=== PATIENT | male | born 1955 | race Caucasian/White ===

== ENCOUNTER 2020-01-23 20:36 | Inpatient (IN) | payer BC, SELFPAY ==
[2020-01-23] VITALS (21 sets, daily range): BP systolic 121–160; BP diastolic 68–94; PULSE 50–65; RESP 15–20; TEMP 36.3; O2SAT 79–99
[2020-01-23 20:56] LABS: Basophils Absolute Auto 0.1 K/mm3 (0.0-0.1); Basophils Percent Auto 1.1 % (0.2-1.2); Eosinophils Absolute Auto 0.3 K/mm3 (0-0.3); Eosinophils Percent Auto 3.5 % (0-4.4); Hematocrit 44.3 % (42.0-52.0); Immature Granulocyte Absolute 0.03 K/mm3 (0.00-0.031); Immature Granulocyte Percent A 0.4 % (0-0.5); Lymphocytes Absolute Auto 2.13 K/mm3 (0.9-3.2); Lymphocytes Percent Auto 26.3 % (18.3-44.2); Mean Corpuscular HGB Conc 31.6 g/dl (32-36); Mean Corpuscular Hemoglobin 27.9 pg (26-34); Mean Corpuscular Volume 88.4 fl (80-100); Mean Platelet Volume 9.9 fl (7.4-10.4); Monocytes Absolute Auto 0.6 K/mm3 (0.1-0.6); Monocytes Percent Auto 7.9 % (2.6-8.5); Neutrophils Absolute Auto 4.9 K/mm3 (1.3-6.7); Neutrophils Percent Auto 60.8 % (45.5-73.1); Platelet Count Result 266 k/mm3 (150-375); Red Blood Count 5.01 M/mm3 (4.6-6.20); Red Cell Distribution Width 13.5 % (11.5-14.5); White Blood Count 8.1 K/mm3 (4.5-10.0)
--- NOTE | 2020-01-23 21:03 | ED.GENADULT ---
HPI - General Adult General Chief complaint: GI Bleed Stated complaint: bloody stools Time Seen by Provider: 01/23/20 20:40 Source: RN notes reviewed History of Present Illness HPI narrative: Patient presents emergency department from home for GI bleed. Patient states he has had 3 episodes of bright red diarrhea today. He denies having any abdominal pain with the symptoms denies any fevers or chills chest pain shortness of breath or any other symptoms denies any blood thinner use Related Data Home Medications Medication Instructions Recorded Confirmed atorvastatin 20 mg PO DAILY 01/23/20 diclofenac sodium 150 mg PO DAILY 01/23/20 Allergies Allergy/AdvReac Type Severity Reaction Status Date / Time No Known Allergies Allergy Unverified 07/12/12 19:27 Review of Systems Review of Systems: Narrative: Gen.: Denies fevers or chills ENT: Denies congestion Respiratory: Denies shortness of breath or cough CV: Denies chest pain or palpitations GI: Denies abdominal pain nausea, emesis or diarrhea GI bleed Musculoskeletal: Denies back pain or muscle pain Neuro: Denies numbness, tingling, weakness or focal weakness Skin: Denies rash Except as documented, all other systems reviewed and negative [facility] Past Medical History Medical History (Updated 01/23/20 @ 22:35 by Aldo Garnett DO) Hypercholesterolemia Social History Social History (Updated 01/23/20 @ 21:04 by Aldo Garnett DO) Smoking status: Never smoker Exam Narrative: Exam Narrative: APPEARANCE: No acute distress, nontoxic, resting in bed EYES: EOMI HEENT: Normocephalic, atraumatic, OMM RESPIRATORY: No respiratory distress Clear to auscultation bilaterally with no rhonchi wheezing or rales. CARDIOVASCULAR: Regular rate and rhythm without murmurs rubs or gallops. ABDOMINAL: Soft, nontender, nondistended, no rebound or guarding Rectal: Moderate amount of dark brown stool that is Hemoccult positive MUSCULOSKELETAl: Moves all extremities. No clubbing, cyanosis or edema. NEURO: Awake and alert. Following commands, speech normal, no focal deficits SKIN:: Warm, dry. No rashes lesions or abrasions PSYCHIATRIC: Normal affect/mood, Course Course Emergency Course: Discussed with Dr. Sun sensation work-up. This time recommends admission for observation with patient to be started on Zosyn for possible GI infection Discussed Dr. Way presentation work-up. Agrees with admission at this time Discussed with patient and family results of workup and diagnosis. Discussed need for admission. Patient and family understand and agree to current treatment plan Vital Signs Vital signs: Vital Signs Temperature 97.3 F L 01/23/20 20:39 Pulse Rate 51 L 01/23/20 20:39 Respiratory Rate 18 01/23/20 20:39 Blood Pressure 160/85 H 01/23/20 20:39 Pulse Oximetry 95 01/23/20 20:39 Temperature 97.3 F L 01/23/20 20:39 Pulse Rate 51 L 01/23/20 20:39 Respiratory Rate 18 01/23/20 20:39 Blood Pressure 160/85 H 01/23/20 20:39 Pulse Oximetry 95 01/23/20 20:39 Medical Decision Making Vital Signs Vital Signs: Vital Signs Temperature 97.3 F L 01/23/20 20:39 Pulse Rate 51 L 01/23/20 20:39 Respiratory Rate 18 01/23/20 20:39 Blood Pressure 160/85 H 01/23/20 20:39 Pulse Oximetry 95 01/23/20 20:39 Temperature 97.3 F L 01/23/20 20:39 Pulse Rate 51 L 01/23/20 20:39 Respiratory Rate 18 01/23/20 20:39 Blood Pressure 160/85 H 01/23/20 20:39 Pulse Oximetry 95 01/23/20 20:39 Lab Data Result diagrams: 01/23/20 20:49 01/23/20 20:49 Labs: Lab Results 01/23/20 01/23/20 01/23/20 Range/Units 20:49 20:49 20:49 WBC 8.1 (4.5-10.0) K/mm3 RBC 5.01 (4.6-6.20) M/mm3 Hgb 14.0 (14.0-18.0) g/dL Hct 44.3 (42.0-52.0) % MCV 88.4 (80-100) fl MCH 27.9 (26-34) pg MCHC 31.6 L (32-36) g/dl RDW 13.5 (11.5-14.5) % Plt Count 266 (150-375) k/mm3 MPV 9.9 (7
[2020-01-23 21:06] LABS: INR 0.9; Prothrombin Time 13.1 Seconds (11.1-14.7)
[2020-01-23 21:07] LABS: Alanine Aminotransferase 30 U/L (4-50); Albumin Level 4.3 g/dL (3.5-5.1); Alkaline Phosphatase 96 U/L (38-126); Anion Gap 9 mmol/L (8-16); Aspartate Amino Transferase 26 U/L (17-59); Bilirubin,Total 0.4 mg/dL (0.2-1.3); Blood Urea Nitrogen 24 mg/dL (9-20); Calcium 8.9 mg/dL (8.4-10.2); Carbon Dioxide 33 mmol/L (22-30); Chloride 99 mmol/L (98-107); Estimated CRCL calculation 76 ml/min; Estimated Glomerular Filt Rate > 60; Glucose 131 mg/dL (75-110); Partial Thromboplastin Time 30.2 SECONDS (22.3-36.8); Potassium 4.2 mmol/L (3.4-5.0); Sodium 141 mmol/L (137-145)
[2020-01-23 21:19] LABS: Lactic Acid Reflex 0.9 mmol/L (0.7-2.1)
[2020-01-23] MEDS: SODIUM CHLORIDE 0.9% IV 1,000 ML 100 ML IV CONT (23:35)
--- NOTE | 2020-01-23 23:56 | ADMGEN ---
This patient, Raul Kirby, was admitted to Medical Room 347-. Patient/family oriented to hospital policies and general routines including ID bracelet, bed and alarms, visiting hours, pain management, procedures, bathroom and other care routines, personal items, smoking policy, room service/diet, and visiting hours. Information on how to activate the Rapid Response Team has been discussed. Patient/Family are encouraged to report perceived risks to care and to ask questions if they do not understand what they are told or what they should do.
[2020-01-24 00:29] VITALS: BP 120/68; PULSE 53; RESP 16; TEMP 36.3; O2SAT 96
[2020-01-24 00:32] VITALS: BMI 39.9
--- NOTE | 2020-01-24 01:20 | PM.IMHP ---
H&P: HPI History of Present Illness Date/Time: 01/24/20 01:20 Chief complaint: GI bleed Narrative: This is a pleasant 64 year old morbidly obese male with known history of Diverticular disease, hyperlipidemia, and arthritis who presented to the hospital tonight with a complaint of #3 episodes of bright red rectal bowel movements. He denies any abdominal or rectal pain. He also denies any vomiting or hematemesis. He has no previous history of GI bleeding or peptic ulcer disease. His last colonoscopy was 6 years ago. He denies any aspirin or anticoagulant use. He does take diclofenac for his arthritis. On further questioning he also denies any headache, blurry vision, dizziness, chest pain, shortness of breath, syncope, cough, fevers, abdominal pain, dysuria, hematuria or focal neuroloigical deficits. Routine labs in the ER demonstrated a normal H/H. ER provider has consulted gastroenterology, Dr. Sun who has asked that we admit the patient to the hospital so he can evaluate him for possible endoscopy. No other complaints tonight. Review of Systems Review of Systems: All systems reviewed & are unremarkable except as noted in HPI and below PMFSH Past Medical History Medical History Arthritis Diverticular disease Hypercholesterolemia Surgical History Surgical History Hx of colonoscopy Social History Social History Smoking status: Never smoker Second hand tobacco smoke exposure: No Alcohol intake: never Substance use: never Gender identity (if verbalized by the patient): Male Spiritual care concerns: No Comments Family history is reviewed and negative for clotting disorders. Meds Home Medications and Allergies Home Medications Medication Instructions Recorded Confirmed Type atorvastatin 20 mg PO DAILY 01/23/20 01/24/20 History diclofenac sodium 75 mg PO BID 01/23/20 01/24/20 History Allergies Allergy/AdvReac Type Severity Reaction Status Date / Time No Known Allergies Allergy Verified 01/24/20 00:44 Vital Signs Vital Signs - 24 hr 01/23/20 20:39 01/23/20 20:49 01/23/20 20:50 Temperature 36.3 C L Pulse Rate 51 L 50 L 51 L Respiratory Rate 18 16 19 Blood Pressure 160/85 H 141/94 H Pulse Oximetry 95 79 L 91 01/23/20 21:02 01/23/20 21:15 01/23/20 21:16 Temperature Pulse Rate 54 L 52 L 52 L Respiratory Rate 17 18 17 Blood Pressure 127/68 Pulse Oximetry 99 97 98 01/23/20 21:30 01/23/20 21:33 01/23/20 21:46 Temperature Pulse Rate 65 54 L 58 L Respiratory Rate 17 17 18 Blood Pressure 127/86 133/86 Pulse Oximetry 98 99 96 01/23/20 21:47 01/23/20 22:00 01/23/20 22:01 Temperature Pulse Rate 55 L 62 57 L Respiratory Rate 17 19 15 Blood Pressure 131/86 Pulse Oximetry 97 92 92 01/23/20 22:15 01/23/20 22:16 01/23/20 22:30 Temperature Pulse Rate 62 61 55 L Respiratory Rate 20 18 16 Blood Pressure 121/86 Pulse Oximetry 96 97 93 01/23/20 22:31 01/23/20 22:53 01/23/20 23:01 Temperature Pulse Rate 56 L 64 63 Respiratory Rate 16 18 18 Blood Pressure 135/90 131/86 Pulse Oximetry 93 91 95 01/23/20 23:02 01/23/20 23:15 01/23/20 23:16 Temperature Pulse Rate 60 51 L 53 L Respiratory Rate 18 17 15 Blood Pressure 123/90 Pulse Oximetry 93 91 01/24/20 00:29 Temperature 36.3 C L Pulse Rate 53 L Respiratory Rate 16 Blood Pressure 120/68 Pulse Oximetry 96 Exam Const: General: cooperative, healthy appearing, no acute distress, alert and awake Nutritional Appearance: obese Orientation/consciousness: patient oriented x3 HENMT: Head: normal to inspection General nose exam: Normal external nose present Face and sinus: normal facial exam Mouth: Yes Normal oral and palatal mucosa present and Yes oropharynx normal Eyes: Pupils: Equal, round and reactive pupil
[2020-01-24 05:29] VITALS: BP 136/60; PULSE 50; RESP 16; TEMP 36.3; O2SAT 94
[2020-01-24 06:14] LABS: Basophils Absolute Auto 0.1 K/mm3 (0.0-0.1); Basophils Percent Auto 0.8 % (0.2-1.2); Eosinophils Absolute Auto 0.2 K/mm3 (0-0.3); Eosinophils Percent Auto 3.1 % (0-4.4); Hematocrit 39.8 % (42.0-52.0); Hemoglobin 12.7 g/dL (14.0-18.0); Immature Granulocyte Absolute 0.04 K/mm3 (0.00-0.031); Immature Granulocyte Percent A 0.5 % (0-0.5); Lymphocytes Absolute Auto 1.71 K/mm3 (0.9-3.2); Lymphocytes Percent Auto 23.1 % (18.3-44.2); Mean Corpuscular HGB Conc 31.9 g/dl (32-36); Mean Corpuscular Hemoglobin 27.6 pg (26-34); Mean Corpuscular Volume 86.5 fl (80-100); Mean Platelet Volume 10.4 fl (7.4-10.4); Monocytes Absolute Auto 0.6 K/mm3 (0.1-0.6); Monocytes Percent Auto 7.4 % (2.6-8.5); Neutrophils Absolute Auto 4.8 K/mm3 (1.3-6.7); Neutrophils Percent Auto 65.1 % (45.5-73.1); Platelet Count Result 242 k/mm3 (150-375); Red Cell Distribution Width 13.4 % (11.5-14.5); White Blood Count 7.4 K/mm3 (4.5-10.0)
[2020-01-24 07:41] LABS: Alanine Aminotransferase 27 U/L (4-50); Albumin Level 3.7 g/dL (3.5-5.1); Alkaline Phosphatase 87 U/L (38-126); Anion Gap 8 mmol/L (8-16); Aspartate Amino Transferase 24 U/L (17-59); Bilirubin,Total 0.5 mg/dL (0.2-1.3); Blood Urea Nitrogen 25 mg/dL (9-20); Calcium 8.5 mg/dL (8.4-10.2); Carbon Dioxide 30 mmol/L (22-30); Chloride 104 mmol/L (98-107); Estimated CRCL calculation 85 ml/min; Estimated Glomerular Filt Rate > 60; Glucose 120 mg/dL (75-110); Potassium 4.1 mmol/L (3.4-5.0); Sodium 142 mmol/L (137-145)
--- NOTE | 2020-01-24 09:08 | WPDGICN ---
Assessment and Plan Assessment and plan (1) GI bleed: Qualifiers: GI bleed type/associated pathology: unspecified gastrointestinal hemorrhage type Qualified Code(s): K92.2 - Gastrointestinal hemorrhage, unspecified Code(s): K92.2 - Gastrointestinal hemorrhage, unspecified Status: Acute Assessment and Plan: Patient appears to have abrupt lower GI bleeding. Most likely this is on the basis of diverticular disease. His hemoglobin remained stable at 12 suggesting less bleeding than it appears clinically. Internal hemorrhoids cannot be excluded. Plan is for colonoscopy tomorrow after preparation today. Continue monitor hemoglobin closely. Allow liquid diet as tolerated today. GI Consult Note Consult date/time: 01/24/20 09:08 HPI: Raul Kirby is a 64 year old male Seen in evaluation at the request of the emergency room. Patient in usual state of health. Yesterday past at 3 least 3 large bloody stools. He denies any abdominal pain. He has never had bleeding before. His current weight appetite bowel movements are normal. Family history is noncontributory. Review of Systems Review of Systems: All systems reviewed & are unremarkable except as noted in HPI and below PMFSH Past Medical History Medical History (Updated 01/24/20 @ 01:[address] MD) Arthritis Diverticular disease Hypercholesterolemia Surgical History Surgical History (Updated 01/24/20 @ 01:[address] MD) Hx of colonoscopy Social History Social History (Updated 01/23/20 @ 21:04 by Aldo Garnett DO) Smoking status: Never smoker Second hand tobacco smoke exposure: No Alcohol intake: never Substance use: never Gender identity (if verbalized by the patient): Male Spiritual care concerns: No Meds Home Medications and Allergies Home Medications Medication Instructions Recorded Confirmed Type atorvastatin 20 mg PO DAILY 01/23/20 01/24/20 History diclofenac sodium 75 mg PO BID 01/23/20 01/24/20 History Allergies Allergy/AdvReac Type Severity Reaction Status Date / Time No Known Allergies Allergy Verified 01/24/20 00:44 Vital Signs Vital Signs - 24 hr 01/23/20 20:39 01/23/20 20:49 01/23/20 20:50 Temperature 97.3 F L Pulse Rate 51 L 50 L 51 L Respiratory Rate 18 16 19 Blood Pressure 160/85 H 141/94 H Pulse Oximetry 95 79 L 91 01/23/20 21:02 01/23/20 21:15 01/23/20 21:16 Temperature Pulse Rate 54 L 52 L 52 L Respiratory Rate 17 18 17 Blood Pressure 127/68 Pulse Oximetry 99 97 98 01/23/20 21:30 01/23/20 21:33 01/23/20 21:46 Temperature Pulse Rate 65 54 L 58 L Respiratory Rate 17 17 18 Blood Pressure 127/86 133/86 Pulse Oximetry 98 99 96 01/23/20 21:47 01/23/20 22:00 01/23/20 22:01 Temperature Pulse Rate 55 L 62 57 L Respiratory Rate 17 19 15 Blood Pressure 131/86 Pulse Oximetry 97 92 92 01/23/20 22:15 01/23/20 22:16 01/23/20 22:30 Temperature Pulse Rate 62 61 55 L Respiratory Rate 20 18 16 Blood Pressure 121/86 Pulse Oximetry 96 97 93 01/23/20 22:31 01/23/20 22:53 01/23/20 23:01 Temperature Pulse Rate 56 L 64 63 Respiratory Rate 16 18 18 Blood Pressure 135/90 131/86 Pulse Oximetry 93 91 95 01/23/20 23:02 01/23/20 23:15 01/23/20 23:16 Temperature Pulse Rate 60 51 L 53 L Respiratory Rate 18 17 15 Blood Pressure 123/90 Pulse Oximetry 93 91 01/24/20 00:29 01/24/20 05:29 Temperature 97.3 F L 97.3 F L Pulse Rate 53 L 50 L Respiratory Rate 16 16 Blood Pressure 120/68 136/60 Pulse Oximetry 96 94 Exam Narrative: Exam Narrative: Physical exam reveals Vital Signs to be stable HEENT exam unremarkable lungs are clear to auscultation and percussion heart is without murmur or extra sounds. Abdominal exam bowel sounds are present soft nontender with no organomegaly. Digital external rectal exam normal. Results Labs CBC & Chem 7: 01/24/20 04:58 01/24/20 0
[2020-01-24] MEDS: SODIUM CHLORIDE 0.9% IV 1,000 ML 100 ML IV CONT ×2 (09:09→18:43)
[2020-01-24 09:23] LABS: Hematocrit 41.2 % (42.0-52.0); Hemoglobin 13.3 g/dL (14.0-18.0)
[2020-01-24] MEDS: PEG (High)/E-LYTE SOLN 4,000 ML BTL 4000 ML PO (11:30)
--- NOTE | 2020-01-24 13:38 | PM.IMPN ---
Progress Note: A&P Assessment and Plan (1) GI bleed: Qualifiers: GI bleed type/associated pathology: unspecified gastrointestinal hemorrhage type Qualified Code(s): K92.2 - Gastrointestinal hemorrhage, unspecified Code(s): K92.2 - Gastrointestinal hemorrhage, unspecified Status: Acute Assessment and Plan: Clear liquids Colon prep tonight NPO past midnight Continue to monitor Appreciate GI note. H&H stable. (2) Hypercholesterolemia: Code(s): E78.00 - Pure hypercholesterolemia, unspecified Status: Chronic Assessment and Plan: Continue Atorvastatin. Subjective Date/time seen: 01/24/20 13:38 I feel well. Review of Systems Review of Systems: Narrative: Presented to ED after having BRBPR x 1 day. Constitutional: Comments: no weight loss, no fevers, no rigors, no chills. Eyes: Comments: no visions changes. ENT: Comments: no ear ache, no throat pain, no nasal congestion, no nasal discharge. Cardiovascular: Comments: no chest pain, no leg swelling. Respiratory: Comments: No cough, no sputum production. Gastrointestinal: Gastrointestinal: Reports hematochezia Musculoskeletal: Comments: no muscle aches, no joint pain. Integumentary/Breasts: Comments: no rashes. Neurologic: Comments: no sensory motor deficit. Hematologic/Lymphatic: Comments: No LAP Exam Narrative: Exam Narrative: Lying in bed. Const: General: cooperative, healthy appearing, comfortable, alert, awake and Physically active Nutritional Appearance: average body habitus Orientation/consciousness: patient oriented x3 Limitations: no limitations HENMT: Head: normal to inspection and normocephalic Ears: hearing grossly normal bilaterally General nose exam: Normal external nose present Face and sinus: normal facial exam Mouth: Yes Normal oral and palatal mucosa present Eyes: General: appearance normal, both eyes and all related structures Pupils: Equal, round and reactive pupils present EOM: EOMs intact bilaterally Neck: Neck: full ROM and supple Resp: Effort & Inspection: normal respiratory effort Auscultation: clear to auscultation bilaterally Cardio: Rate: regular rate Rhythm: regular rhythm GI: Inspection: normal to inspection and other (Old surgical scar on epigastrium.) GI Palp: Yes Soft to palpation and Yes No hepatosplenomegaly present Auscultation: normal bowel sounds Skin: General skin exam: normal color Lesions: no lesions Rashes: no rashes Neuro: General: patient oriented x3 and CN's II-XI intact bilaterally Cranial nerves: Yes CN's II-XII intact bilaterally and Yes Bilaterally intact EOM present Cognition (Neuro): normal cognition Speech: normal speech Gait exam (Neuro): Normal gait present Motor exam (neuro): 5/5 motor strength present throughout Sensory Exam: normal sensation Extrem: General: full ROM and no pedal edema Objective Data Vital Signs Vital Signs: Vital Signs - 24 hr 01/23/20 20:39 01/23/20 20:49 01/23/20 20:50 Temperature 97.3 F L Pulse Rate 51 L 50 L 51 L Respiratory Rate 18 16 19 Blood Pressure 160/85 H 141/94 H Pulse Oximetry 95 79 L 91 01/23/20 21:02 01/23/20 21:15 01/23/20 21:16 Temperature Pulse Rate 54 L 52 L 52 L Respiratory Rate 17 18 17 Blood Pressure 127/68 Pulse Oximetry 99 97 98 01/23/20 21:30 01/23/20 21:33 01/23/20 21:46 Temperature Pulse Rate 65 54 L 58 L Respiratory Rate 17 17 18 Blood Pressure 127/86 133/86 Pulse Oximetry 98 99 96 01/23/20 21:47 01/23/20 22:00 01/23/20 22:01 Temperature Pulse Rate 55 L 62 57 L Respiratory Rate 17 19 15 Blood Pressure 131/86 Pulse Oximetry 97 92 92 01/23/20 22:15 01/23/20 22:16 01/23/20 22:30 Temperature Pulse Rate 62 61 55 L Respiratory Rate 20 18 16 Blood Pressure 121/86 Pulse Oximetry 96 97 93 01/23/20 22:31 01/23/20 22:53 01/23/20 23:01 Temperature Pulse Rate 56 L 64 63 Respiratory Rate 16 18 18 Blood Pressure 135/90 131/86
[2020-01-24 14:28] VITALS: BP 150/85; PULSE 52; RESP 16; TEMP 36.2; O2SAT 95
[2020-01-24 14:36] LABS: Hematocrit 40.7 % (42.0-52.0); Hemoglobin 13.1 g/dL (14.0-18.0)
[2020-01-24 19:51] VITALS: BP 146/96; PULSE 55; RESP 16; TEMP 36.2; O2SAT 98
[2020-01-25] VITALS (7 sets, daily range): BP systolic 104–151; BP diastolic 56–88; PULSE 50–57; RESP 14–21; TEMP 36.2–37; O2SAT 94–97
[2020-01-25] MEDS: SODIUM CHLORIDE 0.9% IV 1,000 ML 100 ML IV CONT (04:34)
[2020-01-25] MEDS: LACTATED RINGERS 1,000 ML 150 ML IV CONT (12:29)
--- NOTE | 2020-01-25 13:36 | WPDANESEPPF ---
Anes - Initial Pre Proc Eval Procedure: Operation Date: 01/25/20 14:30 Proposed Procedures p Colonoscopy - Shimon Sun MD Date/Time: 01/25/20 13:36 Surgeon: Rodolfo Way MD Pre Op Diagnosis: GI bleed Patient Data Age: 64 Gender: M Height: 5 ft 9 in Weight: 122.7 kg Last Vital Signs Temp 98.6 F 01/25/20 12:31 Pulse 50 L 01/25/20 12:31 Resp 20 01/25/20 12:31 BP 146/72 H 01/25/20 12:31 Pulse Ox 95 01/25/20 12:31 Allergies Allergy/AdvReac Type Severity Reaction Status Date / Time No Known Allergies Allergy Verified 01/24/20 00:44 Home Medications Medication Instructions Recorded Confirmed Type atorvastatin 20 mg PO DAILY 01/23/20 01/24/20 History diclofenac sodium 75 mg PO BID 01/23/20 01/24/20 History Laboratory Tests 01/24/20 14:19 Hgb 13.1 g/dL L g/dL (14.0-18.0) Hct 40.7 % L % (42.0-52.0) Patient hx anesthesia problems: none Family hx anesthesia problems: none PMFSH Past Medical History Medical History (Updated 01/24/20 @ 01:[address] MD) Arthritis Diverticular disease Hypercholesterolemia Surgical History Surgical History (Updated 01/24/20 @ 01:[address] MD) Hx of colonoscopy Social History Social History (Updated 01/23/20 @ 21:04 by Aldo Garnett DO) Smoking status: Never smoker Second hand tobacco smoke exposure: No Alcohol intake: never Substance use: never Gender identity (if verbalized by the patient): Male Spiritual care concerns: No Anes - Eval Final PreProcedure Day of Procedure 01/25/20 13:36 Patient weight: morbidly obese Heart: regular rate and rhythm Lungs: clear to auscultation Airway: Mallampati scale class III Neurological: alert and oriented Last oral intake: >/= 8 hours ASA classification: III Emergent: no Anesthetic plan: proceed Anesthesia type and monitoring: general GIVS and standard monitoring Informed Consent: The patient's anesthetic plan and its attendant risks and benefits were discussed with the patient/family/POA. Questions were solicited and answers provided to the satisfaction of the patient/family/POA.
--- NOTE | 2020-01-25 15:06 | PM.IMPN ---
Progress Note: A&P Assessment and Plan (1) Diverticular hemorrhage: Code(s): K57.31 - Diverticulosis of large intestine without perforation or abscess with bleeding Status: Acute Assessment and Plan: -colonoscopy 01/25/[address] Sun: diverticular bleed without perforation in the mid transverse colon, I reviewed images and report -recommendations advance diet to high-fiber diet regular consistency -trending hemoglobins q.12 hours until stable -hopefully the bleeding will stop spontaneously and hopefully we can avoid surgery (2) Hypercholesterolemia: Code(s): E78.00 - Pure hypercholesterolemia, unspecified Status: Chronic Assessment and Plan: Continue Atorvastatin. Additional Plan Diet: High-fiber regular consistency DVT prophylaxis: SCDs Code status: Full code Disposition: Pending clinical course, change to inpatient with active GI bleed Subjective Date/time seen: 01/25/20 15:06 Patient examined. Patient feels good, had bowel prep last night. He states he had some blood yesterday and with a bowel prep his stools became clear. This morning he had a bright red bloody bowel movement. Patient had colonoscopy by Dr. Sun today which found diverticular bleed. Patient will need a be observed until hemoglobin stable and bleeding stops. Diet advanced to high-fiber regular consistency. Patient denies fever, chills, lightheadedness, dizziness, chest pain, palpitations. He endorses bright red blood per rectum once this morning. Review of Systems Review of Systems: All systems reviewed & are unremarkable except as noted in HPI and below Exam Narrative: Exam Narrative: - GENERAL: Pleasant male in no acute distress - EYES: EOMI. Anicteric. - HENT: Moist mucous membranes. No scleral icterus. - LUNGS: Clear to auscultation bilaterally, no wheezing, rhonchi, or rales. - CARDIOVASCULAR: Regular rate and rhythm. No murmur. No JVD. - ABDOMEN: Soft, non-tender and non-distended. No palpable masses. - EXTREMITIES: No edema. Peripheral pulses 2+. Non-tender. - NEUROLOGIC: No focal neurological deficits. CN II-XII grossly intact. - PSYCHIATRIC: Awake, Alert and oriented x 3. Appropriate mood and affect. - SKIN: No rashes or lesions. Warm. - LYMPH: No cervical lymphadenopathy. Objective Data Vital Signs Vital Signs: Vital Signs - 24 hr 01/24/20 19:51 01/25/20 04:27 01/25/20 12:31 Temperature 36.2 C L 36.6 C 37.0 C Pulse Rate 55 L 55 L 50 L Respiratory Rate 16 16 20 Blood Pressure 146/96 H 125/64 146/72 H Pulse Oximetry 98 94 95 01/25/20 13:57 01/25/20 14:07 01/25/20 14:17 Temperature Pulse Rate 57 L 55 L 53 L Respiratory Rate 21 H 20 18 Blood Pressure 104/56 L 114/59 L 121/64 Pulse Oximetry 95 96 95 01/25/20 14:49 Temperature 36.2 C L Pulse Rate 50 L Respiratory Rate 16 Blood Pressure 136/78 Pulse Oximetry 97 Intake/Output Intake/Output: Intake & Output 01/22/20 01/23/20 01/24/20 01/25/20 23:59 23:59 23:59 23:59 Intake Total 3010 1700 Output Total 725 Balance 2285 1700 Meds/Results Medications: Active Medications Generic Name Dose Route Start Last Admin Trade Name Claytonq PRN Reason Stop Dose Admin Atorvastatin Calcium 20 mg 01/24/20 09:00 01/24/20 08:59 Atorvastatin 20 Mg Tablet PO Not Given DAILY HOLLY Sodium Chloride 1,000 mls @ 100 mls/hr 01/23/20 22:25 01/25/20 04:34 Normal Saline Iv IV CONT 100 mls/hr .Q10H HOLLY Administration Quality VTE Prophylaxis VTE prophylaxis: mechanical ordered
[2020-01-25 18:05] LABS: Hematocrit 39.5 % (42.0-52.0); Hemoglobin 12.6 g/dL (14.0-18.0)
[2020-01-26 06:00] VITALS: BP 138/58; PULSE 54; RESP 12; TEMP 36.6; O2SAT 95
[2020-01-26 06:16] LABS: Hematocrit 37.9 % (42.0-52.0); Hemoglobin 12.1 g/dL (14.0-18.0)
--- NOTE | 2020-01-26 08:21 | WPDANESPN ---
Anes - Prog Note Post-Op Date/Time: 01/26/20 08:21 Cardiovascular status: normal Respiratory status: normal Airway patency: baseline Mental status: baseline Post-Op hydration status: normal Vital Signs: Last Vital Signs Temp 36.6 C 01/26/20 06:00 Pulse 54 L 01/26/20 06:00 Resp 12 01/26/20 06:00 BP 138/58 L 01/26/20 06:00 Pulse Ox 95 01/26/20 06:00 Pain Score (VAS): 0 I/O: Intake & Output 01/25/20 01/26/20 01/26/20 23:59 07:59 15:59 Intake Total 1030 800 Output Total 475 1200 Balance 555 -400 Laboratory Tests 01/26/20 06:04 01/24/20 04:58 01/25/20 01/26/20 18:00 06:04 Hgb 12.6 L 12.1 L Hct 39.5 L 37.9 L Microbiology 01/23/20 21:55 Blood Blood Culture - Preliminary 01/23/20 21:55 Blood Blood Culture - Preliminary Post-procedural complaints: none Patient Feedback: Patient satisfied with anesthetic care.
[2020-01-26] MEDS: ATORVASTATIN 20 MG TABLET PO (09:19)
--- NOTE | 2020-01-26 09:43 | P.CONGI_ITS ---
Assessment and Plan Assessment and plan (1) Diverticular hemorrhage: Code(s): K57.31 - Diverticulosis of large intestine without perforation or abscess with bleeding Status: Acute Assessment and Plan: Patient has had lower GI bleeding attributed to diverticulosis. Hemoglobin has remained stable no transfusion has been required. Plan is to continue high- fiber diet early discharge advised. May want to consider follow-up CBC in a week. No surgery will be needed necessary. GI Consult Note Consult date/time: 01/26/20 09:43 HPI: Raul Kirby is a 64 year old male Feels comfortable today. Tolerating diet. No significant additional bleeding described. Patient denies abdominal pain. Review of Systems Review of Systems: All systems reviewed & are unremarkable except as noted in HPI and below PMFSH Past Medical History Medical History Arthritis Diverticular disease Hypercholesterolemia Surgical History Surgical History Hx of colonoscopy Social History Social History Smoking status: Never smoker Second hand tobacco smoke exposure: No Alcohol intake: never Substance use: never Gender identity (if verbalized by the patient): Male Spiritual care concerns: No Meds Home Medications and Allergies Home Medications Medication Instructions Recorded Confirmed Type atorvastatin 20 mg PO DAILY 01/23/20 01/24/20 History diclofenac sodium 75 mg PO BID 01/23/20 01/24/20 History Allergies Allergy/AdvReac Type Severity Reaction Status Date / Time No Known Allergies Allergy Verified 01/24/20 00:44 Vital Signs Vital Signs - 24 hr 01/25/20 12:31 01/25/20 13:57 01/25/20 14:07 Temperature 98.6 F Pulse Rate 50 L 57 L 55 L Respiratory Rate 20 21 H 20 Blood Pressure 146/72 H 104/56 L 114/59 L Pulse Oximetry 95 95 96 01/25/20 14:17 01/25/20 14:49 01/25/20 21:02 Temperature 97.2 F L 98 F Pulse Rate 53 L 50 L 52 L Respiratory Rate 18 16 14 Blood Pressure 121/64 136/78 151/88 H Pulse Oximetry 95 97 96 01/26/20 06:00 Temperature 97.8 F Pulse Rate 54 L Respiratory Rate 12 Blood Pressure 138/58 L Pulse Oximetry 95 Exam Narrative: Exam Narrative: Physical exam reveals Vital Signs to be stable. Lungs are clear. Heart without murmur. Abdomen benign soft nontender with no organomegaly. Results Labs CBC & Chem 7: 01/26/20 06:04 01/24/20 04:58 Labs: Short CBC 01/25/20 01/26/20 Range/Units 18:00 06:04 Hgb 12.6 L 12.1 L (14.0-18.0) g/dL Hct 39.5 L 37.9 L (42.0-52.0) %
--- NOTE | 2020-01-26 09:59 | PM.IMPN ---
Progress Note: A&P Assessment and Plan (1) Hypercholesterolemia: Code(s): E78.00 - Pure hypercholesterolemia, unspecified Status: Chronic Assessment and Plan: -Resume statin therapy (2) Diverticular hemorrhage: Code(s): K57.31 - Diverticulosis of large intestine without perforation or abscess with bleeding Status: Acute Assessment and Plan: -Seen on colonoscopy 01/25/[address] Sun, diverticular bleed starting in mid transverse colon. Patient is still having continuous bleeding episodes with hemoglobin slowly dropping down to 12.1. No transfusions indicated at this time his hemoglobin is above 7, no surgery indicated as well. Patient will likely be discharged later this evening or tomorrow morning. Additional Plan Diet: High-fiber regular consistency DVT prophylaxis: SCDs Code status: Full code Disposition: Home, waiting for hemoglobin to be stable Subjective Date/time seen: 01/26/20 09:59 Patient examined. Hemoglobin stable 12.1 this morning, slowly down trending from the 23rd. Will need to continue following until stable. Surgery is not indicated at this time and patient will continue on high-fiber diet. He still having active bleeding episodes. I have updated his daughter who is a nurse. Patient denies fever, chills, nausea, vomiting, diarrhea, abdominal pain, constipation. He endorses hematochezia that is still bright red blood. Review of Systems Review of Systems: All systems reviewed & are unremarkable except as noted in HPI and below Gastrointestinal: Gastrointestinal: Reports hematochezia Exam Narrative: Exam Narrative: - GENERAL: Pleasant male in no acute distress - EYES: EOMI. Anicteric. - HENT: Moist mucous membranes. No scleral icterus. - LUNGS: Clear to auscultation bilaterally, no wheezing, rhonchi, or rales. - CARDIOVASCULAR: Regular rate and rhythm. No murmur. No JVD. - ABDOMEN: Soft, non-tender and non-distended. No palpable masses. - EXTREMITIES: No edema. Peripheral pulses 2+. Non-tender. - NEUROLOGIC: No focal neurological deficits. CN II-XII grossly intact. - PSYCHIATRIC: Awake, Alert and oriented x 3. Appropriate mood and affect. - SKIN: No rashes or lesions. Warm. - LYMPH: No cervical lymphadenopathy. Objective Data Vital Signs Vital Signs: Vital Signs - 24 hr 01/25/20 12:31 01/25/20 13:57 01/25/20 14:07 Temperature 37.0 C Pulse Rate 50 L 57 L 55 L Respiratory Rate 20 21 H 20 Blood Pressure 146/72 H 104/56 L 114/59 L Pulse Oximetry 95 95 96 01/25/20 14:17 01/25/20 14:49 01/25/20 21:02 Temperature 36.2 C L 36.6 C Pulse Rate 53 L 50 L 52 L Respiratory Rate 18 16 14 Blood Pressure 121/64 136/78 151/88 H Pulse Oximetry 95 97 96 01/26/20 06:00 Temperature 36.6 C Pulse Rate 54 L Respiratory Rate 12 Blood Pressure 138/58 L Pulse Oximetry 95 Intake/Output Intake/Output: Intake & Output 01/23/20 01/24/20 01/25/20 01/26/20 23:59 23:59 23:59 23:59 Intake Total 3010 3493 1280 Output Total 684 034 7491 Balance 2285 3018 80 Meds/Results Medications: Active Medications Generic Name Dose Route Start Last Admin Trade Name Josie PRN Reason Stop Dose Admin Atorvastatin Calcium 20 mg 01/24/20 09:00 01/26/20 09:19 Atorvastatin 20 Mg Tablet PO 20 mg DAILY HOLLY Administration Labs Labs: Laboratory Results - last 24 hr 01/25/20 01/26/20 18:00 06:04 Hgb 12.6 L 12.1 L Hct 39.5 L 37.9 L Quality VTE Prophylaxis VTE prophylaxis: mechanical ordered
[2020-01-26 14:00] VITALS: BP 121/70; PULSE 49; RESP 16; TEMP 36.4; O2SAT 96
[2020-01-26 18:04] LABS: Hematocrit 40.1 % (42.0-52.0)
--- NOTE | 2020-01-26 18:16 | PM.DS ---
DS: Admitting Diagnosis Admitting Diagnosis Admitting Diagnosis: GI bleed DS: Discharge Diagnosis Discharge Diagnosis (1) Hypercholesterolemia: Code(s): E78.00 - Pure hypercholesterolemia, unspecified Status: Chronic Assessment and Plan: -Resume statin therapy (2) Diverticular hemorrhage: Code(s): K57.31 - Diverticulosis of large intestine without perforation or abscess with bleeding Status: Acute Assessment and Plan: Diverticular bleed seen on colonoscopy 01/25/[address] Sun, diverticular bleed starting in mid transverse colon. Hemoglobin has stabilized around 12-13. No blood transfusions or surgery were indicated as his bleeding was minimal. Patient stable for discharge home. DS: Summary Hospital Course Reason for hospitalization: GI bleed Hospital Course: Patient is a 64-year-old male past medical history of hyperlipidemia who presents to the ED with complaints of GI bleed. He had history of diverticulitis and known diverticulosis on previous colonoscopies. Patient's hemoglobin decreased from 14-12 been stabilized around 13 at time of discharge. Patient had colonoscopy on 01/25/[address] Sun who found likely source of diverticular bleed mid transverse colon. As patient's bleeding has slowed down, hemoglobin has stabilized around 13, patient is having no signs or symptoms of anemia, he is stable for discharge. Blood transfusions and surgery were not indicated as bleeding was minimal. I advised patient that if he starts getting lightheaded, dizziness, chest pain, shortness of breath that there may be signs of too much blood loss and to come back to hospital. I informed patient that diverticular bleeds can be recurrent. Patient understands that at some point in the future he may need surgery if the bleeding is too much. Patient should continue on a high-fiber diet at this time. Patient will follow-up with PCP in a week. Patient understands and agrees with plan. Patient's vitals stable, labs stable, patient is stable for discharge. Status at Discharge Functional status at discharge: independent ambulation Overall status at discharge: patient is back to baseline Time Spent with Patient Time attestation: Total time spent providing and/or coordinating discharge services:35 Time spent: Greater than 30 minutes Exam Narrative: Exam Narrative: - GENERAL: Pleasant male in no acute distress - EYES: EOMI. Anicteric. - HENT: Moist mucous membranes. No scleral icterus. - LUNGS: Clear to auscultation bilaterally, no wheezing, rhonchi, or rales. - CARDIOVASCULAR: Regular rate and rhythm. No murmur. No JVD. - ABDOMEN: Soft, non-tender and non-distended. No palpable masses. - EXTREMITIES: No edema. Peripheral pulses 2+. Non-tender. - NEUROLOGIC: No focal neurological deficits. CN II-XII grossly intact. - PSYCHIATRIC: Awake, Alert and oriented x 3. Appropriate mood and affect. - SKIN: No rashes or lesions. Warm. - LYMPH: No cervical lymphadenopathy. DS: Data Data Completed and Pending Labs on day of discharge: Labs from last 24 hours 01/26/20 01/26/20 17:58 06:04 Hgb 13.0 L 12.1 L Hct 40.1 L 37.9 L Preliminary micro results at discharge 01/23/20 21:55 Blood Culture - Preliminary Blood 01/23/20 21:55 Blood Culture - Preliminary Blood Discharge Plan Discharge Attending physician on discharge: Jade Aleman Consulting providers: Shimon Sun Discharging Clinician: Jade Aleman Anticipated Discharge Date/Time: 01/26/20 18:13 Patient Disposition: Home, Self-Care Activity: as tolerated Diet: high fiber Discharge Instructions: Will likely continue to have some bleeding which will hopefully stop on its own. If you start getting lightheaded, dizziness, chest pain, shortness of breath those are signs that your blood loss may be significant and you should come to hospital. If you get recurrent bleeding in the future you may need t
== END 2020-01-26 18:50 | disposition home or self-care (01) | DRG 379 ==
LOC: ANHED 22:36 → ANH3MED 22:52
PROVIDERS: Internal Medicine Gastroenterology; Admitting Provider Family Medicine; Emergency Provider Emergency Medicine; PCP Internal Medicine; Visit Provider Student in an Organized Health Care Education/Training Program
PROC: 0DJD8ZZ Inspection of Lower Intestinal Tract, Via Natural or Artificial Opening Endoscopic (ICD-10-PCS; CPT 45378; principal; 2020-01-25 14:30)
DX: K57.31 Diverticulosis of large intestine without perforation or abscess with bleeding (principal); E78.5 Hyperlipidemia, unspecified; M19.90 Unspecified osteoarthritis, unspecified site; E66.01 Morbid (severe) obesity due to excess calories; Z68.39 Body mass index [BMI] 39.0-39.9, adult; K64.8 Other hemorrhoids
CPT/HCPCS: 36415; 80053; 83605; 85014; 85018; 85025; 85610; 85730; 86850; 86900; 86901; 87040; 96361; 96365; 99285; A9270; G0378; J2543; J2704; J7030; J7120

== ENCOUNTER 2020-08-12 11:16 | Emergency (ER) | payer MEDICARE, SELFPAY ==
--- NOTE | ~2020-08-12 | XR_ITS ---
EXAMINATION: XR chest 2V EXAM DATE: 08/12/2020 11:34 INDICATION: choked on salad 2 days ago, now cough and cp. TECHNIQUE: Frontal and lateral projections of the chest obtained and reviewed. Comparison is made to prior examination from 2008. FINDINGS: There is sizable, but subsegmental right upper lobe airspace disease consistent with atele ctasis or pneumonia. Recommend 2-4 week follow-up exam to exclude any chronic underlying process. The lungs are otherwise clear. There are no pleural effusions. The cardiomediastinal silhouette is wit hin normal limits. There is no pneumothorax suspected. The bones and soft tissues are unremarkable. IMPRESSION: Subsegmental right upper lobe airspace disease consistent with atelectasis or pneumonia. Recommend 2-4 week follow-up exam to exclude any chronic underlying process. Reviewed, dictated and finalized at location A. IMPRESSION: Subsegmental right upper lobe airspace disease consistent with atel ectasis or pneumonia. Recommend 2-4 week follow-up exam to exclude any chronic underlying process.
[2020-08-12 11:25] VITALS: BP 142/86; PULSE 57; RESP 16; TEMP 36.8; O2SAT 96
--- NOTE | 2020-08-12 11:46 | ED.SOB ---
HPI - SOB/Dyspnea General Chief Complaint: Upper Respiratory Infection Stated Complaint: CHOKED/CHEST PAIN/COUGH Time Seen by Provider: 08/12/20 11:36 Source: patient, family and RN notes reviewed Mode of arrival: ambulatory Limitations: no limitations History of Present Illness HPI Narrative: 65-year-old male presents to the [facility] with complaints of intermittent coughing and shortness of breath since choking on a piece of salad 2 days ago. States he has had some right upper chest pain with deep breathing. Denies nausea vomiting or diarrhea. No fevers. MD elicited complaint: shortness of breath and cough Onset (ago): day(s) (2) Related Data Home Medications Medication Instructions Recorded Confirmed atorvastatin 20 mg PO DAILY 01/23/20 08/12/20 Allergies Allergy/AdvReac Type Severity Reaction Status Date / Time No Known Allergies Allergy Verified 08/12/20 11:48 Review of Systems Review of Systems: All systems reviewed & are unremarkable except as noted in HPI and below Constitutional: Constitutional: Reports no additional constitutional complaints, Denies chills and Denies fever(s) Eyes: Eyes: Reports no additional eye complaints ENT: Reports system reviewed and no additional complaints, except as documented, Denies dysphagia, Denies vertigo, Denies dizziness, Denies nasal congestion and Denies sore throat Cardiovascular: Cardiovascular: Reports no additional cardiovascular complaints, Denies chest pain, Denies rapid heart rate, Denies radiating jaw, neck or arm pain and Denies slow heart rate Respiratory: Respiratory: Reports as per HPI, Reports cough, Reports dyspnea and Reports wheezing Gastrointestinal: Gastrointestinal: Reports no additional gastrointestinal complaints, Denies abdominal pain, Denies diarrhea, Denies nausea and Denies vomiting Genitourinary: Genitourinary: Reports no additional male genitourinary complaints Musculoskeletal: Musculoskeletal: Reports no additional musculoskeletal complaints, Denies back pain, Denies myalgias and Denies muscle cramps Integumentary/Breasts: Skin/Breast: Reports system reviewed and no additional complaints, except as docu and Denies rash Neurologic: Reports system reviewed and no additional complaints, except as documented Psychiatric: Psychiatric: Reports no additional psychiatric complaints Hematologic/Lymphatic: Hematologic/Lymphatic: Reports no additional hematologic/lymphatic complaints PMFSH Past Medical History Medical History Arthritis Diverticular disease Hypercholesterolemia Surgical History Surgical History Hx of colonoscopy Social History Social History Smoking status: Never smoker Second hand tobacco smoke exposure: No Alcohol intake: never Substance use: never Gender identity (if verbalized by the patient): Male Spiritual care concerns: No Comments My past med Exam Const: General: healthy appearing, no acute distress and alert Nutritional Appearance: well nourished and obese Orientation/consciousness: patient oriented x3 Limitations: no limitations HENMT: Head: normal to inspection Ears: external ears normal General nose exam: Normal external nose present and Normal nares present Mouth: Yes lip normal Throat: posterior oropharynx normal and uvula midline Eyes: Conjunctivae: conjunctivae normal Pupils: Equal, round and reactive pupils present Neck: Neck: normal visual inspection, no lymphadenopathy and no meningeal signs Chest: Chest palpation & inspection: normal inspection of the chest and no tenderness Resp: Effort & Inspection: normal respiratory effort and no use of accessory muscles Auscultation: clear to auscultation bilaterally, no crackles, no rales, no rhonchi and no wheezes Cardio: Rate: regular rate Rhythm: regular rhythm GI: GI Palp: Yes
== END 2020-08-12 12:05 | disposition home or self-care (01) ==
PROVIDERS: Emergency Provider Nurse Practitioner; PCP Internal Medicine
DX: J18.1 Lobar pneumonia, unspecified organism (principal); M19.90 Unspecified osteoarthritis, unspecified site; E78.00 Pure hypercholesterolemia, unspecified
CPT/HCPCS: 71046; 99213; G0463

== ENCOUNTER 2020-08-16 07:22 | Outpatient (CLI) | payer MEDICARE, SELFPAY ==
--- NOTE | ~2020-08-16 | CT_ITS ---
EXAMINATION: CT diagnostic chest w con EXAM DATE: 08/16/2020 08:34 INDICATION: Pneumonia, Cough cough pneumonia x1wk, previous smoker. Symptoms one week, reportedly s tarted after choking on salad. TECHNIQUE: Spiral CT of the chest following intravenous injection of 75 mL Omnipaque 350. Axial, cor onal and sagittal images of the chest were reviewed. Coronal maximum intensity pixel images of chest reviewed. The dose-length product (DLP) for this examination was 807.01 mGy-cm. The exposure was t ailored according to patient size (auto mA exposure control), and iterative reconstruction (ASIR) was used as additional dose reduction technique. Correlation is made to abnormal chest x-ray 08/12/2020. FINDINGS: No central pulmonary emboli. There is been progression in the atelectasis, now the right u pper lobe is completely collapsed with some ipsilateral mediastinal shift. The right upper lobe bronc hus appears completely collapsed, with scattered occlusions of other segmental regions as well. Uncer tain whether or not this is from endobronchial debris or mass. Homogeneous enhancement, appearance is most consistent with postobstructive atelectasis but can't exclude superimposed infection. Mild narr owing of the bronchus intermedius, and lower lobe bronchi. Some small scattered right lower lobe grou ndglass opacities, nonspecific pneumonitis, but could be acute infectious process. There is no mediastinal, hilar or axillary lymphadenopathy. There is no pneumothorax. Heart jonny l in size. There is mild coronary arterial calcification, arterial sclerosis. There is hepatic armand atosis. Incompletely imaged right renal lesion, could be the cyst seen on ultrasound 2018. There is thoracic spondylosis without osteoblastic or osteolytic lesions identified. IMPRESSION: 1. Occluded right upper lobe bronchus with progression of complete collapse right upper lobe, probab ly postobstructive atelectasis. Differential diagnosis includes foreign body (particularly given hist ory above), cancer. 2. Nonspecific small amount of right lower lobe pneumonitis. 3. Hepatic steatosis. Reviewed, dictated and finalized at location B. IMPRESSION: 1. Occluded right upper lobe bronchus with progression of complete collapse ri ght upper lobe, probably postobstructive atelectasis. Differential diagnosis in cludes foreign body (particularly given history above), cancer. 2. Nonspecific small amount of right lower lobe pneumonitis. 3. Hepatic steatosis.
[2020-08-16 07:39] LABS: Basophils Absolute Auto 0.09 K/mm3 (0.00-0.10); Basophils Percent Auto 1.4 % (0.0-1.0); Eosinophils Absolute Auto 0.37 K/mm3 (0.02-0.50); Eosinophils Percent Auto 5.7 % (1.0-6.0); Hematocrit 45.2 % (37.0-46.0); Hemoglobin 14.4 g/dL (12.4-15.3); Immature Granulocyte Absolute 0.05 K/mm3 (0.00-0.00); Immature Granulocyte Percent A 0.8 % (0.0-0.0); Lymphocytes Percent Auto 23.1 % (18.0-42.0); Mean Corpuscular HGB Conc 31.9 g/dL (32.0-36.0); Mean Corpuscular Hemoglobin 27.3 pg (27.0-31.0); Mean Corpuscular Volume 85.6 fL (78.0-102.0); Mean Platelet Volume 9.8 fl (8.7-11.0); Monocytes Absolute Auto 0.48 K/mm3 (0.10-0.90); Monocytes Percent Auto 7.4 % (2.0-11.0); Neutrophils Percent Auto 61.6 % (50.0-70.0); Platelet Count Result 219 K/mm3 (150-420); Red Blood Count 5.28 M/mm3 (4.70-6.10); Red Cell Distribution Width 13.7 % (11.6-14.4); White Blood Count 6.5 K/mm3 (4.8-10.8)
[2020-08-16 07:47] LABS: Alanine Aminotransferase 27 U/L (16-63); Albumin Level 3.5 g/dL (3.4-5.0); Alkaline Phosphatase 101 U/L (46-116); Anion Gap 10 mmol/L (8-16); Aspartate Amino Transferase 12 U/L (15-37); Bilirubin,Total 0.5 mg/dL (0.00-1.00); Blood Urea Nitrogen 21 mg/dL (7-18); Calcium 8.9 mg/dL (8.5-10.1); Carbon Dioxide 26 mmol/L (21-32); Chloride 104 mmol/L (98-108); Cholesterol 219 mg/dL (0-200); Creatine Kinase 86 U/L (39-308); Estimated Glomerular Filt Rate 59; Glucose 142 mg/dL (70-99); HDL Direct 33 mg/dL (40-60); LDL Cholesterol Calculated 148 mg/dL (<130); Osmolality Calculated 295 mOsm/kg (285-295); Potassium 4.5 mmol/L (3.5-5.1); Sodium 140 mmol/L (136-145); Total Protein 7.1 g/dL (6.4-8.2); Triglycerides 192 mg/dL (0-150)
[2020-08-16 07:55] LABS: Add Urine Microscopic? NO; Appearance Urine Clear (Clear); Bilirubin Urine Negative (Negative); Blood Urine Negative (Negative); Color Urine Light Yellow (Yellow); Glucose Urine UA Negative (Negative); Ketones Urine Negative (Negative); Leukocyte Esterase Ur Negative (Negative); Nitrate Urine Negative (Negative); Protein Urine Negative (Negative); Urobilinogen Urine 0.2 mg/dL (0.2-1.0)
[2020-08-16 08:07] LABS: Creatinine Urine 99.66 mg/dL (40-278); MALB Creatinine Ratio 15.1 mg/g (0-30); Microalbumin Urine Random 15.1 mg/L
== END 2020-08-16 07:23 | disposition home or self-care (01) ==
PROVIDERS: PCP Internal Medicine; Visit Provider Internal Medicine
DX: E78.2 Mixed hyperlipidemia (principal); I10 Essential (primary) hypertension; E11.9 Type 2 diabetes mellitus without complications; J69.0 Pneumonitis due to inhalation of food and vomit; R05 Cough
CPT/HCPCS: 36415; 71260; 80053; 80061; 81003; 82043; 82550; 83036; 85025; Q9967

== ENCOUNTER 2021-03-01 09:01 | Outpatient (CLI) | payer MEDICARE, SELFPAY ==
[2021-03-01 10:30] LABS: Influenza A QL RT-PCR Negative (Negative); Influenza B QL RT-PCR Negative (Negative); SARS-CoV-2 RNA PCR Positive (Negative)
== END 2021-03-01 09:02 | disposition home or self-care (01) ==
LOC: CHSLAB 09:05
PROVIDERS: PCP Internal Medicine; Visit Provider Internal Medicine
DX: U07.1 COVID-19 (principal); J06.9 Acute upper respiratory infection, unspecified
CPT/HCPCS: 87502; C9803; U0003; U0005

== ENCOUNTER 2021-09-28 12:44 | Outpatient (CLI) | payer MEDICARE, SELFPAY ==
--- NOTE | ~2021-09-28 | CT_ITS ---
EXAMINATION: CT lung screening DATE: 09/28/2021 12:59 INDICATION: History of nicotine dependence TECHNIQUE: Computed tomography (CT) of the chest was performed without intravenous contrast. The dose -length product was 460.51 mGy-cm. Automated exposure control and iterative reconstruction technique were employed. COMPARISON: CT dated 08/16/2020 FINDINGS: There are calcified mediastinal and right hilar lymph nodes consistent with chronic granulo matous disease. Heart size normal. There is right lower lobe atelectasis. Mild atherosclerosis of the aorta and coronary arteries. Interval resolution of right upper lobe collapse. There are calcified g ranulomas in the spleen. There are a few small 1-2 mm nodules, likely benign. There is mild emphysema . Mild thoracic spondylosis. No pneumothorax. No endobronchial lesions. IMPRESSION: 1. Lung-RADS category 2: Benign appearance or behavior. Continue annual screening with noncontrast lo w-dose chest CT in 12 months. Reviewed, dictated and finalized at location A. IMPRESSION: 1. Lung-RADS category 2: Benign appearance or behavior. Continue annual screeni ng with noncontrast low-dose chest CT in 12 months.
== END 2021-09-28 12:45 | disposition home or self-care (01) ==
LOC: CHSIMG 12:46
PROVIDERS: PCP Internal Medicine; Visit Provider Internal Medicine
DX: Z12.2 Encounter for screening for malignant neoplasm of respiratory organs (principal); Z87.891 Personal history of nicotine dependence
CPT/HCPCS: 71271

== ENCOUNTER 2022-01-02 10:50 | Outpatient (CLI) | payer MEDICARE, SELFPAY ==
--- NOTE | ~2022-01-02 | XR_ITS ---
EXAM: XR shoulder RT min 2V DATE: 01/02/2022 11:46 HISTORY: DIFFUSE JOINT PAIN, PSORIATIC ARTHROPATHY . COMPARISON: None available. FINDINGS: Normal mineralization. No fracture or dislocation. No lytic or blastic lesion. Moderate le ft and mild right AC joint hypertrophy. Severe bilateral glenohumeral narrowing, sclerosis, and osteo phytosis. Amorphous calcification in the right posterior rotator cuff. Subacromial narrowing on the l eft as can be seen with rotator cuff pathology. No erosion or periosteal change. Calcified hilar node s. IMPRESSION: Severe bilateral glenohumeral osteoarthritis. Calcific rotator cuff tendinitis on the rig ht. Rotator cuff tear suspected in the left shoulder. Reviewed, dictated and finalized at location K. IMPRESSION: Severe bilateral glenohumeral osteoarthritis. Calcific rotator cuff tendinitis on the right. Rotator cuff tear suspected in the left shoulder.
--- NOTE | ~2022-01-02 | XR_ITS ---
EXAMINATION: XR shoulder LT min 2V DATE: 01/02/2022 11:46 INDICATION: Diffuse joint pain. Psoriatic arthropathy. TECHNIQUE: AP internally and externally rotated, AP oblique externally rotated and transscapular Y vi ews of the left shoulder were obtained. COMPARISON: None FINDINGS: Normal alignment. No acute fracture. There appears be subtle old fracture deformity at the proximal metadiaphyseal region. Severe osteoarthritis at the left glenohumeral joint characterized by nonunifo rm joint space narrowing and moderate-sized marginal osteophytes along the inferomedial humeral head. Moderate osteoarthritis at the left acromioclavicular joint. Noted is a bifid anterior left fourth r ib. Visualized portions of the upper lung zones are clear. Soft tissues are unremarkable. IMPRESSION: Severe left glenohumeral and moderate acromioclavicular osteoarthritis. Reviewed, dictated and finalized at location B.
--- NOTE | ~2022-01-02 | XR_ITS ---
EXAMINATION: XR wrist LT min 3V, XR wrist RT min 3V, XR hand RT min 3V, XR hand LT min 3V DATE: 01/02/2022 11:46 INDICATION: Psoriatic arthritis with diffuse joint pain TECHNIQUE: 1. Posteroanterior, ulnar deviation, oblique, and lateral views of the left wrist were obtained. 2. Dorsal palmar, oblique and lateral views of the left hand were obtained. 3. Posteroanterior, ulnar deviation, oblique, and lateral views of the right wrist were obtained. 4. Dorsal palmar, oblique and lateral views of the right hand were obtained. COMPARISON: None. FINDINGS: Alignment of the bilateral hands and wrists is normal. No fracture identified. Chondrocalcinosis at the bilateral triangular fibrocartilage complexes. Relatively symmetric polyarticular osteoarthritis at the bilateral hands and wrists, severe at the first carpal metacarpal joints, mild to moderate sev erity at at the bilateral first metacarpophalangeal and few of the distal interphalangeal joints and mild at the wrist, first carpometacarpal, the remaining interphalangeal joints and at the second and third metacarpophalangeal joints. A few nonspecific small lucencies along the margins of a few of the heads of the middle phalanges, one at the ulnar margin of the head of the left fourth middle phalanx which appears to demonstrate loss of the overlying cortex suspicious for an erosion. Remainder . Dem onstrate intact appearing cortices on the provided projections and remaining for degenerative cyst ve rsus possible erosions. No evident active osteolysis, at the bursitis or other findings to more speci fic for psoriatic arthritis. There does appear to be some nonspecific thickening of the soft tissues at the digits which can be seen with psoriasis but could also be related to body habitus. IMPRESSION: 1. Typical pattern of relatively symmetric polyarticular osteoarthritis at the bilateral hands and wr ists as detailed above, severe at the bilateral first carpal metacarpal joints. 2. A few nonspecific periarticular lucencies at the heads of a few of the middle phalanges which alejandro in equivocal for either erosions such as in the setting of psoriatic arthritis versus degenerative cy sts. Similarly there is some nonspecific diffuse swelling of the digits which could also be seen with psoriasis but could also be related to body habitus. Reviewed, dictated and finalized at location B. IMPRESSION: 1. Typical pattern of relatively symmetric polyarticular osteoarthritis at the bilateral hands and wrists as detailed above, severe at the bilateral first car pal metacarpal joints. 2. A few nonspecific periarticular lucencies at the heads of a few of the middl e phalanges which remain equivocal for either erosions such as in the setting o f psoriatic arthritis versus degenerative cysts. Similarly there is some nonspe cific diffuse swelling of the digits which could also be seen with psoriasis bu t could also be related to body habitus. IMPRESSION: 1. Typical pattern of relatively symmetric polyarticular osteoarthritis at the bilateral hands and wrists as detailed above, severe at the bilateral first car pal metacarpal joints. 2. A few nonspecific periarticular lucencies at the heads of a few of the middl e phalanges which remain equivocal for either erosions such as in the setting o f psoriatic arthritis versus degenerative cysts. Similarly there is some nonspe cific diffuse swelling of the digits which could also be seen with psoriasis bu t could also be related to body habitus.
--- NOTE | ~2022-01-02 | XR_ITS ---
EXAM: XR knee RT 3V, XR knee LT 3V DATE: 01/02/2022 11:48 HISTORY: DIFFUSE JOINT PAIN,PSORIATIC ARTHROPATHY . COMPARISON: None available. FINDINGS: Normal mineralization. No fracture or dislocation. No lytic or blastic lesion. Severe left and moderate right medial joint space narrowing. Loss of valgus alignment, worse in the left knee. M oderate bilateral tricompartmental osteophytosis. No erosion or periosteal change. Minimal basilar ca lcification. Ossified loose joint bodies in the right posterior joint recess. Chondrocalcinosis. IMPRESSION: Severe left and moderate right knee arthritis. Chondrocalcinosis, as can be seen in CPPD. Reviewed, dictated and finalized at location K. IMPRESSION: Severe left and moderate right knee arthritis. Chondrocalcinosis, a s can be seen in CPPD.
[2022-01-02 11:08] LABS: Basophils Absolute Auto 0.07 K/mm3 (0.00-0.10); Basophils Percent Auto 1.1 % (0.0-1.0); Eosinophils Absolute Auto 0.21 K/mm3 (0.02-0.50); Eosinophils Percent Auto 3.4 % (1.0-6.0); Hematocrit 43.7 % (37.0-46.0); Hemoglobin 13.9 g/dL (12.4-15.3); Immature Granulocyte Absolute 0.03 K/mm3 (0.00-0.00); Immature Granulocyte Percent A 0.5 % (0.0-0.0); Lymphocytes Absolute Auto 1.12 K/mm3 (1.10-4.50); Lymphocytes Percent Auto 17.9 % (18.0-42.0); Mean Corpuscular HGB Conc 31.8 g/dL (32.0-36.0); Mean Corpuscular Hemoglobin 27.9 pg (27.0-31.0); Mean Corpuscular Volume 87.8 fL (78.0-102.0); Monocytes Absolute Auto 0.49 K/mm3 (0.10-0.90); Monocytes Percent Auto 7.8 % (2.0-11.0); Neutrophils Absolute Auto 4.3 K/mm3 (1.7-7.2); Neutrophils Percent Auto 69.3 % (50.0-70.0); Platelet Count Result 229 K/mm3 (150-420); Red Blood Count 4.98 M/mm3 (4.70-6.10); Red Cell Distribution Width 13.4 % (11.6-14.4); White Blood Count 6.3 K/mm3 (4.8-10.8)
[2022-01-02 11:25] LABS: Alanine Aminotransferase 27 U/L (16-63); Albumin Level 3.7 g/dL (3.4-5.0); Alkaline Phosphatase 108 U/L (46-116); Anion Gap 6 mmol/L (8-16); Aspartate Amino Transferase 13 U/L (15-37); Bilirubin,Total 0.6 mg/dL (0.00-1.00); Blood Urea Nitrogen 22 mg/dL (7-18); CRP 0.6 mg/dL (0.0-0.9); Calcium 8.6 mg/dL (8.5-10.1); Carbon Dioxide 29 mmol/L (21-32); Chloride 105 mmol/L (98-108); Estimated Glomerular Filt Rate > 60; Glucose 159 mg/dL (70-99); Osmolality Calculated 296 mOsm/kg (285-295); Potassium 4.1 mmol/L (3.5-5.1); Sodium 140 mmol/L (136-145); Total Protein 7.2 g/dL (6.4-8.2)
[2022-01-02 12:13] LABS: Erythrocyte Sedimentation Rate 7 mm/hr (0-20)
[2022-01-02 12:55] LABS: Rheumatoid Factor Screen Negative (Negative)
[2022-01-06 14:04] LABS: Anti Cyclic Citrullinated Pept <16 Units (<20)
== END 2022-01-02 10:51 | disposition home or self-care (01) ==
PROVIDERS: PCP Internal Medicine; Visit Provider Internal Medicine
DX: M25.50 Pain in unspecified joint (principal)
CPT/HCPCS: 36415; 73030; 73110; 73130; 73562; 80053; 85025; 85652; 86038; 86140; 86200; 86430

== ENCOUNTER 2022-02-26 10:01 | Outpatient (CLI) | payer MEDICARE, SELFPAY ==
[2022-02-26 10:27] LABS: Basophils Absolute Auto 0.08 K/mm3 (0.00-0.10); Basophils Percent Auto 1.1 % (0.0-1.0); Eosinophils Absolute Auto 0.24 K/mm3 (0.02-0.50); Eosinophils Percent Auto 3.4 % (1.0-6.0); Hematocrit 43.5 % (37.0-46.0); Hemoglobin 13.6 g/dL (12.4-15.3); Immature Granulocyte Absolute 0.08 K/mm3 (0.00-0.00); Immature Granulocyte Percent A 1.1 % (0.0-0.0); Lymphocytes Absolute Auto 1.32 K/mm3 (1.10-4.50); Lymphocytes Percent Auto 18.9 % (18.0-42.0); Mean Corpuscular HGB Conc 31.3 g/dL (32.0-36.0); Mean Corpuscular Hemoglobin 27.4 pg (27.0-31.0); Mean Corpuscular Volume 87.5 fL (78.0-102.0); Mean Platelet Volume 9.7 fl (8.7-11.0); Monocytes Percent Auto 8.6 % (2.0-11.0); Neutrophils Absolute Auto 4.7 K/mm3 (1.7-7.2); Neutrophils Percent Auto 66.9 % (50.0-70.0); Platelet Count Result 198 K/mm3 (150-420); Red Blood Count 4.97 M/mm3 (4.70-6.10); Red Cell Distribution Width 14.1 % (11.6-14.4)
[2022-02-26 11:07] LABS: Alanine Aminotransferase 33 U/L (16-63); Albumin Level 3.6 g/dL (3.4-5.0); Alkaline Phosphatase 96 U/L (46-116); Anion Gap 7 mmol/L (8-16); Aspartate Amino Transferase 17 U/L (15-37); Bilirubin,Total 0.3 mg/dL (0.00-1.00); Blood Urea Nitrogen 16 mg/dL (7-18); CRP 0.5 mg/dL (0.0-0.9); Calcium 8.1 mg/dL (8.5-10.1); Carbon Dioxide 30 mmol/L (21-32); Chloride 105 mmol/L (98-108); Estimated Glomerular Filt Rate > 60; Glucose 124 mg/dL (70-99); Osmolality Calculated 296 mOsm/kg (285-295); Potassium 4.5 mmol/L (3.5-5.1); Sodium 142 mmol/L (136-145); Total Protein 6.6 g/dL (6.4-8.2)
[2022-02-26 11:23] LABS: Erythrocyte Sedimentation Rate 8 mm/hr (0-20)
== END 2022-02-26 10:02 | disposition home or self-care (01) ==
LOC: CHSLAB 10:05
PROVIDERS: PCP Internal Medicine
DX: M25.50 Pain in unspecified joint (principal)
CPT/HCPCS: 36415; 80053; 85025; 85652; 86140

== ENCOUNTER → 2022-04-03 15:06 | Outpatient (CLI) | payer MEDICARE, SELFPAY ==
--- NOTE | ~2022-04-03 | MR_ITS ---
MRI of the left shoulder Technique: Axial proton-density fat-sat images, coronal proton density fat-sat and T2 fat-sat images, and sagittal T1-weighted and T2 fat-sat images were acquired. Clinical History: Pain Findings: There is severe AC joint degenerative change, with [id number] subacromial spur prese nt. Coracoclavicular, coracoacromial, and coracohumeral ligaments are intact. There is advanced supraspinatus and infraspinatus tendinosis. Probable linear low-grade interstitial tear at the infraspinatus myotendinous junction region. No partial or full-thickness supraspinatus te ar identified. Subscapularis tendon is intact, with mild to moderate tendinosis. Tendon of the long h ead of the biceps is intact. There is degenerative attenuation and mild fraying of the labrum, without discrete, detached labral t ear. There is diffuse grade IV chondromalacia of the glenoid. There is extensive moderate to high-grade ch ondromalacia of the humeral head. Large inferomedial humeral head osteophyte present. Inferior glenoh umeral ligament is intact. Small glenohumeral joint effusion is present. Probable small intra-articul ar loose bodies are present within the fluid distended subscapularis recess of the joint. There is a large area of enthesopathic/cystic change at the greater tuberosity of the humerus. No muscle atrophy or edema identified. Impression: Advanced osteoarthritis of the glenohumeral joint, with small intra-articular loose bodies in the flu id distended subscapularis recess. Advanced rotator cuff tendinosis. Probable linear low-grade interstitial tear at the infraspinatus my otendinous junction. Degenerative attenuation of the labrum without discrete, detached labral tear. Advanced AC joint degenerative change. Reviewed, dictated and finalized at location . INIST MATE Impression: Advanced osteoarthritis of the glenohumeral joint, with small intra-articular l oose bodies in the fluid distended subscapularis recess. Advanced rotator cuff tendinosis. Probable linear low-grade interstitial tear a t the infraspinatus myotendinous junction. Degenerative attenuation of the labrum without discrete, detached labral tear. Advanced AC joint degenerative change.
--- NOTE | ~2022-04-03 | MR_ITS ---
MRI of the right shoulder Technique: Axial proton-density fat-sat images, coronal proton density fat-sat and T2 fat-sat images, and sagittal T1-weighted and T2 fat-sat images were acquired. Clinical History: Pain Findings: There is moderate AC joint degenerative change, with [id number] subacromial spur pre sent. Coracoclavicular, coracoacromial, and coracohumeral ligaments appear intact. There is a focal low-grade articular surface partial tear at the distal infraspinatus insertion anter iorly, measuring 7 mm in length. There is additional low-grade probable interstitial tear at the infr aspinatus tendon at the myotendinous junction region. There is advanced supraspinatus and infraspinat us tendinosis. No partial or full-thickness tear of the supraspinatus tendon identified. There is moderate to advanced subscapularis tendinosis without definite tear. Tendon of long head of the biceps is intact. There is probable extensive degenerative labral tearing, especially involving the superior labrum. There is extensive grade IV chondromalacia of the glenoid. Moderate to large inferomedial humeral hea d osteophyte present. Small glenohumeral joint effusion present. No fluid distention of the subacromi al/subdeltoid bursa. Inferior glenohumeral ligament is intact. No muscle atrophy or edema present. Th ere are several loose bodies in the subscapularis recess of the joint. Impression: 7 mm focal low-grade articular surface partial tear at the distal infraspinatus tendon insertion. Add itional low-grade interstitial tear at the infraspinatus myotendinous junction region. Diffuse moderate to severe rotator cuff tendinosis. Degenerative tearing of the labrum, especially the superior aspect. Moderate to severe glenohumeral joint degenerative change, as detailed above, with associated loose b odies in the subscapularis recess. Moderate AC joint degenerative change. Reviewed, dictated and finalized at [facility]. 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 Additional low-grade interstitial tear at the infraspinatus myotendinous junction region. Diffuse moderate to severe rotator cuff tendinosis. Degenerative tearing of the labrum, especially the superior aspect. Moderate to severe glenohumeral joint degenerative change, as detailed above, w ith associated loose bodies in the subscapularis recess. Moderate AC joint degenerative change.
== END ==
PROVIDERS: PCP Internal Medicine
DX: M19.012 Primary osteoarthritis, left shoulder (principal); M19.011 Primary osteoarthritis, right shoulder; M75.102 Unspecified rotator cuff tear or rupture of left shoulder, not specified as traumatic; M75.101 Unspecified rotator cuff tear or rupture of right shoulder, not specified as traumatic; S43.431A Superior glenoid labrum lesion of right shoulder, initial encounter; S46.811A Strain of other muscles, fascia and tendons at shoulder and upper arm level, right arm, initial encounter; X58.XXXA Exposure to other specified factors, initial encounter
CPT/HCPCS: 73221

== ENCOUNTER 2022-11-25 08:45 | Outpatient (CLI) | payer MEDICARE, SELFPAY ==
--- NOTE | ~2022-11-25 | CT_ITS ---
EXAMINATION:CT lung screening DATE: 11/25/2022 09:03 INDICATION: Personal history of tobacco dependence. Smoker who quit 3 years ago with 72 pack year his tory. TECHNIQUE: Computed tomography (CT) of the chest was performed without intravenous contrast. Automate d exposure control and iterative reconstruction technique were employed. The dose-length product (DLP ) was 394.59 mGy-cm. COMPARISON: Chest CT 09/28/2021 FINDINGS: There is mild emphysema. There is mild atelectasis bilaterally. A calcified right lung nodu le and calcified right hilar and mediastinal lymph nodes are consistent with old granulomatous diseas e. There is a stable 6 mm nodule in left lower lobe. No pleural effusion. The heart size is normal. T here are coronary artery calcifications. No pericardial effusion. There is bilateral gynecomastia. Ca lcifications in the spleen are consistent with old granulomatous disease. There is diffuse hepatic st eatosis. There is moderate thoracic spondylosis. IMPRESSION: 1. Lung-RADS category 2: Benign appearance or behavior. Continue annual screening with noncontrast lo w-dose chest CT in 12 months. Reviewed, dictated and finalized at location A. IMPRESSION: 1. Lung-RADS category 2: Benign appearance or behavior. Continue annual screeni ng with noncontrast low-dose chest CT in 12 months.
== END 2022-11-25 08:46 | disposition home or self-care (01) ==
LOC: CHSIMG 08:46
PROVIDERS: PCP Internal Medicine; Visit Provider Internal Medicine
DX: Z12.2 Encounter for screening for malignant neoplasm of respiratory organs (principal); Z87.891 Personal history of nicotine dependence
CPT/HCPCS: 71271

== ENCOUNTER 2022-12-10 08:15 | Outpatient (CLI) | payer MEDICARE, SELFPAY ==
[2022-12-10 08:30] LABS: Basophils Absolute Auto 0.09 K/mm3 (0.00-0.10); Basophils Percent Auto 1.3 % (0.0-1.0); Eosinophils Absolute Auto 0.26 K/mm3 (0.02-0.50); Eosinophils Percent Auto 3.9 % (1.0-6.0); Hematocrit 43.2 % (37.0-46.0); Hemoglobin 14.1 g/dL (12.4-15.3); Immature Granulocyte Absolute 0.05 K/mm3 (0.00-0.00); Immature Granulocyte Percent A 0.7 % (0.0-0.0); Lymphocytes Absolute Auto 1.26 K/mm3 (1.10-4.50); Lymphocytes Percent Auto 18.8 % (18.0-42.0); Mean Corpuscular HGB Conc 32.6 g/dL (32.0-36.0); Mean Corpuscular Volume 91.9 fL (78.0-102.0); Mean Platelet Volume 9.6 fl (8.7-11.0); Monocytes Absolute Auto 0.47 K/mm3 (0.10-0.90); Neutrophils Absolute Auto 4.6 K/mm3 (1.7-7.2); Neutrophils Percent Auto 68.3 % (50.0-70.0); Platelet Count Result 224 K/mm3 (150-420); Red Cell Distribution Width 13.8 % (11.6-14.4); White Blood Count 6.7 K/mm3 (4.8-10.8)
[2022-12-10 08:57] LABS: Alanine Aminotransferase 24 U/L (16-63); Albumin Level 3.7 g/dL (3.4-5.0); Alkaline Phosphatase 118 U/L (46-116); Anion Gap 9 mmol/L (8-16); Aspartate Amino Transferase 12 U/L (15-37); Bilirubin,Total 0.6 mg/dL (0.00-1.00); Blood Urea Nitrogen 18 mg/dL (7-18); CRP 0.6 mg/dL (0.0-0.9); Calcium 8.9 mg/dL (8.5-10.1); Carbon Dioxide 28 mmol/L (21-32); Chloride 101 mmol/L (98-108); Estimated Glomerular Filt Rate > 60; Glucose 142 mg/dL (70-99); Osmolality Calculated 289 mOsm/kg (285-295); Potassium 4.5 mmol/L (3.5-5.1); Sodium 138 mmol/L (136-145); Total Protein 6.5 g/dL (6.4-8.2)
[2022-12-10 09:31] LABS: Erythrocyte Sedimentation Rate 10 mm/hr (0-20)
== END 2022-12-10 08:16 | disposition home or self-care (01) ==
LOC: CHSLAB 08:18
PROVIDERS: PCP Internal Medicine; Visit Provider Internal Medicine Rheumatology
DX: L40.59 Other psoriatic arthropathy (principal)
CPT/HCPCS: 36415; 80053; 85025; 85652; 86140

== ENCOUNTER 2023-02-03 09:07 | Outpatient (RCR) | payer MEDICARE, SELFPAY ==
--- NOTE | 2023-02-03 09:10 | PTOPEVAL1 ---
Assessment and note entered by Daniel Dean Evaluation Information Assessment Status Evaluation Diagnosis s/p total shoulder arthroplasty, left shoulder OA Onset 12/18/22 Subjective Information Pt. reports that he underwent shoulder replacement on 12/18/22. He describes pain around the area of the biceps muscle. He reports that he has been doing pulleys at home. He reports that he still does not have the strength to lift the left arm overhead on his own. He states that his mobility is already improved compared to prior to surgery. He reports that his goal is to improve his strength in the left shoulder to be able to lift the arm overhead. Reported Pain Level Pain Score 1: Self Report Assessment PT Clinical Summary Pt. is a 67 year old male who enters the clinic 7 weeks post left shoulder arthroplasty. he presents with impaired strength, impaired ROM and pain on this date. Continued skilled PT is indicated in order to improve left u.e. function to allow for pt. to achieve his goal of overhead reaching. Plan of Care Interventions Electrical Stimulation,Hot Pack/Cold Pack,Manual Therapy,Neuro Re-education,Patient/Caregiver Educati,Therapeutic Activities,Therapeutic Exercise PT Services Indicated Yes Treatment Frequency and 2x/week x 10 visits Duration These treatments will address the objective and functional deficits as defined above. The patient will be advanced safely and appropriately in order for the patient to progress towards his/her prior level of function. Additional exercises will be introduced and as well as a comprehensive home exercise program upon discharge, if needed, ?to ensure carryover of functional gains achieved in the clinic. This treatment plan has been reviewed and agreement upon by the patient.
--- NOTE | 2023-02-03 09:12 | OPREHPOC ---
Outpatient Therapy Plan of Care This is a Multidisciplinary Plan of Care that may contain components documented by all disciplines (PT, OT, and ST.) PT Problem 1 PT Problem #1 Knowledge Deficit PT Goal 1 Goal Pt. will be independent with a HEP addressing shoulder ROM uatsdin Target Visit 2 PT Problem 2 PT Problem #2 Pain PT Goal 1 Goal Pt. will report pain levels at 1/10 at worst with all overhead activity. Target Visit 10 PT Problem 3 PT Problem #3 Impaired Range of Motion PT Goal 1 Goal Pt. will achieve 145 degrees active shoulder flexion against gravity on the left to improve overhead function. Target Visit 10 PT Problem 4 PT Problem #4 Impaired Strength PT Goal 1 Goal Pt. will present with ability to lift 3# object overhead in repitition with the left u.e. for 10 reps. Target Visit 10
--- NOTE | 2023-03-07 14:00 | OPREHPOC ---
Outpatient Therapy Plan of Care This is a Multidisciplinary Plan of Care that may contain components documented by all disciplines (PT, OT, and ST.) PT Problem 1 PT Problem #1 Knowledge Deficit PT Goal 1 Goal Pt. will be independent with a HEP addressing shoulder ROM orthodoxy Target Visit 2 Progress Met PT Problem 2 PT Problem #2 Pain PT Goal 1 Goal Pt. will report pain levels at 1/10 at worst with all overhead activity. Target Visit 18 Comment continue PT Problem 3 PT Problem #3 Impaired Range of Motion PT Goal 1 Goal Pt. will achieve 145 degrees active shoulder flexion against gravity on the left to improve overhead function. Target Visit 18 Comment progressing PT Problem 4 PT Problem #4 Impaired Strength PT Goal 1 Goal Pt. will present with ability to lift 3# object overhead in repitition with the left u.e. for 10 reps. Target Visit 18 Comment continue
--- NOTE | 2023-03-07 14:01 | PTOPREEVAL ---
Assessment and note entered by Alexandra Frye DPT Evaluation Information Assessment Status Re-evaluation Diagnosis s/p total shoulder arthroplasty, left shoulder OA Onset 12/18/22 Subjective Information Patient reports shoulder is improving. He reports reaching up and out to the side continue to cause him difficulty. He reports no difficulty with dressing or sleeping. RTMD 03/13/23 Reported Pain Level Pain Score 0: Self Report Assessment PT Clinical Summary Mr. Kirby has been seen for 10 visits of skilled PT. He is progressing appropriately at this time. He demonstrates improve ROM and strength of the L shoulder but continues to demonstrate deficits in full strength and ROM and ability to reach into cabinets for house hold tasks. She would benefit from continued skilled PT to address impairments and return to PLOF. Plan of Care Interventions Electrical Stimulation,Hot Pack/Cold Pack,Manual Therapy,Neuro Re-education,Patient/Caregiver Educati,Therapeutic Activities,Therapeutic Exercise PT Services Indicated Yes Treatment Frequency and continue 2x weekly for 8 visits Duration These treatments will address the objective and functional deficits as defined above. The patient will be advanced safely and appropriately in order for the patient to progress towards his/her prior level of function. Additional exercises will be introduced and as well as a comprehensive home exercise program upon discharge, if needed, ?to ensure carryover of functional gains achieved in the clinic. This treatment plan has been reviewed and agreement upon by the patient.
--- NOTE | 2023-03-24 09:51 | PCPTNOTE ---
Patient cancelled session due to weather conditions.
--- NOTE | 2023-04-04 11:46 | OPREHPOC ---
Outpatient Therapy Plan of Care This is a Multidisciplinary Plan of Care that may contain components documented by all disciplines (PT, OT, and ST.) PT Problem 1 PT Problem #1 Knowledge Deficit PT Goal 1 Goal Pt. will be independent with a HEP addressing shoulder ROM tenriism Target Visit 2 Progress Met PT Problem 2 PT Problem #2 Pain PT Goal 1 Goal Pt. will report pain levels at 1/10 at worst with all overhead activity. Target Visit 18 Progress Met Comment continue PT Problem 3 PT Problem #3 Impaired Range of Motion PT Goal 1 Goal Pt. will achieve 145 degrees active shoulder flexion against gravity on the left to improve overhead function. Target Visit 18 Progress Not Met Comment progressing PT Problem 4 PT Problem #4 Impaired Strength PT Goal 1 Goal Pt. will present with ability to lift 3# object overhead in repitition with the left u.e. for 10 reps. Target Visit 18 Progress Met Comment continue
--- NOTE | 2023-04-04 11:46 | PTOPDC ---
Assessment and note entered by JT File, PT Evaluation Information Assessment Status Discharge Diagnosis s/p total shoulder arthroplasty, left shoulder OA Onset 12/18/22 Subjective Information patient reports he is doing well. he reports he has no pain in the L shoulder. he reports he does still get fatigue with exercises/activities, but has been compliant with his HEP at home. he reports the MD has released him. he reports he would like to stop therapy today, and trial exercises only on his own at home. Reported Pain Level Pain Score 0: Self Report Assessment PT Clinical Summary mr. amaral presents to skilled PT for his 18th skilled therapy visit. he presents today with improved strength and subjective functional reports. he lacks full achievement of flexion goal , but is only 5 degrees away. he has met pain goal , strength goal, and hep goal. he continues to have tightness in the L shoulder with passive ER. he was educated to continue ER and other rom/ strengthening exercises at home. he will DC skilled PT this date to an independent HEP. Plan of Care PT Services Indicated Yes
== END 2023-04-04 14:17 | disposition home or self-care (01) ==
LOC: CHSPT 09:07
DX: Z47.1 Aftercare following joint replacement surgery (principal); M19.012 Primary osteoarthritis, left shoulder; Z96.612 Presence of left artificial shoulder joint
CPT/HCPCS: 97110; 97112; 97150; 97161; 97530

== ENCOUNTER 2023-04-25 09:56 | Outpatient (CLI) | payer MEDICARE, SELFPAY ==
[2023-04-25 10:58] LABS: Basophils Absolute Auto 0.05 K/mm3 (0.00-0.10); Basophils Percent Auto 0.9 % (0.0-1.0); Eosinophils Absolute Auto 0.14 K/mm3 (0.02-0.50); Eosinophils Percent Auto 2.5 % (1.0-6.0); Hematocrit 42.9 % (37.0-46.0); Hemoglobin 13.4 g/dL (12.4-15.3); Immature Granulocyte Absolute 0.03 K/mm3 (0.00-0.00); Immature Granulocyte Percent A 0.5 % (0.0-0.0); Lymphocytes Absolute Auto 0.55 K/mm3 (1.10-4.50); Lymphocytes Percent Auto 9.8 % (18.0-42.0); Mean Corpuscular HGB Conc 31.2 g/dL (32.0-36.0); Mean Corpuscular Volume 89.7 fL (78.0-102.0); Mean Platelet Volume 9.9 fl (8.7-11.0); Monocytes Absolute Auto 0.45 K/mm3 (0.10-0.90); Neutrophils Absolute Auto 4.4 K/mm3 (1.7-7.2); Neutrophils Percent Auto 78.3 % (50.0-70.0); Platelet Count Result 208 K/mm3 (150-420); Red Blood Count 4.78 M/mm3 (4.70-6.10); Red Cell Distribution Width 14.8 % (11.6-14.4); White Blood Count 5.6 K/mm3 (4.8-10.8)
[2023-04-25 11:16] LABS: Alanine Aminotransferase 40 U/L (16-63); Albumin Level 3.6 g/dL (3.4-5.0); Alkaline Phosphatase 126 U/L (46-116); Anion Gap 10 mmol/L (8-16); Aspartate Amino Transferase 18 U/L (15-37); Bilirubin,Total 0.6 mg/dL (0.00-1.00); Blood Urea Nitrogen 19 mg/dL (7-18); CRP 1.1 mg/dL (0.0-0.9); Calcium 8.5 mg/dL (8.5-10.1); Carbon Dioxide 29 mmol/L (21-32); Chloride 100 mmol/L (98-108); Estimated Glomerular Filt Rate > 60; Glucose 203 mg/dL (70-99); Osmolality Calculated 296 mOsm/kg (285-295); Potassium 4.2 mmol/L (3.5-5.1); Sodium 139 mmol/L (136-145); Total Protein 6.5 g/dL (6.4-8.2)
[2023-04-25 12:03] LABS: Erythrocyte Sedimentation Rate 7 mm/hr (0-20)
[2023-04-25 12:31] LABS: Cholesterol 155 mg/dL (0-200); HDL Direct 42 mg/dL (40-60); LDL Cholesterol Calculated 80 mg/dL (<130); Prostate Specific Antigen 1.6 ng/mL (< OR = 4.0); Triglycerides 164 mg/dL (0-150)
[2023-04-25 13:16] LABS: Hemoglobin A1C 6.8 % (<5.7)
== END 2023-04-25 09:57 | disposition home or self-care (01) ==
PROVIDERS: PCP Internal Medicine; Visit Provider Internal Medicine Rheumatology
DX: E11.65 Type 2 diabetes mellitus with hyperglycemia (principal); E78.5 Hyperlipidemia, unspecified; Z12.5 Encounter for screening for malignant neoplasm of prostate; Z79.899 Other long term (current) drug therapy
CPT/HCPCS: 36415; 80053; 80061; 83036; 84153; 85025; 85652; 86140; G0103

== ENCOUNTER 2023-09-04 13:55 | Emergency (ER) | payer MEDICARE, SELFPAY ==
--- NOTE | ~2023-09-04 | XR_ITS ---
2 VIEWS STERNUM Ordering provider: Daniel Oliver MD History: . FALL/HIT MID CHEST . Comparison: None. FINDINGS: BONES: No sternal fracture. JOINTS: Sternoclavicular joints is well maintained without dislocation. SOFT TISSUES: Normal. IMPRESSION: No acute osseous abnormality. Reviewed, dictated and finalized at location A.
--- NOTE | ~2023-09-04 | XR_ITS ---
XR_RIBSBI_CR Ordering provider: Daniel Oliver MD History: . FALL/HIT MID CHEST . Comparison: None. FINDINGS: BONES: No acute rib fracture. MEDIASTINUM: The cardiac silhouette is not enlarged. LUNGS: No effusions or infiltrates. No pneumothorax. SOFT TISSUES: Normal. Left shoulder arthroplasty. Right shoulder osteoarthritic changes. Degenerative changes of the spine. IMPRESSION: No acute osseous abnormality of the bilateral ribs. Reviewed, dictated and finalized at location A.
[2023-09-04 13:56] VITALS: BP 121/78; PULSE 60; RESP 18; TEMP 36.8; O2SAT 96
[2023-09-04 14:03] VITALS: BP 121/78; PULSE 60; RESP 18; TEMP 36.8; O2SAT 96
[2023-09-04] MEDS: TETANUS,DIPHTHERIA,AC PERTUSSIS ADULT 0.5 ML (ADACEL) IM (14:32)
--- NOTE | 2023-09-04 14:35 | PC.NURSE ---
PT HAS RETURNED FROM CT, DAUGHTER IS AT BEDSIDE. WOUNDS WERE CLEANED. WILL CONTINUE TO MONITOR.
--- NOTE | 2023-09-04 14:42 | ED.FALL ---
HPI - Fall General Chief Complaint: Fall Stated Complaint: fall injury Time Seen by Provider: 09/04/23 14:00 Source: patient Mode of arrival: ambulatory Limitations: no limitations History of Present Illness HPI Narrative: This is 68-year-old male that had a fall while he was moving around bricks and wheel barrel and fell into the wheelbarrow striking the the bridge of his nose causing a avulsion injury also causing pain and discomfort in his bilateral lower ribs and sternal area. Pain is not significant and patient comfortable with rest but does have increased pain levels with deep inspiration and movement. She has no bruising with palpation no shortness of breath. complaint: fall Onset (ago): hour(s) Fall from: standing Fall witnessed: yes, by family Related Data Home Medications Medication Instructions Recorded Confirmed atorvastatin 20 mg tablet 20 mg PO DAILY 01/23/20 09/04/23 folic acid 1 mg tablet 1 mg PO DAILY 09/04/23 09/04/23 losartan 50 mg tablet 50 mg PO DAILY 09/04/23 09/04/23 metformin 500 mg tablet,extended 2,000 mg PO DAILY 09/04/23 09/04/23 release 24 hr methotrexate sodium 2.5 mg tablet 15 mg PO WEEKLY 09/04/23 09/04/23 Allergies Allergy/AdvReac Type Severity Reaction Status Date / Time No Known Allergies Allergy Verified 09/04/23 14:01 Review of Systems Review of Systems: All systems reviewed & are unremarkable except as noted in HPI and below PMFSH Past Medical History Medical History Arthritis Diverticular disease Hypercholesterolemia Surgical History Surgical History Hx of colonoscopy Social History Social History Smoking status: Never smoker Second hand tobacco smoke exposure: No Alcohol intake: never Substance use: never Gender identity (if verbalized by the patient): Male Spiritual care concerns: No Exam Const: General: healthy appearing Nutritional Appearance: well nourished Orientation/consciousness: patient oriented x3 Limitations: no limitations HENMT: Other: Small avulsion injury just above the bridge of his nose. Neck: Neck: normal visual inspection, no lymphadenopathy and no meningeal signs Chest: Chest palpation & inspection: normal inspection of the chest and tenderness Resp: Effort & Inspection: normal respiratory effort Auscultation: clear to auscultation bilaterally Cardio: Rate: regular rate Rhythm: regular rhythm GI: GI Palp: Yes Soft to palpation Auscultation: normal bowel sounds Skin: Wounds: wounds noted Extrem: Other: Tenderness in the lower sternal area and bilateral rib area with palpation Course Course Emergency Course: patient declined pain medicine, had x-rays performed of bilateral ribs and sternum which showed no acute fractures. Vital Signs Vital signs: Vital Signs Oxygen Delivery Room Air 09/04/23 13:55 Temperature 36.8 C 09/04/23 14:03 Pulse Rate 60 09/04/23 14:03 Respiratory Rate 18 09/04/23 14:03 Blood Pressure 121/78 09/04/23 14:03 Pulse Oximetry 96 09/04/23 14:03 Oxygen Delivery Room Air 09/04/23 14:03 Critical Care Time Critical Care Time Critical Care Time: No Discharge Plan Discharge Clinical Impression: Rib pain, Abrasion Patient Disposition: Home, Self-Care Condition: Stable Instructions: Antibiotic Form, Abrasion (ED), Muscle Strain (ED) Additional Instructions: advised to take Tylenol or Motrin for pain and discomfort and follow up with primary if symptoms persist or worsen. Prescriptions: No Action losartan 50 mg tablet 50 mg PO DAILY methotrexate sodium 2.5 mg tablet 15 mg PO WEEKLY folic acid 1 mg tablet 1 mg PO DAILY metformin 500 mg tablet extended release 24 hr 2,000 mg PO DAILY atorvastatin 20 mg tablet 20 mg
== END 2023-09-04 14:50 | disposition home or self-care (01) ==
PROVIDERS: Emergency Provider Emergency Medicine; PCP Internal Medicine
DX: S00.31XA Abrasion of nose, initial encounter (principal); R07.81 Pleurodynia; Z23 Encounter for immunization; Z79.84 Long term (current) use of oral hypoglycemic drugs; Z79.899 Other long term (current) drug therapy; W18.39XA Other fall on same level, initial encounter
CPT/HCPCS: 71110; 71120; 90471; 90715; 99283

== ENCOUNTER 2023-11-28 08:00 | Outpatient (CLI) | payer MEDICARE, SELFPAY ==
[2023-11-28 08:27] LABS: Basophils Absolute Auto 0.06 K/mm3 (0.00-0.10); Basophils Percent Auto 0.9 % (0.0-1.0); Eosinophils Absolute Auto 0.23 K/mm3 (0.02-0.50); Eosinophils Percent Auto 3.6 % (1.0-6.0); Hematocrit 43.3 % (37.0-46.0); Hemoglobin 13.6 g/dL (12.4-15.3); Immature Granulocyte Absolute 0.02 K/mm3 (0.00-0.00); Immature Granulocyte Percent A 0.3 % (0.0-0.0); Lymphocytes Absolute Auto 0.95 K/mm3 (1.10-4.50); Mean Corpuscular HGB Conc 31.4 g/dL (32-36); Mean Corpuscular Hemoglobin 29.4 pg (27.0-31.0); Mean Corpuscular Volume 93.5 fL (78.0-102.0); Mean Platelet Volume 10.1 fl (8.7-11.0); Monocytes Percent Auto 7.9 % (2.0-11.0); Neutrophils Absolute Auto 4.57 K/mm3 (1.70-7.20); Neutrophils Percent Auto 72.3 % (50.0-70.0); Platelet Count Result 245 K/mm3 (150-420); Red Blood Count 4.63 M/mm3 (4.70-6.10); Red Cell Distribution Width 14.9 % (11.6-14.4); White Blood Count 6.3 K/mm3 (4.8-10.8)
[2023-11-28 08:28] LABS: Add Urine Microscopic? NO; Appearance Urine Clear (Clear); Bilirubin Urine Negative (Negative); Blood Urine Negative (Negative); Color Urine Light Yellow (Yellow); Glucose Urine UA Negative (Negative); Ketones Urine Negative (Negative); Leukocyte Esterase Ur Negative (Negative); Nitrate Urine Negative (Negative); Protein Urine Negative (Negative); Urobilinogen Urine 0.2 mg/dL (0.2-1.0)
[2023-11-28 08:42] LABS: Hemoglobin A1C 6.8 % (<5.7)
[2023-11-28 09:34] LABS: Erythrocyte Sedimentation Rate 10 mm/hr (0-20)
[2023-11-28 10:21] LABS: Alanine Aminotransferase 23 U/L (16-63); Albumin Level 3.6 g/dL (3.4-5.0); Alkaline Phosphatase 112 U/L (46-116); Anion Gap 7 mmol/L (4-12); Aspartate Amino Transferase 15 U/L (15-37); Bilirubin,Total 0.8 mg/dL (0.00-1.00); Blood Urea Nitrogen 16 mg/dL (7-18); CRP 0.7 mg/dL (0.0-0.9); Calcium 8.6 mg/dL (8.5-10.1); Carbon Dioxide 31 mmol/L (21-32); Chloride 105 mmol/L (98-108); Cholesterol 129 mg/dL (0-200); Creatine Kinase 218 U/L (39-308); Estimated Glomerular Filt Rate 59; Glucose 125 mg/dL (70-99); HDL Direct 35 mg/dL (40-60); LDL Cholesterol Calculated 72 mg/dL (<130); Osmolality Calculated 298 mOsm/kg (285-295); Potassium 4.8 mmol/L (3.5-5.1); Prostate Specific Antigen 1.9 ng/mL (< OR = 4.0); Sodium 143 mmol/L (136-145); Total Protein 6.7 g/dL (6.4-8.2); Triglycerides 108 mg/dL (0-150)
[2023-12-04 07:35] LABS: Testosterone Free 15.3 pg/mL (35.0-155.0); Testosterone Total 73 ng/dL (250-1100)
[2023-12-05 23:50] LABS: Estradiol, Ultrasensitive 24 pg/mL (< OR = 29)
== END 2023-11-28 08:01 | disposition home or self-care (01) ==
PROVIDERS: PCP Internal Medicine; Visit Provider Urology
DX: Z79.899 Other long term (current) drug therapy (principal); Z12.5 Encounter for screening for malignant neoplasm of prostate
CPT/HCPCS: 36415; 80053; 80061; 81003; 82550; 82670; 83036; 84153; 84402; 84403; 85025; 85652; 86140; G0103

== ENCOUNTER 2023-12-09 10:33 | Outpatient (CLI) | payer MEDICARE, SELFPAY ==
--- NOTE | ~2023-12-09 | XR_ITS ---
EXAMINATION: [id number]_[id number]_CR DATE: 12/09/2023 10:52 INDICATION: Chronic neck pain. TECHNIQUE: 4 views of cervical spine on 5 radiographs were obtained. COMPARISON: None. FINDINGS: There is kyphosis of cervical spine. There is 2 mm anterolisthesis of C4 on C5. Vertebral b marvin heights are normal. There is mildly decreased disc height at C4-C5, moderately decreased disc hei ght at C5-C6, and severely decreased disc height at C6-C7. There is multilevel severe facet joint ost eoarthritis. There is mild central canal stenosis at C4-C5, C5-C6, and C6-C7. No prevertebral soft ti ssue swelling. IMPRESSION: 1. Severe cervical spondylosis. Reviewed, dictated and finalized at location A.
== END 2023-12-09 10:34 | disposition home or self-care (01) ==
PROVIDERS: PCP Internal Medicine; Visit Provider Internal Medicine
DX: M54.2 Cervicalgia (principal); M43.02 Spondylolysis, cervical region
CPT/HCPCS: 72040

== ENCOUNTER 2023-12-15 10:04 | Outpatient (CLI) | payer MEDICARE, SELFPAY ==
--- NOTE | ~2023-12-15 | CT_ITS ---
CT Scan of the Chest without Contrast: Clinical Indication: Lung cancer screening, nicotine dependence Technique: Contiguous sections were acquired throughout the chest without intravenous contrast. Dose reduction technique was used on this scan by utilizing automated exposure control and iterative recon struction technique. The dose-length product (DLP) was 370.78 mGy-cm. COMPARISON: 11/25/2022 Findings: There is no evidence of any significant mediastinal, hilar or axillary lymphadenopathy. Coronary lexie ry calcium cages are present. Calcified right hilar lymph nodes present.. There is no evidence of pleural or pericardial effusion. Stable 5 mm pleural-based nodule superior segment left lower lobe. Linear scarring or atelectasis rig ht lower lobe is unchanged. Images through the upper abdomen reveal no abnormalities. Impression: Lung RADS 2: Benign appearance. 12 month follow-up screening CT advised. Reviewed, dictated and finalized at [facility]. Impression: Lung RADS 2: Benign appearance. 12 month follow-up screening CT advised.
== END 2023-12-15 10:05 | disposition home or self-care (01) ==
LOC: CHSIMG 10:06
PROVIDERS: PCP Internal Medicine; Visit Provider Internal Medicine
DX: Z12.2 Encounter for screening for malignant neoplasm of respiratory organs (principal); Z87.891 Personal history of nicotine dependence
CPT/HCPCS: 71271

== ENCOUNTER 2023-12-25 07:13 | Outpatient (CLI) | payer MEDICARE, SELFPAY ==
--- NOTE | ~2023-12-25 | MR_ITS ---
EXAMINATION: MR cervical spine wo con DATE: 12/25/2023 07:56 INDICATION: Neck pain. TECHNIQUE: Magnetic resonance imaging (MRI) of the cervical spine was performed without intravenous c ontrast. COMPARISON: Cervical spine MRI 08/07/2017 FINDINGS: There is 6 degrees dextrocurvature of cervicothoracic spine. There is kyphosis of cervical spine. There is 2 mm anterolisthesis of C4 on C5. Vertebral body heights are normal. There is mildly decreased disc height at C4-C5 and C5-C6 and moderately decreased disc height at C6-C7. The spinal co rd signal intensity is normal. The following disc levels are specifically discussed: C2-C3: The disc does not extend beyond the endplate margin. There is mild bilateral uncovertebral ashley nt osteoarthritis. There is severe bilateral facet joint osteoarthritis. There is mild left neural fo raminal stenosis. There is no central canal stenosis. C3-C4: The disc does not extend beyond the endplate margin. There is moderate right and mild left unc overtebral joint osteoarthritis. There is severe bilateral facet joint osteoarthritis. There is moder ate right and mild left neural foraminal stenosis. There is no central canal stenosis. C4-C5: There is a central protrusion. There is mild bilateral uncovertebral joint osteoarthritis. The re is severe bilateral facet joint osteoarthritis. There is mild bilateral neural foraminal stenosis. There is mild central canal stenosis with ventral indentation of the spinal cord. C5-C6: The disc is bulging. There is moderate and severe left uncovertebral joint osteoarthritis. The re is moderate bilateral facet joint osteoarthritis. There is moderate left neural foraminal stenosis . There is mild central canal stenosis with ventral indentation of the spinal cord. C6-C7: The disc is bulging. There is severe bilateral uncovertebral joint osteoarthritis. There is mo derate bilateral facet joint osteoarthritis. There is mild bilateral neural foraminal stenosis. There is mild central canal stenosis. C7-T1: The disc does not extend beyond the endplate margin. There is no uncovertebral joint osteoarth ritis. There is severe bilateral facet joint osteoarthritis. There is mild bilateral neural foraminal stenosis. There is no central canal stenosis. IMPRESSION: 1. Moderate cervical spondylosis, stable from 08/07/2017. Reviewed, dictated and finalized at location A.
== END 2023-12-25 07:14 | disposition home or self-care (01) ==
LOC: MICIMG 07:15
PROVIDERS: PCP Internal Medicine; Visit Provider Internal Medicine
DX: M47.812 Spondylosis without myelopathy or radiculopathy, cervical region (principal)
CPT/HCPCS: 72141

== ENCOUNTER 2024-01-02 09:54 | Outpatient (CLI) | payer MEDICARE, SELFPAY ==
[2024-01-02 10:08] LABS: Basophils Absolute Auto 0.06 K/mm3 (0.00-0.10); Basophils Percent Auto 0.9 % (0.0-1.0); Eosinophils Absolute Auto 0.26 K/mm3 (0.02-0.50); Eosinophils Percent Auto 3.7 % (1.0-6.0); Hematocrit 44.6 % (37.0-46.0); Hemoglobin 14.2 g/dL (12.4-15.3); Immature Granulocyte Absolute 0.03 K/mm3 (0.00-0.00); Immature Granulocyte Percent A 0.4 % (0.0-0.0); Lymphocytes Percent Auto 11.5 % (18.0-42.0); Mean Corpuscular HGB Conc 31.8 g/dL (32-36); Mean Corpuscular Hemoglobin 28.9 pg (27.0-31.0); Mean Corpuscular Volume 90.8 fL (78.0-102.0); Mean Platelet Volume 10.2 fl (8.7-11.0); Monocytes Absolute Auto 0.58 K/mm3 (0.10-0.90); Monocytes Percent Auto 8.3 % (2.0-11.0); Neutrophils Absolute Auto 5.25 K/mm3 (1.70-7.20); Neutrophils Percent Auto 75.2 % (50.0-70.0); Platelet Count Result 246 K/mm3 (150-420); Red Blood Count 4.91 M/mm3 (4.70-6.10); Red Cell Distribution Width 14.2 % (11.6-14.4)
[2024-01-02 10:45] LABS: Alanine Aminotransferase 30 U/L (16-63); Albumin Level 3.4 g/dL (3.4-5.0); Alkaline Phosphatase 119 U/L (46-116); Anion Gap 9 mmol/L (4-12); Aspartate Amino Transferase 14 U/L (15-37); Bilirubin,Total 0.6 mg/dL (0.00-1.00); Blood Urea Nitrogen 18 mg/dL (7-18); CRP 6.5 mg/dL (0.0-0.9); Calcium 8.8 mg/dL (8.5-10.1); Carbon Dioxide 28 mmol/L (21-32); Chloride 104 mmol/L (98-108); Estimated Glomerular Filt Rate 60; Glucose 126 mg/dL (70-99); Osmolality Calculated 295 mOsm/kg (285-295); Potassium 4.8 mmol/L (3.5-5.1); Sodium 141 mmol/L (136-145); Total Protein 6.8 g/dL (6.4-8.2)
[2024-01-02 11:11] LABS: Erythrocyte Sedimentation Rate 20 mm/hr (0-20)
== END 2024-01-02 09:55 | disposition home or self-care (01) ==
LOC: CHSLAB 09:56
PROVIDERS: PCP Internal Medicine; Visit Provider Internal Medicine Rheumatology
DX: Z79.899 Other long term (current) drug therapy (principal)
CPT/HCPCS: 36415; 80053; 85025; 85652; 86140

== ENCOUNTER 2024-01-15 08:32 | Outpatient (RCR) | payer MEDICARE, SELFPAY ==
--- NOTE | 2024-01-15 08:37 | OPREHPOC ---
Outpatient Therapy Plan of Care This is a Multidisciplinary Plan of Care that may contain components documented by all disciplines (PT, OT, and ST.) PT Problem 1 PT Problem #1 Knowledge Deficit PT Goal 1 Goal / Goal Update 1. independent and compliant with HEP Target Visit 6 PT Problem 2 PT Problem #2 Pain PT Goal 1 Goal / Goal Update 1. decrease pain at worst to 4/10 or less in the cervical spine Target Visit 12 PT Problem 3 PT Problem #3 Impaired Range of Motion PT Goal 1 Goal / Goal Update 1. improve active cervical flexion and extension to 40 degrees or better each 2. improve active cervical side bending to 20 degrees or better bilat 3. improve active cervical rotation to 45 degrees or better bilat Target Visit 12 PT Problem 4 PT Problem #4 Impaired Strength PT Goal 1 Goal / Goal Update 1. improve bilateral shoulder strength to 4+/5 or better overall 2. improve bilateral wire mesh knitter strength to 80lbs or better Target Visit 12 PT Problem 5 PT Problem #5 Impaired Functional Mobil PT Goal 1 Goal / Goal Update 1. NDI to display 10% or less functional deficits 2. patient to sleep through the night 4 nights a week Target Visit 12
--- NOTE | 2024-01-15 08:37 | PTOPEVAL1 ---
Assessment and note entered by JT File, PT Evaluation Information Assessment Status Evaluation ICD-10 Condition Codes (PT) Cervicalgia M54.2 Onset 09/01/23 Subjective Information patient reports he has been having pain since August of this year. he reports his neck got so stiff he was unable to turn his head at all. he reports he tried changing pillows that did not help with his pain or tightness. he reports some days and weeks it is better, and other days and weeks it is even worse. he reports he has really struggled to sleep the past month or more. he reports rolling side to side will really bother his neck. he reports he does not get any NTB in the arms or hands. he reports he did have an MRI of the neck. he reports he has not seen a specialist for this issue yet. Reported Pain Level Pain Score 1: Self Report Assessment PT Clinical Summary mr. amaral is a 68 yo man who presents to skilled PT services for evaluation and treatment of neck pain. he presents this date with signs and symptoms of cervical spondylosis/DDD. 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 he would benefit from continued skilled PT to address his objective/functional deficits and improve his functional activity performance/quality of life. Plan of Care Interventions Electrical Stimulation,Hot Pack/Cold Pack,Manual Therapy,Mechanical Traction,Neuro Re-education, Patient/Caregiver Educati,Therapeutic Activities, Therapeutic Exercise PT Services Indicated Yes Treatment Frequency and 3x weekly for 12 visits Duration These treatments will address the objective and functional deficits as defined above. The patient will be advanced safely and appropriately in order for the patient to progress towards his/her prior level of function. Additional exercises will be introduced and as well as a comprehensive home exercise program upon discharge, if needed, ?to ensure carryover of functional gains achieved in the clinic. This treatment plan has been reviewed and agreement upon by the patient.
--- NOTE | 2024-02-10 09:36 | OPREHPOC ---
Outpatient Therapy Plan of Care This is a Multidisciplinary Plan of Care that may contain components documented by all disciplines (PT, OT, and ST.) PT Problem 1 PT Problem #1 Knowledge Deficit PT Goal 1 Goal / Goal Update 1. independent and compliant with HEP Target Visit 6 Progress Met PT Problem 2 PT Problem #2 Pain PT Goal 1 Goal / Goal Update 1. decrease pain at worst to 4/10 or less in the cervical spine Target Visit 12 Progress Not Met PT Goal 2 Goal / Goal Update continue PT Problem 3 PT Problem #3 Impaired Range of Motion PT Goal 1 Goal / Goal Update 1. improve active cervical flexion and extension to 40 degrees or better each -met for extension, not met for flexion 2. improve active cervical side bending to 20 degrees or better bilat -not met 3. improve active cervical rotation to 45 degrees or better bilat -met on the right, not met on the left Target Visit 12 Progress Partially Met PT Goal 2 Goal / Goal Update continue PT Problem 4 PT Problem #4 Impaired Strength PT Goal 1 Goal / Goal Update 1. improve bilateral shoulder strength to 4+/5 or better overall 2. improve bilateral english horn player strength to 80lbs or better Target Visit 12 Progress Not Met PT Goal 2 Goal / Goal Update continue PT Problem 5 PT Problem #5 Impaired Functional Mobility PT Goal 1 Goal / Goal Update 1. NDI to display 10% or less functional deficits 2. patient to sleep through the night 4 nights a week Target Visit 12 Progress Not Met PT Goal 2 Goal / Goal Update continue
--- NOTE | 2024-02-10 09:37 | PTOPPROGNS ---
Assessment and note entered by Kathryn Salas, PT Evaluation Information Assessment Status Progress ICD-10 Condition Codes (PT) Cervicalgia M54.2 Onset 09/01/23 Subjective Information Raul Kirby reports his neck pain is getting better overall. He has no pain at rest today but does note tenderness when the left upper shoulder is touched. He also continues to have difficulty sleeping due to increased pain in the neck when he rolls over. He notes he sleeps better sitting up than he does laying down. Assessment PT Clinical Summary Raul Kirby has completed 10 skilled PT visits for cervical pain. He is reporting improved pain overall noting minimal pain the last few days. He does still have difficulty sleeping due to neck pain. He demonstrates improved cervical AROM but continues to have limitations and pain with left lateral flexion and left rotation. He demonstrates tension and tenderness in the left upper trapezius as well as decreased shoulder strength and posture. He will continue to benefit from skilled PT to further address ongoing limitations. Plan of Care Interventions Electrical Stimulation,Hot Pack/Cold Pack,Manual Therapy,Mechanical Traction,Neuro Re-education, Patient/Caregiver Education,Therapeutic Activities ,Therapeutic Exercise PT Services Indicated Yes Treatment Frequency and Continue skilled PT for 2 additional visits per Duration original POC. These treatments will address the objective and functional deficits as defined above. The patient will be advanced safely and appropriately in order for the patient to progress towards his/her prior level of function. Additional exercises will be introduced and as well as a comprehensive home exercise program upon discharge, if needed, ?to ensure carryover of functional gains achieved in the clinic. This treatment plan has been reviewed and agreement upon by the patient.
--- NOTE | 2024-02-17 11:56 | PTOPEVAL1 ---
Assessment and note entered by Alexandra Plascencia DPT Evaluation Information Assessment Status Discharge ICD-10 Condition Codes (PT) Cervicalgia M54.2 Onset 09/01/23 Subjective Information Patient reports he has improved since starting PT. He reports that stretching has helped the most to decrease pain. He reports that sleeping can be bothersome if he rolls over. He reports independence with HEP Reported Pain Level Pain Score 1: Self Report Assessment PT Clinical Summary Mr. Kirby has attended 12 visits of skilled PT and made good progress towards goals. 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 He reports some continued difficulty with sleeping but improvement since start of PT. He is independent with HEP and is appropriate for DC at this time. Plan of Care Interventions Electrical Stimulation,Hot Pack/Cold Pack,Manual Therapy,Mechanical Traction,Neuro Re-education, Patient/Caregiver Education,Therapeutic Activities ,Therapeutic Exercise PT Services Indicated No Treatment Frequency and DC to independent HEP Duration These treatments will address the objective and functional deficits as defined above. The patient will be advanced safely and appropriately in order for the patient to progress towards his/her prior level of function. Additional exercises will be introduced and as well as a comprehensive home exercise program upon discharge, if needed, ?to ensure carryover of functional gains achieved in the clinic. This treatment plan has been reviewed and agreement upon by the patient.
== END 2024-02-17 14:02 | disposition home or self-care (01) ==
LOC: CHSPT 08:32
PROVIDERS: Visit Provider Internal Medicine
DX: M54.2 Cervicalgia (principal); M47.812 Spondylosis without myelopathy or radiculopathy, cervical region; G89.29 Other chronic pain
CPT/HCPCS: 97012; 97014; 97110; 97140; 97161; G0283

== ENCOUNTER 2024-05-14 08:15 | Outpatient (CLI) | payer MEDICARE, SELFPAY ==
--- OUTSIDE RECORDS SUMMARY | 2024-05-14 08:28 | XMS_ITS | Encounter Summary ---
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
--- OUTSIDE RECORDS SUMMARY | 2024-05-14 08:28 | XMS_ITS | Clinical Summary ---
Author Organization [facility] Address [address] [place] [address] Care Team Providers Care Thread Tool Grinder Set Up Operator Name Role Phone Clarence Zabala MD Primary Care Provider [phone] Clarence Zabala MD Unavailable [phone] Allergies No known active allergies Medications atorvastatin (LIPITOR) 20 mg tabletIndication s:hyperlipidemia Take 1 tablet (20 mg total) by mouth every morning 8 Active metFORMIN (GLUCOPHAGE) 500 mg tabletIndication s:Prevention of Type 2 Diabetes Mellitus Take 2 tablets (1,000 mg total) by mouth 2 (two) times a day with meals Active ketoconazole (NIZORAL) 2 % shampoo Apply 1 Application topically 2 (two) times a week 3 Active folic acid (FOLVITE) 1 mg tablet Take 1 tablet (1,000 mcg total) by mouth nightly 3 Active losartan (COZAAR) 50 mg tabletIndication s:hypertension Take 1 tablet (50 mg total) by mouth every morning 3 Active methotrexate 2.5 mg tabletIndication s:psoriatic arthritis Take 6 tablets (15 mg total) by mouth every 7 days Takes on Wednesdays 3 Active acetaminophen (TYLENOL) 500 mg tablet Take 2 tablets (1,000 mg total) by mouth every 6 (six) hours 60 tablet 1 3 Active celecoxib (CeleBREX) 100 mg capsule Take 1 capsule (100 mg total) by mouth 2 (two) times a day 28 capsule 3 Active docusate sodium (COLACE) 100 mg capsuleIndicatio ns:constipation Take 1 capsule (100 mg total) by mouth 2 (two) times a day 30 capsule 1 3 Active traMADoL (ULTRAM) 50 mg tabletIndication s:Left shoulder pain, unspecified chronicity Take 1 tablet (50 mg total) by mouth every 6 (six) hours as needed for pain 30 tablet 3 Active ergocalciferol (VITAMIN D) 50,000 unit capsuleIndicatio ns:Vitamin D Deficiency Take 1 capsule (50,000 Units total) by mouth once a week 12 capsule 3 Active Active Problems Problem Noted Date Diagnosed Date 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 Acute hypoxemic respiratory failure likely due to temporary diaphragm/phrenic nerve paralysis - CT PE with LLL lobar collapse - Wean oxygen as tolerated - IS, pulmonary toilet - Today, SOB resolved, off oxygen, and moving air well on L side -Discharge home Postoperative respiratory complication Assessment & Plan (12/21/2022 9:43 AM CDT): -acute hypoxic respiratory failure due to diaphragmatic paralysis (temporary) due to LEFT plexus block causing LEFT phrenic nerve palsy -see above S/P shoulder replacement, left 12/18/2022 Assessment & Plan (12/21/2022 9:41 AM CDT): S/p arthoplasty on 12/18 - continue management of post-operative pain: celecoxib, oxycodone - ortho consult -[facility] JACKIE HTN (hypertension) 12/06/2022 HLD (hyperlipidemia) 12/06/2022 Type 2 diabetes mellitus 12/06/2022 Assessment & Plan (12/21/2022 9:41 AM CDT): A1c 7.0% 12/16 - Holding home metformin while inpatient, resume on discharge Class 3 severe obesity in adult 12/06/2022 Osteoarthritis of left shoulder 10/01/2022 Necrotizing granulomatous inflammation of lung 0 08/29/2020 Overview (08/29/2020): Added automatically from request for surgery [id number] Pneumothorax 08/17/2020 Overview (08/17/2020): Added automatically from request for surgery [id number] Resolved Problems Problem Noted Date Diagnosed Date Resolved Date Hyponatremia 12/20/2022 12/21/2022 Assessment & Plan (12/20/2022 3:49 PM CDT): Likely secondary to hypovolemic hyponatremia - Check urine sodium, osmolality - Gentle IVF - Repeat BMP in AM Surgical History Surgery Date Site/Laterality Comments HERNIA REPAIR KNEE ARTHROSCOPY Bilateral Multiple with last 2014 BRONCHOSCOPY COLONOSCOPY Medical History Medical History Date Comments Bradycardia HLD (hyperlipidemia) Former smoker Morbid obesity (HCC) DM2 (diabetes mellitus, type 2) (HCC) Glenohumeral arthritis HTN (hypertension) HLD (hyperlipidemia) 12/06/2022 Family History Medical History Relation Name Comments Stroke Brother Arthritis Father Family history of arthritis - (Added by TW Conv) Arthritis Mother Family history of arthritis - (Added by TW Conv) Diabetes Mother Family history of diabetes mellitus - (Added by TW Conv) Hypertension Mother Family history of hypertension - (Added by TW Conv) Anesthesia problems Neg Hx Relation Name Status Comments Brother Alive CVA age 70s Father Mother Social History Tobacco Use Types Packs/Day Years Used Date Smoking Tobacco: Former Cigarettes 1.5 42 1 968 - 2010 Smokeless Tobacco: Never Tobacco Cessation:Counseling Given: Not Answered AUDIT-C Answer Date Recorded Q1: How often do you have a drink containing alc ohol? 2-4 times a month 12/18/2022 Q2: How many drinks containi ng alcohol do you have on a typical day when you are drinking? 1 or 2 12/18/2022 Q3: How often do you have si x or more drinks on one occasion? Never 12/18/2022 Personal Safety Answer Date Recorded Have you ever been in or are you currently in a harmful physical or emotional relationship or is someone making you feel afraid or unsafe? Denies 12/20/2022 Sex and Gender Information Value Date Recorded Sex Assigned at Not on file Legal Sex Male 9:51 AM CDT Gender Identity Not on file Sexual Orientation Not on file Obstetrics History Last Filed Vital Signs Vital Sign Reading Time Taken Comments Blood Pressure 153/89 12/21/2022 7:23 AM CDT Pulse 63 12/21/2022 7:23 AM CDT Temperature 36.8 C (98.3 F) 12/21/2022 7:23 AM CDT Respiratory Rate 16 12/21/2022 7:23 AM CDT Oxygen Saturation 96% 12/21/2022 7:23 AM CDT Inhaled Oxygen Concentration - - Weight 127.1 kg (280 lb 1.6 oz) 12/20/2022 2:49 PM CDT Height 175.3 cm (5' 9.02 ) 12/20/2022 2:49 PM CD T Body Mass Index 41.34 12/20/2022 2:49 PM CDT Plan of Treatment Health Maintenance Due Date Last Done Comments Albumin Creatinine Ratio, Urine 1955 Colon Cancer Screening-Colonoscopy 1955 Depression Screening 1955 Hepatitis C Screening 1955 Prostate Cancer Screening-PSA 1955 Dilated Eye Exam 1955 Foot Exam 1955 Lipid Panel 1955 Hepatitis B Screening 1973 Abdominal Aortic Aneurysm (A AA) Screen 2020 Well Visit 65+ 2020 DTaP/Tdap/Td Vaccine (2 - Td or Tdap) 04/19/2020 04/19/2010 Hemoglobin A1C 06/07/2023 12/06/2022 Covid-19 Vaccine (4 - 2023-2 5 season) 2023 02/22/2021, 05/12/2020, 04/21/2020 Influenza Vaccine (#1) 2023 , 01/02/2022, 12/01/2019, Additional history exists Fall Risk Assessment 12/22/2023 12/21/2022 eGFR 12/22/2023 12/21/2022, 12/01, 12/19/2022, Additional history exists Pneumococcal vaccine 65+ (3 of 3 - PPSV23, PCV20 or PCV21) 04/20/2024 04/20/2019, 08/12/2018 Zoster Vaccine Completed 02/04/2020, 11/03, 09/09/2015 Medical Devices Implanted Type Area Boom Tender Device Identifier Shelf Expiration Date Model / Serial / Lot [employer] Simplex P Radiopaque Full Dose Cement Bone Sterile 6191-1-010 - Sna - [id number] Implanted:Qty: 1 on 12/18/2022 by Jl Encarnacion MD at [facility] Bone [employer]ement [employer] 05/01/2023 [id number] 10 / NA / [id number] Description:Implant Pause pe rformed [employer] Perform Cortiloc 40mm Peg Shoulder Large Component Glenoid [id number] - [id number] - [id number] Implanted:Qty: 1 on 12/18/2022 by Jl Encarnacion MD at [facility] Other - see comments Left: Shoulder [employer] [id number] 02/27/2027 [id number] / [id number] / Description:Implant Pause pe rformed [employer] Tray Stem Humeral Shoulder Reverse Aequalis Perform [id number] - Sna - [id number] Implanted:Qty: 1 on 12/18/2022 by Jl Encarnacion MD at [facility] Other - see comments Left: Shoulder [employer] [id number] 04/29/2027 [id number] / PAT / [id number] Description:Implant Pause pe rformed [employer] Projection Printer Perform Low Offset Modular Humeral Head Ti [id number] - Sna - [id number] Implanted:Qty: 1 on 12/18/2022 by Jl Encarnacion MD at [facility] Other - see comments Left: Shoulder [employer] [id number] 05/17/2027 [id number] / PAT / [id number] Description:Implant Pause pe rformed [employer] Head Perform Cocr Modular Humeral [id number] - Sna - [id number] Implanted:Qty: 1 on 12/18/2022 by Jl Encarnacion MD at [facility] Other - see comments Left: Shoulder [employer] [id number] 05/03/2027 [id number] / NA / [id number] Description:Implant Pause pe rformed Procedures Procedure Name Priority Date/Time Associated Diagnosis Comments EGFR Routine 12/21/2022 4:21 AM CDT HEMOGLOBIN A1C Routine 12/06/2022 10:31 AM CDT Preoperative testing Type 2 diabetes mellitus without complication, without long-term current use of insulin (HCC) from Last 3 Months or Most Recently Relevant to Health Maintenance Results * eGFR (12/21/2022 4:21 AM CDT) eGFR 74 mL/min/1. 73 m2 Comment: Interpretive Data Reference Interval Normal >/= 90 mL/min/1.73m2 Mildly decreased* 60 - 89 mL/min/1.73m2 Mildly to moderately decreased 45 - 59 mL/min/1.73m2 Moderately to severely decreased 30 - 44 mL/min/1.73m2 Severely decreased 15 - 29 mL/min/1.73m2 Kidney Failure < 15 mL/min/1.73m2 *Relative to young adult level Estimated glomerular filtration rate is determined by the 2020 CKD-EPI equation recommended by the National Kidney Foundation (A Unifying Approach to GFR Estimation: Recommendations of the NKF-ASK Task Force on Reassessing the Inclusion of Race in Diagnosing Kidney Disease, JASN 2020). The CKD-EPI equation should not be used for patients with unstable renal function and has not been validated in children and those over 70. Current interpretive data was last reviewed 2021. Blood 12/21/2022 4:21 AM CDT 12/21/2022 4:27 AM CDT us Wilber Vasquez MD LAB BLOOD ORDERABLES Final R esult [facility] [id number] [facility]. [address] [place] [address] * (ABNORMAL) Hemoglobin A1c (12/06/2022 10:31 AM CDT) Hgb A1C 7.0(H) 4.0 - 5.6 % TERESA DONNELLY Estimated Average Glucose 154 mg/dL TERESA DONNELLY Comment: The ADA recommends reporting an estimated Average Glucose (eAG) with all Hemoglobin A1c results using the equation derived from a study of 507 normal and diabetic adults. Minority populations were underrepresented and children were not included. (Diabetes Care 31:1277-9431, 2008). The eAG is not equivalent to a fasting glucose. Blood 12/06/2022 10:3 1 AM CDT 12/06/2022 11:05 AM CDT Melina Baer NP LAB BLOOD ORDERABLES Final Result [facility] [address] [facility]. [place] [address] from Last 3 Months or Most Recently Relevant to Health Maintenance Insurance MEDICARE [employer] SENIOR SUPPLEMENT MEDICARE T SENIOR SUPPLEMENT MEDICARE [employer] SENIOR SUPPLEMENT MEDICARE [employer] Advance Directives For more information, please contact: [phone] * Full Code (Latest Code Status on File) Date Activated Date Inactivated Comments 12/20/2022 2:42 PM 12/21/2022 4:22 PM * Full Code Date Activated Date Inactivated Comments 12/18/2022 2:54 PM 12/19/2022 8:56 PM Care Teams Thread Tool Grinder Set Up Operator Relationship Specialty Start Date End Date Clarence Zabala MD [address] [place] [address] PCP - General Internal Medicine 12/06/22 Clarence Zabala MD [address] [place] [address] 12/06/22
--- OUTSIDE RECORDS SUMMARY | 2024-05-14 08:28 | XMS_ITS | Data Portability ---
Author Organization [facility], [address] Neurology ([place]) Address [address] [address] Care Team Providers Care Auto Parts Salesperson Name Role Phone WILFRED AGUILERA Primary Care Provider Assessment Encounter Date Assessment Date Assessment LastModified by Organization Details LastModified Time 03/01/2024 03/01/2024 IMPRESSION: 1. Psoriatic arthritis, currently well controlled. 2. Plaque psoriasis, currently well controlled. 3. Osteoarthritis. PLAN: 1. DMARD labs to continue every 4 months as ordered. 2. Continue current methotrexate and folate dosing. 3. Encouraged patient to keep active with walking for 1 hour daily. 4. Followup visit in 1 year for recheck. aster [email or web address] Not available 03/01/2024 14:13:38 Plan of Treatment Reminders Order Date Submit Date Provider Last Modified By Organization Details Last Modified Time Details Appointments Establish ed Patient 15.EST 2024 10:15A M Dr. Emre White Not available Not available Not available Lab None recorded. Referral None recorded. Procedures None recorded. Surgeries None recorded. Imaging None recorded. Medication Orders None recorded. Patient TargetsNo targets recorded. Patient InstructionsNo instructions recorded. Reason for Referral None Reported. Problems Name Problem SNOMED Code Status Onset Date Resolution Date Notes Provider Name and Address Organization Details Recorded Time Psoriatic arthritis 872462595 Active 2023 Emre White MD [address] [place] [address], [phone] , [facility] 4 12:13:25 Plaque psoriasis 370436147 Active 2023 Emre White MD [address] [place] [address], [phone], [facility] 4 12:13:33 Degenerative joint disease involving multiple joints 547364718 Active 2023 Emre White MD [address] [facility], [place], [phone], [facility] 4 12:13:41 Problem Notes None recorded. Procedures Surgical History Date Name Laterality Status Provider Name and Address Organization Details Recorded Time Colonoscopy with biopsy completed Not Available Health Note 02/23/2024 12:11:25 Imaging Results None recorded. Procedure Notes None recorded. Medical Equipment None Reported. Medications Name Sig Start Date Stop Date Status Note LastModified by Organization Details LastModified Time losartan 50 mg tablet TAKE 1 TABLET BY MOUTH EVERY DAY active Not Available Not Available No t Available amoxicillin 500 mg capsule TAKE 4 CAPSULES BY MOUTH ONE HOUR PRIOR TO DENTAL APPOINTMENT active Not Available Not Available Not Available atorvastatin 20 mg tablet TAKE 1 TABLET BY MOUTH EVERY DAY active Not Available Not Available No t Available ketoconazole 2 % shampoo APPLY EVERY OTHER DAY TO SCALP X 5 MINUTES AND RINSE active Not Available Not Available No t Available methotrexate sodium 2.5 mg tablet ONCE WEEKLY, TAKE 6 TABLETS BY MOUTH active Not Available Not Available No t Available folic acid 1 mg tablet Take 1 tablet every day by oral route. 2023 active Not Available Not Available Not Avai albert metformin ER 500 mg tablet,exten ded release 24 hr TAKE 4 TABLETS BY MOUTH EVERY DAY WITH DINNER active Not Available Not Available No t Available Mounjaro 7.5 mg/0.5 mL subcutaneous pen injector Inject 7.5 mg every week by subcutaneou s route. active Not Available Not Available No t Available Vitals Date Recorded Body height Body mass index (BMI) Body weight Heart rate Oxygen saturation Oxygen saturation in Arterial blood by Pulse oximetry Pain severity - 0-10 verbal numeric rating [Score] - Reported Systolic blood pressure Diastolic blood pressure Provider Name and Address Organization Details Last Updated DateTime 4 177.8 cm 36.3 kg/m2 774311. 23 g 50 /min 95 % 95 % 0 126 mm[Hg] 70 mm[Hg] Edelmira Mac [facility] 4 11:38:09 Social History Question Answer Notes LastModified by Organizat ion Details LastModified Time Tobacco Smoking Status Former Smoker Not Available Health Note 02/23/2024 12:11:26 Do You Have An Advance Directive? No [email or web address] Information not available 02/23/2024 What Is Your Level Of Alcohol Consumption? None [email or web address] Information not available 02/23/2024 What Is Your Level Of Caffeine Consumption? Occasional [email or web address] Information not available 02/23/2024 Are You Currently Employed? 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 5-7 Times Per Week [email or web address] Information not available 02/23/2024 When Did You Quit Smoking? 04/03/2009 [email or web address] Information not available 02/23/2024 What Was The Date Of Your Most Recent Tobacco Screening? 03/01/2024 [email or web address] Information not available 02/23/2024 What Is Your Relationship Status? [email or web address] Information not available 02/23/2024 Do You Use Any Illicit Or Recreational Drugs? No [email or web address] Information not available 02/23/2024 Sex: Unknown Functional Status Question Answer Note LastModified by Organization D etails LastModified Time What is your exercise level? Moderate [email or web address] Information not available 02/23/2024 Mental Status None recorded. Family History Relationship Description Onset Age of this Age Resolved Age Notes LastModified by Organization Details LastModified Time Mother Arthritis [email or web address] Not available 02/23/2024 12:11:25 Mother Diabetes mellitus [email or web address] Not available 2023 12:11:25 Mother Hypertensive disorder [email or web address] Not available 2023 12:11:25 Sister Arthritis [email or web address] Not available 02/23/2024 12:11:25 Sister Family history of malignant neoplasm [email or web address] Not available 2023 12:11:25 Brother Arthritis [email or web address] Not availabl e 02/23/2024 12:11:25 Brother Hypertensive disorder [email or web address] Not available 2023 12:11:25 Brother Cerebrovascu lar accident [email or web address] Not available 12:11:25 Maternal Grandmother Diabetes mellitus [email or web address] Not available 2023 12:11:25 Father Hypercholest erolemia [email or web address] Not available 2023 12:11:25 Medical History Condition Response Anxiety Disorder N Diabetes Y Bleeding Disorder N Attention-deficit Hyperactivity Disorder N High Blood Pressure Y Arthritis Y Hyperlipidemia N Cancer N Thyroid Problems N Stroke N COPD N Depression N Asthma N Seizures N Anemia N Heart Disease N Fibromyalgia N Osteoporosis N Kidney Disease N Past Encounters Encounter ID Performer Location Encounter Start Date Encounter Closed Date Diagnosis/Indication Diagnosis SNOMED-CT Code Diagnosis ICD10 Code Diagnosis Note [id number] Emre White MD [address] Rheumatol ogy ([place]) [address] [place] [phone] 03/01/2024 11:25:31 03/01/2024 18:18:08 Psoriatic arthritis 567967808 L40.59 Plaque psoriasis 9266693 09 L40.0 Degenerati ve joint disease involving multiple joints 159696971 M15.9 Health Concerns Section Related Observation LastModified by Organization Detai ls LastModified Time None Recorded Concern Status LastModified by Organization Details LastModified Time None Recorded Advance Directives Directive N: Payers Encounter Date Sequence Insurance Name Policy Number Policy Frazier Covered Member ID Frazier Member ID Guarantor Name 03/01/2024 1 [place] Raul Stanley Mirta [id number] Raul Kirby 03/01/2024 2 [employer]ETNA (MEDICARE SUPPLEMENT) Raul Kirby [id number] Raul Lizeth Mirta Notes Date Note Type Note Provider Name and Address Organization Details Recorded Time 03/01/2024 text/html The patient is a 68-year-old gentleman with polyarticular psoriatic arthritis and osteoarthritis, as well as plaque psoriasis, who is here today for a followup visit. He continues on moderate dose methotrexate therapy and reports overall doing quite well. He tolerates the medication without postdosing headache, nausea, vomiting, stomatitis, cough, pleurisy, shortness of breath, chest pain or palpitations, GERD, melena or hematochezia, diarrhea or constipation. His appetite has been normal. No increased frequency of infections. He rates his pain level a 0/10 on a scale with no significant morning stiffness. He keeps very active on his feet. 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 He denies any issues with renal calculi, gross hematuria, bleeding from the nares or gums, numbness or tingling. His energy level is normal. Appetite is normal.aster Kirbytigre a 68 year oldmalepresenting for care. Emre White MD [address] [place] [address], [phone], [facility] 03/01/2024 20:54:46
--- OUTSIDE RECORDS SUMMARY | 2024-05-14 08:28 | XMS_ITS | Referral Summary ---
Author Organization [facility] Address [address] [place] [address] Care Team Providers Care Woodworking Shop Laborer Name Role Phone Clarence Zabala MD Primary Care Provider [phone] Clarence Zabala MD Unavailable [phone] Allergies No known active allergies Medications atorvastatin [...] (08/29/2020): Added automatically from request for surgery [id number] Pneumothorax 08/17/2020 Overview (08/17/2020): Added automatically from request for surgery [id number] Resolved Problems Problem Noted Date Diagnosed Date Resolved Date Hyponatremia 12/20/2022 12/21/2022 Assessment & Plan (12/20/2022 3:49 PM CDT): Likely secondary to hypovolemic hyponatremia - Check urine sodium, osmolality - Gentle IVF - Repeat BMP in AM Social History Tobacco Use Types Packs/Day Years Used Date Smoking Tobacco: Former Cigarettes 1.5 42 1 968 - 2009 Smokeless Tobacco: Never Tobacco Cessation:Counseling Given: Not [...] on file Sexual Orientation Not on file Last Filed Vital Signs Vital Sign Reading [...] 12/20/2022 2:49 PM CDT Plan of Treatment Not on file Medical Devices Implanted Type Area Vice President Fixed Income Device Identifier Shelf Expiration Date Model / Serial / Lot [employer] Simplex P Radiopaque Full Dose Cement Bone Sterile 6191-1-010 - Sna - [id number] Implanted:Qty: 1 on 12/18/2022 by Jl Encarnacion MD at [facility] Bone Cement [employer] 05/01/2023 6191-1-0 10 / NA / [id number] Description:Implant Pause pe rformed Next 2 [employer] Perform Cortiloc 40mm Peg Shoulder Large Component Glenoid [id number] - [id number] - [id number] Implanted:Qty: 1 on 12/18/2022 by Jl Encarnacion MD at [facility] Other - see comments Left: Shoulder Next 2 [employer] [id number] 02/27/2027 [id number] / [id number] / Description:Implant Pause pe rformed Next 2 [employer] Tray Stem Humeral Shoulder Reverse Aequalis Perform Dwx3ss - Sna - [id number] Implanted:Qty: 1 on 12/18/2022 by Jl Encarnacion MD at [facility] Other - see comments Left: Shoulder Next 2 [employer] [id number] 04/29/2027 [id number] / PAT / [id number] Description:Implant Pause pe rformed Next 2 [employer] Permastone Mechanic Perform Low Offset Modular Humeral Head Ti Zab110 - Sna - [id number] Implanted:Qty: 1 on 12/18/2022 by Jl Encarnacion MD at [facility] Other - see comments Left: Shoulder Next 2 [employer] [id number] 05/17/2027 [id number] / NA / [id number] Description:Implant Pause pe rformed Next 2 [employer] Head Perform Cocr Modular Humeral [id number] - Sna - [id number] Implanted:Qty: 1 on 12/18/2022 by Jl Encarnacion MD at [facility] Other - see comments Left: Shoulder Game Blisters [id number] 05/03/2027 [id number] / NA / [id number] Description:Implant Pause pe rformed Procedures Procedure [...] 4:21 AM CDT 12/21/2022 4:27 AM CDT Wilber Vasquez MD LAB BLOOD ORDERABLES Final R esult [facility] [address] [facility] [place] [address] * (ABNORMAL) Hemoglobin A1c (12/06/2022 [...] and children were not included. (Diabetes Care 31:8816-4801, 2008). The eAG is not equivalent to a fasting glucose. Blood 12/06/2022 10:3 1 AM CDT 12/06/2022 11:05 AM CDT Melina Baer NP LAB BLOOD ORDERABLES Final Result Performing Organization Address City/State/ZIP Co fl Phone Number [facility] [address] [facility] [place] [address] from Last 3 Months or Most Recently Relevant to Health Maintenance Insurance MEDICARE AETNA SENIOR SUPPLEMENT MEDICARE T SENIOR SUPPLEMENT MEDICARE AETNA SENIOR SUPPLEMENT MEDICARE AETNA Advance Directives For more information, please contact: [phone] * Full Code (Latest Code Status on File) Date Activated Date Inactivated Comments 12/20/2022 2:42 PM 12/21/2022 4:22 PM * Full Code Date Activated Date Inactivated Comments 12/18/2022 2:54 PM 12/19/2022 8:56 PM Care Teams Woodworking Shop Laborer Relationship Specialty Start Date End Date Clarence Zabala MD [address] [place] [address] PCP - General Internal Medicine 12/06/22 Clarence Zabala MD [address] [place] [address] 12/06/22
--- OUTSIDE RECORDS SUMMARY | 2024-05-14 08:28 | XMS_ITS ---
Author Organization [facility] Address [address] [facility] [address] [place], [place] [id number] Care Team Providers Care Kick Press Setter Name Role Phone CATALINA VAN Unavailable [phone] Elsi Zabala Unavailable Unavailable Allergies No Known Allergies REASON FOR VISIT *Possible ingrown nail Vital Signs Height 70.00 in 04/25/2023 Weight 280 lbs 04/25/2023 BMI 40.17 kg/m2 04/25/2023 Height-cm 177.80 cm 04/25/2023 Weight-kg 127.01 kg 04/25/2023 Encounters Encounter Location Date Provider Diagnosis [facility] [address] [place], [place] [id number] 04/25/2023 CATALINA VAN Ingrowing nail L60.0 ; Cellulitis of left toe L03.032 and Pain in left toe(s) M79.675 Assessments Encounter Date Diagnosis (ICD Code) Assessment Notes Treatment Notes Treatment Clinical Notes Section Notes 04/25/2023 Ingrowing nail (ICD-10 - L60.0) 04/25/2023 Cellulitis of left toe (ICD-10 - L03.032) 04/25/2023 Pain in left toe(s) (ICD-10 - M79.675) 04/25/2023 Other Slant Back Toenail: Following skin prep, the offending nail border was debrided without anesthesia. The patient was instructed on monitoring for infection or recurrence. Plan Of Treatment Treatment Notes Assessment Notes Other Slant Back Toenail: Following skin prep, the offending nail border was debrided without anesthesia. The patient was instructed on monitoring for infection or recurrence. Progress Notes * HERIBERTO, IVANDOB:1955 (68 yo M)Acc No.[id number]:04/25/2023 Patient: LILI UNGER Provider: Eliel Van DPM :1955 A ge:68 Y S ex:Male Date:04/25/2023 Address:[address] [place] [address], [place] [address] Subjective: * Chief Complaints: * 1 . *Possible ingrown nail. * HPI: H PI: New Complaint E stablished patient presents with a new complaint., Patient complains of an issue to the medial side of his left great toenail. He states he thinks it was ingrown and he clipped it out himself. It is doing much better, but he descided to keep his appoiuntment and have it looked at. Duration of problem is 2 weeks. P atient denies any injury. M A: sea. * ROS: G eneral / Constitutional: Patient denies c hills, fever. E ndocrine: Patient denies e xcessive thirst, frequent urination. ? C ardiovascular: Patient denies s hortness of breath, chest pain. S kin: Patient denies m ole changes. * Medical History: * Family History: F ather: PRN - Father: :: Arthritis,,known absent . M other: PRN - Mother: :: Arthritis,,known absent . * Social History: M igrated Social History: M igrated Social History: Smoking Status : Former tobacco user , History of tobacco use :. * Allergies: N .K.D.A. Objective: * Vitals: W t:280lbs, Wt-k.01 kg, Ht: 70.00 in, Ht-cm: 177.80 cm, BMI:40.17Index, Body Surface Area: 2.5. * Examination: P hysical Examination: Gen: T he patient is awake, alert, well developed, well groomed and well nourished. They are in no apparent distress. . Musc: F oot structure is normal. No abnormalities noted. Muscle strength is 5/5 to all joints bilaterally. There is no pain on palpation. . Derm: S kin is warm and dry, with no rashes, good skin turgor and normal hair distribution. The medial nail border is incurvated - left great toe. . Neuro: G rossly intact to light touch bilateral.. Vasc: D orsalis pedis and posterior tibial pulses 2+ bilaterally. No edema noted. Capillary fill time < 3 seconds to all digits. . Assessment: * Assessment: 1. I ngrowing nail - L60.0 (Primary) 2 . C ellulitis of left toe - L03.032 3 . P ain in left toe(s) - M79.675 Plan: * Treatment: * Billing Information: * Visit Code: 44490 Office Visit, Est Pt., Level 3. * Procedure Codes: * DISTRIBUTION AND EMERGENCY CLERK Sign off status: Completed true * Provider: Eliel Van DPM Date: 0 04/25/2023 Generated for Malinda singer/Atiya/Jasonsmitting on: 0 05/14/2024 08:28 AM CDT History and Physical Notes * HPI (History of Present Illness) Category Sub-Category Detail Notes Category Not es HPI New Complaint Established leena ent presents with a new complaint., Patient complains of an issue to the medial side of his left great toenail. He states he thinks it was ingrown and he clipped it out himself. It is doing much better, but he descided to keep his appoiuntment and have it looked at. Duration of problem is 2 weeks. Patient denies any injury. MA: sea Examination Category Sub-Category Detail Notes Category Not es Physical Examination Gen: The patient is awake, alert, well developed, well groomed and well nourished. They are in no apparent distress. Vasc: Dorsalis pedis and p osterior tibial pulses 2+ bilaterally. No edema noted. Capillary fill time < 3 seconds to all digits. Neuro: Grossly intact to li ght touch bilateral. Musc: Foot structure is no rmal. No abnormalities noted. Muscle strength is 5/5 to all joints bilaterally. There is no pain on palpation. Derm: Skin is warm and dry , with no rashes, good skin turgor and normal hair distribution. The medial nail border is incurvated - left great toe.
--- OUTSIDE RECORDS SUMMARY | 2024-05-14 08:28 | XMS_ITS | Patient Health Record ---
Author Organization [facility] Address [address] [place], [place] [id number] Care Team Providers Care Software Development Advisor Name Role Phone CATALINA GREENE Unavailable [phone] Elsi Zabala Unavailable Unavailable Allergies No Known Allergies Reason For Referral No Information Plan Of Treatment No Information Insurance Providers Payer Name Payer Address Payer Phone Subscriber Number Group Number Insured Name Patient Relationship to Insured Coverage Start Date Coverage End Date Medicare Part B [place] [address] [place] [phone] [id number] LILI LOUIS Self - patient is the insured [employer] [facility] [address] [address] [place] [address] [phone] [id number] LILI LOUIS Self - patient is the insured
--- OUTSIDE RECORDS SUMMARY | 2024-05-14 08:28 | XMS_ITS | Clinical Summary ---
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 Gender Identity Not on file Sexual Orientation Not on file Last Filed Vital Signs Vital Sign Reading Time Taken Comments Blood Pressure 132/82 11/23/2015 3:52 PM CDT Pulse 58 11/23/2015 3:52 PM CDT Temperature - - Respiratory Rate - - Oxygen Saturation - - Inhaled Oxygen Concentration - - Weight 124.7 kg (275 lb) 11/23/2015 3:52 PM CDT Height 177.8 cm (5' 10 ) 11/23/2015 3:52 PM CDT Body Mass Index 39.46 11/23/2015 3:52 PM CDT Plan of Treatment Health Maintenance Due Date Last Done Comments Colorectal Cancer Screening Colonoscopy (10 Years) 1955 Hepatitis C 1973 DTaP, Tdap and Td Vaccines ( 1 - Tdap) 1974 Zoster Vaccines (1 of 2) 2005 Pneumococcal Vaccine: 65+ Ye ars (1 of 1 - PCV) 2020 COVID-19 Vaccine ( - 2023-2 5 season) 2023 Influenza Adult (#1) 2023 RSV Immunization or 60+ Years (1 - 1-dose 75+ series) 2030 Meningococcal B Vaccine Aged Out No l onger eligible based on patient's age to complete this topic Meningococcal Vaccine Aged Out No maynor lindsey eligible based on patient's age to complete this topic RSV Immunizations Under 20 Months Aged Out No longer eligible based on patient's age to complete this topic
[2024-05-14 09:07] LABS: Add Urine Microscopic? NO; Appearance Urine Clear (Clear); Bilirubin Urine Negative (Negative); Blood Urine Negative (Negative); Color Urine Yellow (Yellow); Glucose Urine UA Negative (Negative); Ketones Urine Negative (Negative); Leukocyte Esterase Ur Negative (Negative); Nitrate Urine Negative (Negative); Protein Urine Negative (Negative); Specific Grav Ur 1.015 (1.010-1.020); pH Urine 6.5 (5.0-8.0)
[2024-05-14 09:15] LABS: Hematocrit 43.9 % (37.0-46.0); Hemoglobin 13.8 g/dL (12.4-15.3); Mean Corpuscular HGB Conc 31.4 g/dL (32-36); Mean Corpuscular Hemoglobin 27.8 pg (27.0-31.0); Mean Corpuscular Volume 88.3 fL (78.0-102.0); Platelet Count Result 229 K/mm3 (150-420); Red Blood Count 4.97 M/mm3 (4.70-6.10); Red Cell Distribution Width 16.8 % (11.6-14.4); White Blood Count 5.8 K/mm3 (4.8-10.8)
[2024-05-14 09:37] LABS: Alanine Aminotransferase 18 U/L (16-63); Albumin Level 3.8 g/dL (3.4-5.0); Alkaline Phosphatase 103 U/L (46-116); Anion Gap 10 mmol/L (4-12); Aspartate Amino Transferase < 10 U/L (15-37); Bilirubin,Total 0.8 mg/dL (0.00-1.00); Blood Urea Nitrogen 17 mg/dL (7-18); CRP 0.5 mg/dL (0.0-0.9); Calcium 8.9 mg/dL (8.5-10.1); Carbon Dioxide 28 mmol/L (21-32); Chloride 106 mmol/L (98-108); Cholesterol 111 mg/dL (0-200); Creatine Kinase 108 U/L (39-308); Estimated Glomerular Filt Rate 59; Glucose 94 mg/dL (70-99); HDL Direct 40 mg/dL (40-60); LDL Cholesterol Calculated 62 mg/dL (<130); Osmolality Calculated 299 mOsm/kg (285-295); Potassium 4.4 mmol/L (3.5-5.1); Sodium 144 mmol/L (136-145); Total Protein 6.8 g/dL (6.4-8.2); Triglycerides 45 mg/dL (0-150)
[2024-05-14 09:40] LABS: Hemoglobin A1C 5.7 % (<5.7)
[2024-05-14 12:09] LABS: Erythrocyte Sedimentation Rate 5 mm/hr (0-20)
[2024-05-17 17:38] LABS: Red Blood Cell Folate 429 ng/mL RBC (>280)
== END 2024-05-14 08:16 | disposition home or self-care (01) ==
LOC: CHSLAB 08:18
PROVIDERS: PCP Internal Medicine; Visit Provider Internal Medicine Rheumatology
DX: I10 Essential (primary) hypertension (principal); E78.2 Mixed hyperlipidemia; E11.65 Type 2 diabetes mellitus with hyperglycemia; L40.50 Arthropathic psoriasis, unspecified
CPT/HCPCS: 36415; 80053; 80061; 81003; 82550; 82747; 83036; 85027; 85652; 86140

== ENCOUNTER 2024-06-08 09:52 | Outpatient (CLI) | payer MEDICARE, SELFPAY ==
[2024-06-08 10:20] LABS: Hematocrit 42.8 % (37.0-46.0); Hemoglobin 13.6 g/dL (12.4-15.3)
--- OUTSIDE RECORDS SUMMARY | 2024-06-08 10:56 | XMS_ITS | Encounter Summary ---
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
--- OUTSIDE RECORDS SUMMARY | 2024-06-08 10:56 | XMS_ITS | Referral Summary ---
Author Organization [facility] Address [address] [address] Care Team Providers Care Cloth Cutter Name Role Phone Clarence Zabala MD Primary Care Provider [phone] Clarence Zabala MD Unavailable [phone] Allergies No known active allergies Medications atorvastatin [...] (08/29/2020): Added automatically from request for surgery [id number] Pneumothorax 08/17/2020 Overview (08/17/2020): Added automatically from request for surgery [id number] Resolved Problems Problem Noted Date Diagnosed Date [...] on file Medical Devices Implanted Type Area Jet Worker Device Identifier Shelf Expiration Date Model / Serial / Lot [employer] Simplex P Radiopaque Full Dose Cement Bone Sterile 6191-1-010 - Sna - [id number] Implanted:Qty: 1 on 12/18/2022 by Jl Encarnacion MD at [facility] Bone Cement [employer] 05/01/2023 6191-1-0 10 / NA / [id number] Description:Implant Pause pe rformed [employer] Perform Cortiloc 40mm Peg Shoulder Large Component Glenoid [id number] - [id number] - [id number] Implanted:Qty: 1 on 12/18/2022 by Jl Encarnacion MD at [facility] Other - see comments Left: Shoulder [employer] [id number] 02/27/2027 [id number] / [id number] 1 / Description:Implant Pause pe rformed [employer] Tray Stem Humeral Shoulder Reverse Aequalis Perform Dwx3ss - Sna - [id number] Implanted:Qty: 1 on 12/18/2022 by Jl Encarnacion MD at [facility] Other - see comments Left: Shoulder [employer] [id number] 04/29/2027 DWX3SS / PAT / [id number] Description:Implant Pause pe rformed [employer] Sanitary Landfill Operator Perform Low Offset Modular Humeral Head Ti Ooo809 - Sna - [id number] Implanted:Qty: 1 on 12/18/2022 by Jl Encarnacion MD at [facility] Other - see comments Left: Shoulder [employer] [id number] 05/17/2027 [id number] / NA / [id number] Description:Implant Pause pe rformed [employer] Head Perform Cocr Modular Humeral Nle2819 - Sna - [id number] Implanted:Qty: 1 on 12/18/2022 by Jl Encarnacion MD at [facility] Other - see comments Left: Shoulder [email or web address] [id number] 05/03/2027 [id number] / NA / [id number] 1 Description:Implant Pause pe rformed Procedures Procedure [...] MD LAB BLOOD ORDERABLES Final R esult [facility] [address] [facility] Department [place] [address] * (ABNORMAL) Hemoglobin A1c (12/06/2022 [...] and children were not included. (Diabetes Care 31:4548-4280, 2008). The eAG is not equivalent to a fasting glucose. Blood 12/06/2022 10:3 1 AM CDT 12/06/2022 11:05 AM CDT Melina Baer NP LAB BLOOD ORDERABLES Final Result Performing Organization Address City/State/ZIP Co fl Phone Number [facility] [address] [facility] [place] [address] from Last 3 Months or Most Recently Relevant to Health Maintenance Insurance MEDICARE AETNA SENIOR SUPPLEMENT MEDICARE T SENIOR SUPPLEMENT MEDICARE AETNA SENIOR SUPPLEMENT MEDICARE AETNA Advance Directives For more information, please contact: [phone] * Full Code (Latest Code Status on File) Date Activated Date Inactivated Comments 12/20/2022 2:42 PM 12/21/2022 4:22 PM * Full Code Date Activated Date Inactivated Comments 12/18/2022 2:54 PM 12/19/2022 8:56 PM Care Teams Cloth Cutter Relationship Specialty Start Date End Date Clarence Zabala MD [address] [place] [address] PCP - General Internal Medicine 12/06/22 Clarence Zabala MD [address] [place] [address] 12/06/22
--- OUTSIDE RECORDS SUMMARY | 2024-06-08 10:56 | XMS_ITS | Data Portability ---
Author Organization [facility], [address] Neurology ([place]) Address [address] [address] Care Team Providers Care Shoe Turner Name Role Phone WILFRED AGUILERA Primary Care [...] instructions recorded. Reason for Referral None Reported. Results Created Date Observation Date Name Description Value Unit Range Abnormal Flag Note LastModifiedBy Organization Detail LastModifiedTime Result Notes None recorded. Problems Name Problem SNOMED Code Status Onset Date Resolution Date Notes Provider Name and Address Organization Details Recorded Time Psoriatic arthritis 697294574 Active 2023 Emre White MD [address] [place], [address], [facility] 12:13:25 Plaque psoriasis 055724667 Active 2023 Emre White MD [address] [place] [address], [address], [facility] 4 12:13:33 Degenerative joint disease involving multiple joints 521825888 Active 2023 Emre White MD [address] [place] [address], [address], [facility] 4 12:13:41 Problem Notes None recorded. Procedures [...] active Not Available Not Available Not Avai lable metformin ER 500 mg tablet,exten ded release [...] Updated DateTime 4 177.8 cm 36.3 kg/m2 929045. 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 [email or web address] Information not available 02/23/2024 How Many [...] available 2023 12:11:25 Medical History Condition Response Diabetes Y Anxiety Disorder N Bleeding Disorder N Attention-deficit Hyperactivity Disorder N High Blood Pressure Y Arthritis Y Hyperlipidemia N Cancer N Stroke N Thyroid Problems N Asthma N Depression N COPD N Anemia N Seizures N Heart Disease N Fibromyalgia N Osteoporosis N Kidney Disease N Past Encounters Encounter ID Performer Location Encounter Start Date Encounter Closed Date Diagnosis/Indication Diagnosis SNOMED-CT Code Diagnosis ICD10 Code Diagnosis Note [id number] Emre White MD [address] [place] [address] Rheumatol ogy ([place]) [address] [place] [address],[address] [place] [address] 03/01/2024 11:25:31 03/01/2024 18:18:08 Psoriatic arthritis 891345819 L40.59 Plaque psoriasis 3799411 09 L40.0 Degenerati ve joint disease involving multiple joints 690312595 M15.9 Health Concerns Section Related Observation LastModified by Organization Detai ls LastModified Time None Recorded Concern Status LastModified by Organization Details LastModified Time None Recorded Advance Directives Directive N: Payers Encounter Date Sequence Insurance Name Policy Number Policy Frazier Covered Member ID Frazier Member ID Guarantor Name 03/01/2024 1 [place] Raul Kirby [id number] Raul Kirby 03/01/2024 2 AETNA (MEDICARE SUPPLEMENT) Raul Kirby [id number] Raul Kirby Notes Date Note Type Note Provider Name [...] on his feet. 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 He denies any issues with renal calculi, gross hematuria, bleeding from the nares or gums, numbness or tingling. His energy level is normal. Appetite is normal.aster Alvarez a 68 year oldmalepresenting for care. Emre White MD [address] [place] [address], [address], [facility] 03/01/2024 20:54:46
--- OUTSIDE RECORDS SUMMARY | 2024-06-08 10:56 | XMS_ITS | Clinical Summary ---
Author Organization [facility] Address [address] [address] Care Team Providers Care Superintendent Electric Power Name Role Phone Clarence Zabala MD Primary Care Provider [phone] Clarence Zabala MD Unavailable [phone] Allergies No known active allergies Medications atorvastatin [...] (08/29/2020): Added automatically from request for surgery [id number] Pneumothorax 08/17/2020 Overview (08/17/2020): Added automatically from request for surgery [id number] Resolved Problems Problem Noted Date Diagnosed Date [...] 11/03, 09/09/2015 Medical Devices Implanted Type Area Reporting Consultant Device Identifier Shelf Expiration Date Model / Serial / Lot [employer] Simplex P Radiopaque Full Dose Cement Bone Sterile 6191-1-010 - Sna - [id number] Implanted:Qty: 1 on 12/18/2022 by Jl Encarnacion MD at [facility] Bone Cement [employer] 05/01/2023 6191-1-0 10 / NA / [id number] Description:Implant Pause pe rformed [employer] Perform Cortiloc 40mm Peg Shoulder Large Component Glenoid [id number] - [id number] - [id number] Implanted:Qty: 1 on 12/18/2022 by Jl Encarnacion MD at [facility] Other - see comments Left: Shoulder [employer] [id number] 02/27/2027 [id number] / [id number] 1 / Description:Implant Pause pe rformed [employer] Tray Stem Humeral Shoulder Reverse Aequalis Perform Dwx3ss - Sna - [id number] Implanted:Qty: 1 on 12/18/2022 by Jl Encarnacion MD at [facility] Other - see comments Left: Shoulder [employer] [id number] 04/29/2027 DWX3SS / PAT / [id number] 5 Description:Implant Pause pe rformed [employer] Erection Shop Supervisor Perform Low Offset Modular Humeral Head Ti Bpi635 - Sna - [id number] Implanted:Qty: 1 on 12/18/2022 by Jl Encarnacion MD at [facility] Other - see comments Left: Shoulder [employer] [id number] 05/17/2027 [id number] / PAT / [id number] 4 Description:Implant Pause pe rformed [employer] Head Perform Cocr Modular Humeral Dnf1433 - Sna - [id number] Implanted:Qty: 1 on 12/18/2022 by Jl Encarnacion MD at [facility] Other - see comments Left: Shoulder [employer] [id number] 05/03/2027 [id number] / NA / [id number] 1 Description:Implant Pause pe rformed Procedures Procedure [...] MD LAB BLOOD ORDERABLES Final R esult [facility] [id number] [facility]. [place] [address] * (ABNORMAL) Hemoglobin A1c (12/06/2022 [...] and children were not included. (Diabetes Care 31:4642-2842, 2008). The eAG is not equivalent to a fasting glucose. Blood 12/06/2022 10:3 1 AM CDT 12/06/2022 11:05 AM CDT Melina Baer NP LAB BLOOD ORDERABLES Final Result [facility] [id number] [facility]. [place] [address] from Last 3 Months or Most Recently Relevant to Health Maintenance Insurance MEDICARE AETNA SENIOR SUPPLEMENT MEDICARE T SENIOR SUPPLEMENT MEDICARE AETNA SENIOR SUPPLEMENT MEDICARE AETNA Advance Directives For more information, please contact: [phone] * Full Code (Latest Code Status on File) Date Activated Date Inactivated Comments 12/20/2022 2:42 PM 12/21/2022 4:22 PM * Full Code Date Activated Date Inactivated Comments 12/18/2022 2:54 PM 12/19/2022 8:56 PM Care Teams Superintendent Electric Power Relationship Specialty Start Date End Date Clarence Zabala MD [address] [place] [address] PCP - General Internal Medicine 12/06/22 Clarence Zabala MD [address] [place] [address] 12/06/22
--- OUTSIDE RECORDS SUMMARY | 2024-06-08 10:56 | XMS_ITS | Patient Health Record ---
Author Organization [facility] Address [address] [place], [place] [address] Care Team Providers Care Security Auditor Name Role Phone CATALINA GREENE Unavailable [phone] Elsi Zabala Unavailable Unavailable Allergies No Known Allergies Reason For Referral No Information Social History Tobacco Use: Social History Observation Description Date Details (start date - stop date) Former Smoker NA - NA Tobacco Control (Standard) Question Answer Notes Tobacco use: Former smoker Plan Of Treatment No Information Insurance Providers Payer Name Payer Address Payer Phone Subscriber Number Group Number Insured Name Patient Relationship to Insured Coverage Start Date Coverage End Date Medicare Part B [place] [address] [place] [phone] [id number] LILI LOUIS Self - patient is the insured AETNA [facility] [address] [address] [place] [address] [id number] LILI LOUIS Self - patient is the insured
--- OUTSIDE RECORDS SUMMARY | 2024-06-08 10:56 | XMS_ITS ---
Author Organization [facility] Address [address] [facility] [address] [place], [place] [address] Care Team Providers Care Food Service Hotel Runner Name Role Phone RAMONA CATALINA Unavailable [phone] Elsi Zabala Unavailable Unavailable Allergies No Known Allergies REASON FOR VISIT *Possible ingrown nail Social History Tobacco Use: Social History Observation Description Date Details (start date - stop date) Former Smoker NA - NA Tobacco Control (Standard) Question Answer Notes Tobacco use: Former smoker Vital Signs Height 70.00 in 04/25/2023 Weight 280 lbs 04/25/2023 BMI 40.17 kg/m2 04/25/2023 Height-cm 177.80 cm 04/25/2023 Weight-kg 127.01 kg 04/25/2023 Encounters Encounter Location Date Provider Diagnosis [facility] [address] [place], [place] [id number] 04/25/2023 CATALINA VAN Ingrowing nail L60.0 ; [...] for infection or recurrence. Progress Notes * RICK LOUISOB:1955 (69 yo M)Acc No.[id number]:04/25/2023 Patient: LILI UNGER Provider: Eliel Van DPM :1955 A ge:68 Y S ex:Male Date:04/25/2023 [facility] Subjective: * Chief Complaints: * * Possible ingrown nail * HPI: H PI: New Complaint E [...] m ole changes. * Medical History: * Surgical History: * Hospitalization/Major Diagno stic Procedure: * Family History: F ather: PRN - Father: :: Arthritis,,known absent . M other: PRN - Mother: :: Arthritis,,known absent . * Social History: T obacco Use: T obacco Control (Standard) T obacco use: F ormer smoker M igrated Social History: M igrated Social History: Smoking Status : Former tobacco user , History of tobacco use :. * Medications: N one * Allergies: N .K.D.A.no[Allergies Verified] Objective: * Vitals: W t:280lbs, Wt-k.01 kg, [...] . C ellulitis of left toe - L03.032? 3. P ain in left toe(s) - M79.675 Plan: * Treatment: * Immunizations: Immunization record has been reviewed and updated. * Procedure Codes: * Billing Information: * Visit Code: 84659 Office Visit, Est Pt., Level 3. * Procedure Codes: * Sign off status: Completed true * Provider: Eliel Van DPM Date: 0 04/25/2023 Generated for Malinda singer/Atiya/eTransmitting on: 0 06/08/2024 10:56 AM CDT History and Physical Notes * [...]
--- OUTSIDE RECORDS SUMMARY | 2024-06-08 10:56 | XMS_ITS | Clinical Summary ---
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
[2024-06-08 11:10] LABS: Prostate Specific Antigen 2.4 ng/mL (< OR = 4.0)
== END 2024-06-08 09:53 | disposition home or self-care (01) ==
LOC: CHSLAB 09:56
PROVIDERS: PCP Internal Medicine
DX: E29.1 Testicular hypofunction (principal); N42.9 Disorder of prostate, unspecified
CPT/HCPCS: 36415; 82670; 84153; 84402; 84403; 85014; 85018

== ENCOUNTER 2024-12-03 08:08 | Outpatient (CLI) | payer MEDICARE, SELFPAY ==
--- OUTSIDE RECORDS SUMMARY | 2024-12-03 08:14 | XMS_ITS | Clinical Summary ---
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 Gender Identity Not on file Sexual Orientation Not on file Last Filed Vital Signs Vital Sign Reading Time Taken Comments Blood Pressure 132/82 11/23/2015 3:52 PM CDT Pulse 58 11/23/2015 3:52 PM CDT Temperature - - Respiratory Rate - - Oxygen Saturation - - Inhaled Oxygen Concentration - - Weight 124.7 kg (275 lb) 11/23/2015 3:52 PM CDT Height 177.8 cm (5' 10) 11/23/2015 3:52 PM CDT Body Mass Index 39.46 11/23/2015 3:52 PM CDT Plan of Treatment Health Maintenance Due Date Last Done Comments Colorectal Cancer Screening Colonoscopy (10 Years) 1955 Hepatitis C 1973 DTaP, Tdap and Td Vaccines ( 1 - Tdap) 1974 Pneumococcal Vaccine: 50+ Ye ars (1 of 1 - PCV) 2005 Zoster Vaccines (1 of 2) 2005 COVID-19 Vaccine ( - 2023-2 5 season) 2024 RSV Immunization or 60+ Years (1 - [...]
--- OUTSIDE RECORDS SUMMARY | 2024-12-03 08:14 | XMS_ITS | Clinical Summary ---
Author Organization [facility] Address [address] [address] Care Team Providers Care Chain Sales Consultant Name Role Phone Clarence Zabala MD Primary Care Provider [phone] Clarence Zabala MD Unavailable [phone] Allergies No known active allergies Medications atorvastatin [...] (08/29/2020): Added automatically from request for surgery [id number] Pneumothorax 08/17/2020 Overview (08/17/2020): Added automatically from request for surgery [id number] Resolved Problems Problem Noted Date Diagnosed Date [...] obesity (HCC) DM2 (diabetes mellitus, type 2) Glenohumeral arthritis HTN (hypertension) HLD (hyperlipidemia) 12/06/2022 [...] 2:49 PM CDT Height 175.3 cm (5' 9.02) 12/20/2022 2:49 PM CD T Body Mass [...] Tdap) 04/19/2020 04/19/2010 Hemoglobin A1C 06/07/2023 12/06/2022 Fall Risk Assessment 12/22/2023 12/21/2022 eGFR 12/22/2023 12/21/2022, 12/01, 12/19/2022, Additional history exists Pneumococcal vaccine 65+ (3 of 3 - PCV20 or PCV21) 04/20/2024 04/20/2019, 08/12/2018 Covid-19 Vaccine (4 - 2024-2 6 season) 2024 02/22/2021, 05/12/2020, 04/21/2020 Influenza Vaccine (#1) 2024 3, 01/02/2022, 12/01/2019, Additional history exists Zoster Vaccine Completed 02/04/2020, 11/03, 09/09/2015 Medical Devices Implanted Type Area Treasury Specialist Device Identifier Shelf Expiration Date Model / Serial / Lot [employer] Simplex P Radiopaque Full Dose Cement Bone Sterile 6191-1-010 - Sna - [id number] Implanted:Qty: 1 on 12/18/2022 by Jl Encarnacion MD at [facility] Bone Cement [employer] 05/01/2023 6191-1-0 10 / NA / [id number] Description:Implant Pause pe rformed [employer] Perform Cortiloc 40mm Peg Shoulder Large Component Glenoid [id number] - [id number] - [id number] Implanted:Qty: 1 on 12/18/2022 by Jl Encarnacion MD at [facility] Other - see comments Left: Shoulder [employer] [id number] 02/27/2027 [id number] / [id number] 1 / Description:Implant Pause pe rformed [employer] Tray Stem Humeral Shoulder Reverse Aequalis Perform Dwx3ss - Sna - [id number] Implanted:Qty: 1 on 12/18/2022 by Jl Encarnacion MD at [facility] Other - see comments Left: Shoulder [employer] [id number] 04/29/2027 DWX3SS / PAT / [id number] Description:Implant Pause pe rformed [employer] Cotton Washer Perform Low Offset Modular Humeral Head Ti Szz734 - Sna - [id number] Implanted:Qty: 1 on 12/18/2022 by Jl Encarnacion MD at [facility] Other - see comments Left: Shoulder [employer] [id number] 05/17/2027 [id number] / PAT / [id number] Description:Implant Pause pe rformed [employer] Head Perform Cocr Modular Humeral Hlx2886 - Sna - [id number] Implanted:Qty: 1 on 12/18/2022 by Jl Encarnacion MD at [facility] Other - see comments Left: Shoulder [employer] [id number] 05/03/2027 [id number] / NA / [id number] 1 Description:Implant Pause pe rformed Procedures Procedure [...] MD LAB BLOOD ORDERABLES Final R esult [facility] [address] [facility]. [place] [address] * (ABNORMAL) Hemoglobin A1c (12/06/2022 10:31 AM CDT) [facility] Hgb A1C 7.0(H) 4.0 - 5.6 % [facility]NE[facility] Estimated Average Glucose 154 mg/dL [facility] Comment: The ADA recommends reporting an estimated Average Glucose (eAG) with all Hemoglobin A1c results using the equation derived from a study of 507 normal and diabetic adults. Minority populations were underrepresented and children were not included. (Diabetes Care 31:9488-9839, 2008). The eAG is not equivalent to a fasting glucose. Blood 12/06/2022 10:3 1 AM CDT 12/06/2022 11:05 AM CDT Melina Baer NP LAB BLOOD ORDERABLES Final Result [facility] [address] [facility]. Department [place] [address] from Last 3 Months or Most Recently Relevant to Health Maintenance Insurance MEDICARE AETNA SENIOR SUPPLEMENT MEDICARE T SENIOR SUPPLEMENT MEDICARE AETNA SENIOR SUPPLEMENT MEDICARE AETNA Advance Directives For more information, please contact: [phone] * Full Code (Latest Code Status on File) Date Activated Date Inactivated Comments 12/20/2022 2:42 PM 12/21/2022 4:22 PM * Full Code Date Activated Date Inactivated Comments 12/18/2022 2:54 PM 12/19/2022 8:56 PM Care Teams Chain Sales Consultant Relationship Specialty Start Date End Date Clarence Zabala MD [address] [place] [address] PCP - General Internal Medicine 12/06/22 Clarence Zabala MD [address] [place] [address] 12/06/22
--- OUTSIDE RECORDS SUMMARY | 2024-12-03 08:14 | XMS_ITS | Encounter Summary ---
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
--- OUTSIDE RECORDS SUMMARY | 2024-12-03 08:14 | XMS_ITS | Patient Health Record ---
Author Organization [facility] Address [address] [place], [place] [id number] Care Team Providers Care Cable Installer Name Role Phone CATALINA GREENE Unavailable [phone] Elsi Zabala Unavailable Unavailable Allergies No Known [...] Date Coverage End Date Medicare Part B [place] [address] [place] [address] [id number] LILI LOUIS Self - patient is the insured AETNA [facility] [address] [address] [facility] [place] [address] [id number] LILI LOUIS Self - patient is the insured
[2024-12-03 08:22] LABS: Hematocrit 43.4 % (37.0-46.0); Hemoglobin 14.2 g/dL (12.4-15.3); Mean Corpuscular HGB Conc 32.7 g/dL (32-36); Mean Corpuscular Hemoglobin 30.3 pg (27.0-31.0); Mean Corpuscular Volume 92.7 fL (78.0-102.0); Platelet Count Result 200 K/mm3 (150-420); Red Blood Count 4.68 M/mm3 (4.70-6.10); White Blood Count 6.8 K/mm3 (4.8-10.8)
[2024-12-03 08:23] LABS: Add Urine Microscopic? NO; Appearance Urine Clear (Clear); Glucose Urine UA Negative (Negative); Leukocyte Esterase Ur Negative (Negative); Nitrate Urine Negative (Negative); Specific Grav Ur 1.020 (1.010-1.020)
[2024-12-03 08:39] LABS: Hemoglobin A1C 5.9 % (<5.7)
[2024-12-03 08:50] LABS: Alanine Aminotransferase 21 U/L (6-50); Albumin Level 4.1 g/dL (3.5-5.1); Alkaline Phosphatase 71 U/L (38-126); Anion Gap 10 mmol/L (4-12); Aspartate Amino Transferase 22 U/L (17-59); Bilirubin,Total 1.1 mg/dL (0.2-1.3); Blood Urea Nitrogen 21 mg/dL (9-20); Calcium 9.5 mg/dL (8.4-10.2); Carbon Dioxide 25 mmol/L (22-30); Chloride 108 mmol/L (98-107); Cholesterol 133 mg/dL (0-200); Creatine Kinase 76 U/L (55-170); Estimated Glomerular Filt Rate > 60; Glucose 99 mg/dL (65-110); HDL Direct 40 mg/dL; Osmolality Calculated 299 mOsm/kg (285-295); Potassium 4.5 mmol/L (3.4-5.0); Sodium 143 mmol/L (137-145); Total Protein 7.0 g/dL (6.3-8.2); Triglycerides 95 mg/dL (<150)
[2024-12-03 08:51] LABS: MALB Creatinine Ratio 9.7 mg/g (0-30)
[2024-12-03 09:20] LABS: Prostate Specific Antigen 2.6 ng/mL (< OR = 4.0)
== END 2024-12-03 08:09 | disposition home or self-care (01) ==
LOC: CHSLAB 08:09
PROVIDERS: PCP Internal Medicine; Visit Provider Internal Medicine
DX: E11.9 Type 2 diabetes mellitus without complications (principal); I10 Essential (primary) hypertension; E78.2 Mixed hyperlipidemia; Z12.5 Encounter for screening for malignant neoplasm of prostate
CPT/HCPCS: 36415; 80053; 80061; 81003; 82043; 82550; 83036; 84153; 85027; G0103

== ENCOUNTER 2024-12-15 12:55 | Outpatient (CLI) | payer MEDICARE, SELFPAY ==
[2024-12-15 13:10] LABS: Hematocrit 41.7 % (37.0-46.0); Hemoglobin 13.8 g/dL (12.4-15.3)
--- OUTSIDE RECORDS SUMMARY | 2024-12-15 14:50 | XMS_ITS | Patient Health Record ---
Author Organization [facility] Address [address] [place], [place] [address] Care Team Providers Care Kit Planner Name Role Phone CATALINA GREENE Unavailable [phone] Elsi Zabala Unavailable Unavailable Allergies No Known [...] [place] [address] [place] [address] [id number] LILI LOUIS Self - patient is the insured AETNA [facility] [address] [address] [place] [address] [id number] LILI LOUIS Self - patient is the insured
--- OUTSIDE RECORDS SUMMARY | 2024-12-15 14:50 | XMS_ITS | Clinical Summary ---
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
--- OUTSIDE RECORDS SUMMARY | 2024-12-15 14:50 | XMS_ITS | Encounter Summary ---
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
--- OUTSIDE RECORDS SUMMARY | 2024-12-15 14:50 | XMS_ITS | Clinical Summary ---
Author Organization [facility] Address [address] [address] Care Team Providers Care Conveyor Belt Installer Name Role Phone Clarence Zabala MD Primary Care Provider [phone] Clarence Zabala MD Unavailable [phone] Allergies No known active allergies Medications atorvastatin [...] (08/29/2020): Added automatically from request for surgery [id number] Pneumothorax 08/17/2020 Overview (08/17/2020): Added automatically from request for surgery [id number] Resolved Problems Problem Noted Date Diagnosed Date [...] 11/03, 09/09/2015 Medical Devices Implanted Type Area Quality Rep Device Identifier Shelf Expiration Date Model / Serial / Lot [employer] Simplex P Radiopaque Full Dose Cement Bone Sterile 6191-1-010 - Sna - [id number] Implanted:Qty: 1 on 12/18/2022 by Jl Encarnacion MD at [facility] Bone Cement [employer] 05/01/2023 6191-1-0 10 / NA / [id number] Description:Implant Pause pe rformed [employer] Perform Cortiloc 40mm Peg Shoulder Large Component Glenoid [id number] - [id number] - [id number] Implanted:Qty: 1 on 12/18/2022 by Jl Encarnacion MD at [facility] Other - see comments Left: Shoulder [employer] [id number] 02/27/2027 [id number] / [id number] / Description:Implant Pause pe rformed [employer] Tray Stem Humeral Shoulder Reverse Aequalis Perform Dwx3ss - Sna - [id number] Implanted:Qty: 1 on 12/18/2022 by Jl Encarnacion MD at [facility] Other - see comments Left: Shoulder [employer] [id number] 04/29/2027 [id number] / PAT / [id number] Description:Implant Pause pe rformed [employer] Retail Assistant Store Manager Perform Low Offset Modular Humeral Head Ti Qoh838 - Sna - [id number] Implanted:Qty: 1 on 12/18/2022 by Jl Encarnacion MD at [facility] Other - see comments Left: Shoulder [employer] [id number] 05/17/2027 [id number] / PAT / [id number] Description:Implant Pause pe rformed [employer] Head Perform Cocr Modular Humeral [id number] - Sna - [id number] Implanted:Qty: 1 on 12/18/2022 by Jl Encarnacion MD at [facility] Other - see comments Left: Shoulder [employer] [id number] 05/03/2027 [id number] / NA / [id number] Description:Implant Pause pe rformed Procedures Procedure [...] BLOOD ORDERABLES Final R esult [facility] [address] [facility]. Department [place] [employer] [place] [address] * (ABNORMAL) Hemoglobin A1c (12/06/2022 10:31 AM CDT) [facility] Hgb A1C 7.0(H) 4.0 - 5.6 % [facility] DONNELLY Estimated Average Glucose 154 mg/dL TERESA DONNELLY Comment: The ADA recommends reporting an estimated Average Glucose (eAG) with all Hemoglobin A1c results using the equation derived from a study of 507 normal and diabetic adults. Minority populations were underrepresented and children were not included. (Diabetes Care 31:1196-2795, 2008). The eAG is not equivalent to a fasting glucose. Blood 12/06/2022 10:3 1 AM CDT 12/06/2022 11:05 AM CDT Melina Baer NP LAB BLOOD ORDERABLES Final Result [facility] [address] [facility]. Department [place] [address] from Last 3 Months or Most Recently Relevant to Health Maintenance Insurance MEDICARE [employer] SENIOR SUPPLEMENT MEDICARE T SENIOR SUPPLEMENT MEDICARE AETNA SENIOR SUPPLEMENT MEDICARE AET[employer] Advance Directives For more information, please contact: [phone] * Full Code (Latest Code Status on File) Date Activated Date Inactivated Comments 12/20/2022 2:42 PM 12/21/2022 4:22 PM * Full Code Date Activated Date Inactivated Comments 12/18/2022 2:54 PM 12/19/2022 8:56 PM Care Teams Conveyor Belt Installer Relationship Specialty Start Date End Date Clarence Zabala MD [address] [place] [address] PCP - General Internal Medicine 12/06/22 Clarence Zabala MD [address] [place] [address] 12/06/22
[2024-12-15 15:39] LABS: Prostate Specific Antigen 2.7 ng/mL (< OR = 4.0)
[2024-12-23 19:08] LABS: Estradiol, Sensitive 17.7 pg/mL (8.0-35.0)
[2025-01-01 21:06] LABS: Testosterone, Total, LC/MS 909 ng/dL (.)
== END 2024-12-15 12:56 | disposition home or self-care (01) ==
LOC: CHSLAB 12:58
PROVIDERS: PCP Internal Medicine; Visit Provider Nurse Practitioner Family
DX: E29.1 Testicular hypofunction (principal); Z12.5 Encounter for screening for malignant neoplasm of prostate
CPT/HCPCS: 36415; 82670; 84153; 84403; 85014; 85018; G0103

== ENCOUNTER 2024-12-30 08:16 | Outpatient (CLI) | payer MEDICARE, SELFPAY ==
--- NOTE | ~2024-12-30 | US_ITS ---
ULTRASOUND ABDOMEN LIMITED (RIGHT UPPER QUADRANT) Clinical History: RUQ PAIN Comparison: None Technique: Right upper quadrant sonography Findings: Liver: Normal size. Mildly echogenic. No intrahepatic biliary ductal dilatation. Normal hepatopedal flow main portal vein. 17 mm hyperechoic focus right lobe most consistent with hemangioma. Common Duct: Normal caliber. 5 mm. Gallbladder: No stones. No wall thickening. No pericholecystic fluid. Pancreas: Unremarkable. Right kidney: Several cysts. Retrohepatic IVC: Unremarkable. IMPRESSION: 1. No acute findings. Reviewed, dictated and finalized at location R. IMPRESSION: 1. No acute findings.
--- NOTE | ~2024-12-30 | CT_ITS ---
EXAMINATION:CT lung screening DATE: 12/30/2024 08:50 INDICATION: Personal history of nicotine dependence. TECHNIQUE: Computed tomography (CT) of the chest was performed without intravenous contrast. Automated exposure control and iterative reconstruction technique were employed. The dose-length product (DLP) was 124.58 mGy-cm. COMPARISON: Chest CT 12/15/2023 FINDINGS: There is mild emphysema. There is mild atelectasis bilaterally. There is a stable 5 mm nodule in left lower lobe. A calcified right lung nodule and calcified right hilar and mediastinal lymph nodes are consistent with old granulomatous disease. No pleural effusion. The heart size is normal. There are coronary artery calcifications. No pericardial effusion. Calcifications in the spleen are consistent with old granulomatous disease. There are cysts in the kidneys measuring up to 4.7 cm on the right. There is a total left shoulder arthroplasty. There is moderate thoracic spondylosis. IMPRESSION: 1. Lung-RADS category 2: Benign appearance or behavior. Continue annual screening with noncontrast low-dose chest CT in 12 months. Reviewed, dictated and finalized at location E. IMPRESSION: 1. Lung-RADS category 2: Benign appearance or behavior. Continue annual screeni ng with noncontrast low-dose chest CT in 12 months.
--- OUTSIDE RECORDS SUMMARY | 2024-12-30 08:25 | XMS_ITS | Clinical Summary ---
Author Organization [facility] Address [address] [address] Care Team Providers Care Watch Commander Name Role Phone Clarence Zabala MD Primary Care Provider [phone] Clarence Zabala MD Unavailable [phone] Allergies No known active allergies Medications atorvastatin [...] (08/29/2020): Added automatically from request for surgery [id number] Pneumothorax 08/17/2020 Overview (08/17/2020): Added automatically from request for surgery [id number] Resolved Problems Problem Noted Date Diagnosed Date Resolved Date Hyponatremia 12/20/2022 12/21/2022 Assessment & Plan (12/20/2022 3:49 PM CDT): Likely secondary to hypovolemic hyponatremia - Check urine sodium, osmolality - Gentle IVF - Repeat BMP in AM Encounters Date Type Department Care Team Description 12/21/2024 10:12 AM CDT - 12/21/2024 11:59 PM CDT Hospital Encounter [facility] Radiology at [facility] [address] [place] [address] Follow-up examination after orthopedic surgery Discharge Disposition: Discharge to home or self care 12/21/2024 10:10 AM CDT Office Visit [facility] Orth[facility] Surgery [address] [place] [address] 1[address] [place] [address] Jl Encarnacion MD Follow-up examination after orthopedic surgery (Primary Dx); Osteoarthritis of left shoulder, unspecified osteoarthritis type from Last 3 Months Surgical History Surgery Date Site/Laterality Comments HERNIA [...] AA) Screen 2020 Well Visit 65+ 2020 Hemoglobin A1C 06/07/2023 12/06/2022 Fall Risk Assessment 12/22/2023 12/21/2022 eGFR 12/22/2023 12/21/2022, 12/01, 12/19/2022, Additional history exists Pneumococcal vaccine 65+ (3 of 3 - PCV20 or PCV21) 04/20/2024 04/20/2019, 08/12/2018 Covid-19 Vaccine (4 - 2024-2 6 season) 2024 02/22/2021, 05/12/2020, 04/21/2020 Influenza Vaccine (#1) 2024 , 01/02/2022, 12/01/2019, Additional history exists DTaP/Tdap/Td Vaccine (3 - Td or Tdap) 09/03/2033 09/04/2023, 04/19/2010 Zoster Vaccine Completed 02/04/2020, 11/03, 09/09/2015 Medical Devices Implanted Type Area Phlebotomy Supervisor Device Identifier Shelf Expiration Date Model / Serial / Lot [employer] Simplex P Radiopaque Full Dose Cement Bone Sterile 6191-1-010 - Sna - [id number] Implanted:Qty: 1 on 12/18/2022 by Jl Encarnacion MD at [facility] Bone Cement [employer] 05/01/2023 6191-1-0 10 / NA / [id number] Description:Implant Pause pe rformed [employer] Perform Cortiloc 40mm Peg Shoulder Large Component Glenoid [id number] - [id number] - [id number] Implanted:Qty: 1 on 12/18/2022 by Jl Encarnacion MD at [facility] Other - see comments Left: Shoulder [employer] [id number] 02/27/2027 [id number] / [id number] / Description:Implant Pause pe rformed [employer] Tray Stem Humeral Shoulder Reverse Aequalis Perform Dwx3ss - Sna - [id number] Implanted:Qty: 1 on 12/18/2022 by Jl Encarnacion MD at [facility] Other - see comments Left: Shoulder [employer] [id number] 04/29/2027 [id number] / NA / [id number] Description:Implant Pause pe rformed [employer] Muffler Installer Perform Low Offset Modular Humeral Head Ti Nis743 - Sna - [id number] Implanted:Qty: 1 on 12/18/2022 by Jl Encarnacion MD at [facility] Other - see comments Left: Shoulder [employer] [id number] 05/17/2027 [id number] / NA / [id number] Description:Implant Pause pe rformed [employer] Head Perform Cocr Modular Humeral [id number] - Sna - [id number] Implanted:Qty: 1 on 12/18/2022 by Jl Encarnacion MD at [facility] Other - see comments Left: Shoulder [employer] [id number] 05/03/2027 [id number] / NA / [id number] Description:Implant Pause pe rformed Procedures Procedure Name Priority Date/Time Associated Diagnosis Comments XR SHOULDER LEFT 2 OR MORE VIEWS Schedule Routine, Read Routine (OP Routine) 12/21/2024 10:17 AM CDT Follow-up examination after orthopedic surgery EGFR Routine 12/21/2022 4:21 AM CDT HEMOGLOBIN A1C Routine 12/06/2022 10:31 AM CDT Preoperative testing Type 2 diabetes mellitus without complication, without long-term current use of insulin (HCC) from Last 3 Months or Most Recently Relevant to Health Maintenance Results * XR Shoulder Left 2 or More Views (12/21/2024 10:17 AM CDT) Anatomical Region Laterality Modality Upper Extremities, Shoulder Left Comp uted Radiography 12/21/2024 10:4 9 AM CDT Impressions 12/21/2024 10:49 AM CDT 1. Unchanged anatomic left total shoulder arthroplasty in near-anatomic alignment. Electronically signed by: MD Jose Guadalupe Hernandes 12/21/2024 10:49 AM CDT EXAMINATION: XR SHOULDER LEFT 2 OR MORE VIEWS HISTORY: Left shoulder pain FINDINGS: Comparison is made with radiographs dated 12/23/2023. Unchanged anatomic left total shoulder arthroplasty in near-anatomic alignment. No periprosthetic fracture or osteolysis. No component migration. Mild left acromioclavicular joint osteoarthritis. Procedure Note Daniel Olmedo MD - 12/21/2024 EXAMINATION: XR SHOULDER LEFT 2 OR MORE VIEWS HISTORY: Left shoulder pain FINDINGS: Comparison is made with radiographs dated 12/23/2023. Unchanged anatomic left total shoulder arthroplasty in near-anatomic alignment. No periprosthetic fracture or osteolysis. No component migration. Mild left acromioclavicular joint osteoarthritis. IMPRESSION: 1. Unchanged anatomic left total shoulder arthroplasty in near-anatomic alignment. Electronically signed by: Daniel Olmedo MD Jl Encarnacion MD IMG XR PROCEDURES Fin al Result * eGFR (12/21/2022 4:21 AM CDT) eGFR [...] BLOOD ORDERABLES Final R esult [facility] [address] [facility] [place] [address] * (ABNORMAL) Hemoglobin A1c (12/06/2022 10:31 AM CDT) Hgb A1C 7.0(H) 4.0 - 5.6 % TERESA DONNELLY Estimated Average Glucose 154 mg/dL TERES[facility] DONNELLY Comment: The ADA recommends reporting an estimated Average Glucose (eAG) with all Hemoglobin A1c results using the equation derived from a study of 507 normal and diabetic adults. Minority populations were underrepresented and children were not included. (Diabetes Care 31:3735-6070, 2008). The eAG is not equivalent to a fasting glucose. Blood 12/06/2022 10:3 1 AM CDT 12/06/2022 11:05 AM CDT Melina Baer NP LAB BLOOD ORDERABLES Final Result Performing Organization Address [facility] Phone Number [facility] [address] [facility] [place] [address] from Last 3 Months or Most Recently Relevant to Health Maintenance Insurance MEDICARE AETNA SENIOR SUPPLEMENT MEDICARE [facility] SENIOR SUPPLEMENT MEDICARE AETNA SENIOR SUPPLEMENT MEDICARE AETNA Advance Directives For more information, please contact: [phone] * Full Code (Latest Code Status on File) Date Activated Date Inactivated Comments 12/20/2022 2:42 PM 12/21/2022 4:22 PM * Full Code Date Activated Date Inactivated Comments 12/18/2022 2:54 PM 12/19/2022 8:56 PM Care Teams Watch Commander Relationship Specialty Start Date End Date Clarence Zabala MD [address] [place] [address] PCP - General Internal Medicine 12/06/22 Clarence Zabala MD [address] [place] [address] 12/06/22
--- OUTSIDE RECORDS SUMMARY | 2024-12-30 08:25 | XMS_ITS | Clinical Summary ---
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
--- OUTSIDE RECORDS SUMMARY | 2024-12-30 08:25 | XMS_ITS | Encounter Summary ---
Author Organization 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
--- OUTSIDE RECORDS SUMMARY | 2024-12-30 08:25 | XMS_ITS | Patient Health Record ---
Author Organization [facility] Address [address] [place], [place] [address] Care Team Providers Care Food Processing Scientist Name Role Phone CATALINA GREENE Unavailable [phone] Elsi Zabala Unavailable Unavailable Allergies No Known Allergies Reason For Referral No Information Social History Tobacco Use: Social History Observation Description Date Details (start date - stop date) Former Smoker NA - NA Social History Tobacco Use: Social Info Question Answer Notes Tobacco Control (Standard) Tobacco use: Former smoker Additional Details Category Social Info Options Details Migrated Social History Migrated Social History Smoking Status : Former tobacco user , History of tobacco use : Plan Of Treatment No Information Insurance Providers Payer Name Payer Address Payer Phone Subscriber Number Group Number Insured Name Patient Relationship to Insured Coverage Start Date Coverage End Date Medicare Part B [place] [address] [place] [id number] LILI LOUIS Self - patient is the insured [facility] [address] [address] [facility] [place] [address] [id number] LILI LOUIS Self - patient is the insured
[2024-12-30 08:30] LABS: Hematocrit 42.3 % (37.0-46.0); Hemoglobin 13.6 g/dL (12.4-15.3); Mean Corpuscular HGB Conc 32.2 g/dL (32-36); Mean Corpuscular Hemoglobin 29.9 pg (27.0-31.0); Mean Corpuscular Volume 93.0 fL (78.0-102.0); Platelet Count Result 221 K/mm3 (150-420); Red Blood Count 4.55 M/mm3 (4.70-6.10); White Blood Count 4.7 K/mm3 (4.8-10.8)
[2024-12-30 09:11] LABS: Magnesium 1.9 mg/dL (1.6-2.3)
[2024-12-30 09:28] LABS: Free T4 Free Thyroxine 0.82 ng/dL (0.78-2.19)
[2024-12-30 09:29] LABS: Free T3 3.38 pg/mL (2.18-3.98)
[2024-12-30 09:42] LABS: Thyroid Stimulating Hormone 1.710 uIU/mL (0.465-4.680)
== END 2024-12-30 08:17 | disposition home or self-care (01) ==
LOC: CHSIMG 08:19
PROVIDERS: PCP Internal Medicine; Visit Provider Internal Medicine
DX: Z12.2 Encounter for screening for malignant neoplasm of respiratory organs (principal); Z87.891 Personal history of nicotine dependence; R00.1 Bradycardia, unspecified; R10.11 Right upper quadrant pain; J43.9 Emphysema, unspecified; J98.11 Atelectasis; R91.8 Other nonspecific abnormal finding of lung field; N28.1 Cyst of kidney, acquired
CPT/HCPCS: 36415; 71271; 76705; 83735; 84439; 84443; 84481; 85027

== ENCOUNTER 2025-01-05 08:57 | Outpatient (CLI) | payer MEDICARE, SELFPAY ==
--- OUTSIDE RECORDS SUMMARY | 2025-01-05 09:24 | XMS_ITS | Encounter Summary ---
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
--- OUTSIDE RECORDS SUMMARY | 2025-01-05 09:24 | XMS_ITS | Clinical Summary ---
Author Organization [facility] Address [address] [place] [address] Care Team Providers Care Process Plant Operator Name Role Phone Clarence Zabala MD Primary Care Provider [phone] Clarence Zabala MD Unavailable [phone] Allergies No known active allergies Medications atorvastatin [...] (08/29/2020): Added automatically from request for surgery [id number] Pneumothorax 08/17/2020 Overview (08/17/2020): Added automatically from request for surgery [id number] Resolved Problems Problem Noted Date Diagnosed Date Resolved Date Hyponatremia 12/20/2022 12/21/2022 Assessment & Plan (12/20/2022 3:49 PM CDT): Likely secondary to hypovolemic hyponatremia - Check urine sodium, osmolality - Gentle IVF - Repeat BMP in AM Encounters Date Type Department Care Team Description 12/21/2024 10:12 AM CDT - 12/21/2024 11:59 PM CDT Hospital Encounter [facility] Radiology at [facility] [address] [place] [address] Follow-up examination after orthopedic surgery Discharge Disposition: Discharge to home or self care 12/21/2024 10:10 AM CDT Office Visit [facility] Medicine Orthopaedic Surgery [address] [place] [address] 1[address] [place] [address] Jl Encarnacion MD Follow-up examination after orthopedic [...] 11/03, 09/09/2015 Medical Devices Implanted Type Area Sweep Press Operator Device Identifier Shelf Expiration Date Model / Serial / Lot [employer] Simplex P Radiopaque Full Dose Cement Bone Sterile 6191-1-010 - Sna - [id number] Implanted:Qty: 1 on 12/18/2022 by Jl Encarnacion MD at [facility] Bone Cement [employer] 05/01/2023 6191-1-0 10 / NA / [id number] Description:Implant Pause pe rformed [employer] Perform Cortiloc 40mm Peg Shoulder Large Component Glenoid [id number] - [id number] - [id number] Implanted:Qty: 1 on 12/18/2022 by Jl Encarnacion MD at [facility] Other - see comments Left: Shoulder [employer] [id number] 02/27/2027 [id number] / [id number] 1 / Description:Implant Pause pe rformed [employer] Tray Stem Humeral Shoulder Reverse Aequalis Perform Dwx3ss - Sna - [id number] Implanted:Qty: 1 on 12/18/2022 by Jl Encarnacion MD at [facility] Other - see comments Left: Shoulder [employer] [id number] 04/29/2027 DWX3SS / NA / [id number] Description:Implant Pause pe rformed [employer] Plant Custodian Perform Low Offset Modular Humeral Head Ti Pzb756 - Sna - [id number] Implanted:Qty: 1 on 12/18/2022 by Jl Encarnacion MD at [facility] Other - see comments Left: Shoulder [employer] [id number] 05/17/2027 UTC052 / NA / [id number] Description:Implant Pause pe rformed [employer] Head Perform Cocr Modular Humeral Fue5308 - Sna - [id number] Implanted:Qty: 1 on 12/18/2022 by Jl Encarnacion MD at [facility] Other - see comments Left: Shoulder [employer] [id number] 05/03/2027 [id number] / NA / [id number] Description:Implant Pause pe rformed Procedures Procedure [...] alignment. Electronically signed by: Daniel Olmedo MD us Jl Encarnacion MD IMG XR PROCEDURES Fin [...] BLOOD ORDERABLES Final R esult [facility] [address] [facility] [place] [address] * (ABNORMAL) Hemoglobin A1c (12/06/2022 10:31 AM CDT) Hgb A1C 7.0(H) 4.0 - 5.6 % TERESA DONNELLY Estimated Average Glucose 154 mg/dL TER[facility] DONNELLY Comment: The ADA recommends reporting an estimated Average Glucose (eAG) with all Hemoglobin A1c results using the equation derived from a study of 507 normal and diabetic adults. Minority populations were underrepresented and children were not included. (Diabetes Care 31:0945-8563, 2008). The eAG is not equivalent to a fasting glucose. Blood 12/06/2022 10:3 1 AM CDT 12/06/2022 11:05 AM CDT Melina Baer NP LAB BLOOD ORDERABLES Final Result Performing Organization Address [facility] Phone Number TER[facility] [address] [facility] [place] [address] from Last 3 Months or Most Recently Relevant to Health Maintenance Insurance MEDICARE [employer] SENIOR SUPPLEMENT MEDICARE [facility] SENIOR SUPPLEMENT MEDICARE AET[employer] SENIOR SUPPLEMENT MEDICARE [facility] Address: [address] [address] [place] [address] AET[employer] Advance Directives For more information, please contact: [phone] * Full Code (Latest Code Status on File) Date Activated Date Inactivated Comments 12/20/2022 2:42 PM 12/21/2022 4:22 PM * Full Code Date Activated Date Inactivated Comments 12/18/2022 2:54 PM 12/19/2022 8:56 PM Care Teams Process Plant Operator Relationship Specialty Start Date End Date Clarence Zabala MD [address] [place] [address] PCP - General Internal Medicine 12/06/22 Clarence Zabala MD [address] [place] [address] 12/06/22
--- OUTSIDE RECORDS SUMMARY | 2025-01-05 09:24 | XMS_ITS | Patient Health Record ---
Author Organization [facility] Address [address] [place], [place] [address] Care Team Providers Care Network Support Engineer Name Role Phone CATALINA GREENE Unavailable [phone] Elsi Zabala Unavailable Unavailable Allergies No Known [...] Date Coverage End Date Medicare Part B [place] [address] [place] [phone] [id number] [place] Self - patient is the insured [facility] [address] [address] [facility] [place] [address] [id number] LILI [place] Self - patient is the insured
--- OUTSIDE RECORDS SUMMARY | 2025-01-05 09:24 | XMS_ITS | Clinical Summary ---
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
--- NOTE | 2025-01-25 10:46 | P.PCNHOL_ITS ---
Holter/Event Monitor Holter/Event Monitor Date of procedure: 01/05/25 Holter/Event Procedure: Event Monitor Indications: Bradycardia Conclusion: 1. 14 days event monitor on 01/05/25. 2. Predominant rhythm is sinus rhythm. HR range 25-138 bpm; average HR 64 bpm. 3. There are rare premature supraventricular complexes, rare supraventricular couplets, and rare supraventricular triplets. There are 376 episodes of supra ventricular tachycardia with fastest at 138 bpm and longest lasting 12 seconds. 4. There are rare premature ventricular complexes and rare ventricular couplets. No ventricular tachycardia. 5. No significant pauses greater than 3 seconds. Patient had an episode of 2nd degree AV block, type I (Wenkebach) at HR 25 bpm on 01/17/25 at 11:51 pm. 6. No symptoms available for correlation.
== END 2025-01-05 08:58 | disposition home or self-care (01) ==
LOC: CHSCARD 08:59
PROVIDERS: PCP Internal Medicine; Visit Provider Internal Medicine
DX: R00.1 Bradycardia, unspecified (principal)
CPT/HCPCS: 93246

== ENCOUNTER 2025-01-10 08:55 | Outpatient (CLI) | payer MEDICARE, SELFPAY ==
--- NOTE | ~2025-01-10 | NM_ITS ---
EXAM/PROCEDURE: NM_HEPATWP_NM HISTORY: RUQ PAIN COMPARISON: None available. TECHNIQUE: Standard technique for hepatobiliary scintigraphy and ejection fraction performed Dose: 5.8 mCi technetium 99m Choletec. Following visualization of small bowel activity, patient was administered 1.9 mcg of Kinevac. FINDINGS: Prompt homogeneous liver uptake is noted. The gallbladder is visualized at approximately 15 minutes. Ejection fraction calculated at 11%. IMPRESSION: No evidence of cystic duct obstruction. Ejection fraction of 11% is significantly abnormal and could be associated with chronic cholecystitis. Reviewed, dictated and finalized at location A. 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
--- OUTSIDE RECORDS SUMMARY | 2025-01-10 09:24 | XMS_ITS | Clinical Summary ---
Author Organization [facility] Address [address] [place] [address] Care Team Providers Care Infertility Nurse Name Role Phone Clarence Zabala MD Primary Care Provider [phone] Clarence Zabala MD Unavailable [phone] Allergies No known active allergies Medications atorvastatin [...] (08/29/2020): Added automatically from request for surgery [id number] Pneumothorax 08/17/2020 Overview (08/17/2020): Added automatically from request for surgery [id number] Resolved Problems Problem Noted Date Diagnosed Date Resolved Date Hyponatremia 12/20/2022 12/21/2022 Assessment & Plan (12/20/2022 3:49 PM CDT): Likely secondary to hypovolemic hyponatremia - Check urine sodium, osmolality - Gentle IVF - Repeat BMP in AM Encounters Date Type Department Care Team Description 12/21/2024 10:12 AM CDT - 12/21/2024 11:59 PM CDT Hospital Encounter [facility] Radiology at [facility] [address] [place] [address] Follow-up examination after orthopedic surgery Discharge Disposition: Discharge to home or self care 12/21/2024 10:10 AM CDT Office Visit [facility] Medicine Orthopaedic Surgery [address] [place] [address] 1[address] [place] [address] Jl Encarnacion MD Follow-up examination after orthopedic [...] 11/03, 09/09/2015 Medical Devices Implanted Type Area Painting Instructor Device Identifier Shelf Expiration Date Model / Serial / Lot [employer] Simplex P Radiopaque Full Dose Cement Bone Sterile 6191-1-010 - Sna - [id number] Implanted:Qty: 1 on 12/18/2022 by Jl Encarnacion MD at [facility] Bone Cement [employer] 05/01/2023 6191-1-0 10 / NA / [id number] Description:Implant Pause pe rformed [employer] Perform Cortiloc 40mm Peg Shoulder Large Component Glenoid [id number] - [id number] - [id number] Implanted:Qty: 1 on 12/18/2022 by Jl Encarnacion MD at [facility] Other - see comments Left: Shoulder [employer] [id number] 02/27/2027 [id number] / [id number] 1 / Description:Implant Pause pe rformed [employer] Tray Stem Humeral Shoulder Reverse Aequalis Perform Dwx3ss - Sna - [id number] Implanted:Qty: 1 on 12/18/2022 by Jl Encarnacion MD at [facility] Other - see comments Left: Shoulder [employer] [id number] 04/29/2027 DWX3SS / NA / [id number] Description:Implant Pause pe rformed [employer] Perform Low Offset Modular Humeral Head Ti Jni299 - Sna - [id number] Implanted:Qty: 1 on 12/18/2022 by Jl Encarnacion MD at [facility] Other - see comments Left: Shoulder [employer] [id number] 05/17/2027 GDD234 / NA / [id number] Description:Implant Pause pe rformed [employer] Head Perform Cocr Modular Humeral Xos8751 - Sna - [id number] Implanted:Qty: 1 on 12/18/2022 by Jl Encarnacion MD at [facility] Other - see comments Left: Shoulder [employer] [id number] 05/03/2027 PRL4728 / NA / [id number] Description:Implant Pause pe rformed Procedures Procedure [...] BLOOD ORDERABLES Final R esult [facility] [address] [facility] [place] [address] * (ABNORMAL) Hemoglobin A1c (12/06/2022 10:31 AM CDT) Hgb A1C 7.0(H) 4.0 - 5.6 % TERESA DONNELLY Estimated Average Glucose 154 mg/dL TERESA DONNELLY Comment: The ADA recommends reporting an estimated Average Glucose (eAG) with all Hemoglobin A1c results using the equation derived from a study of 507 normal and diabetic adults. Minority populations were underrepresented and children were not included. (Diabetes Care 31:9329-4713, 2008). The eAG is not equivalent to a fasting glucose. Blood 12/06/2022 10:3 1 AM CDT 12/06/2022 11:05 AM CDT Melina Baer NP LAB BLOOD ORDERABLES Final Result Performing Organization Address [facility] Phone Number TER[facility] [address] [facility] [place] [address] from Last 3 Months or Most Recently Relevant to Health Maintenance Insurance MEDICARE AETNA SENIOR SUPPLEMENT MEDICARE [facility] SENIOR SUPPLEMENT MEDICARE AETNA SENIOR SUPPLEMENT MEDICARE [facility] Address: [address] [address] [place] [address] AET[employer] Advance Directives For more information, please contact: [phone] * Full Code (Latest Code Status on File) Date Activated Date Inactivated Comments 12/20/2022 2:42 PM 12/21/2022 4:22 PM * Full Code Date Activated Date Inactivated Comments 12/18/2022 2:54 PM 12/19/2022 8:56 PM Care Teams Infertility Nurse Relationship Specialty Start Date End Date Clarence Zabala MD [address] [place] [address] [address] PCP - General Internal Medicine 12/06/22 Clarence Zabala MD [address] [place] [place] [address] 12/06/22
--- OUTSIDE RECORDS SUMMARY | 2025-01-10 09:24 | XMS_ITS | Patient Health Record ---
Author Organization [facility] Address [address] [place], [place] [address] Care Team Providers Care First Assist Name Role Phone CATALINA GREENE Unavailable [phone] Elsi Zabala Unavailable Unavailable Allergies No Known [...] Date Coverage End Date Medicare Part B [place] [address] [place] [phone] [id number] [place] Self - [facility] the [facility] [address] [address] [place] [address] [id number] [phone] [id number] LILI [place] Self - patient is the insured
== END 2025-01-10 08:56 | disposition home or self-care (01) ==
LOC: CHSIMG 08:58
PROVIDERS: PCP Internal Medicine; Visit Provider Internal Medicine
DX: R10.11 Right upper quadrant pain (principal)
CPT/HCPCS: 78227; A9537; J2805